=== PATIENT | female | born 1970 | race Caucasian/White ===

== ENCOUNTER 2017-10-04 00:15 | Inpatient (IN) ==
[2017-10-04] MEDS ORDERED: 0.9 % Sodium Chloride 500 ML IVC ONE (00:31)
--- NOTE | 2017-10-04 00:40 | Emergency Department Note ---
Disposition Clinical Impression: Anginal equivalent, Neck pain, Nonadherence to medication Disposition: Admitted As Inpatient Condition: Good Referrals: NONE,PCP [Primary Care Provider] - Forms: ED Satisfaction Letter Time of Disposition: 02:29 General Adult HPI - General Chief complaint: ED Chest Pain Stated complaint: chest/neck/back pain Time Seen by Provider: 10/04/17 00:27 Source: patient, EMS Mode of arrival: EMS Limitations: no limitations Nursing Notes Reviewed: Yes Vital Signs Reviewed: Yes - History of Present Illness HPI Narrative: patient presents to the ED with the chief complaint of not feeling well. states she started having diffuse abdominal cramping today and 7-8 episodes of NBNB diarrhea. States on an episode of diarrhea today at 23:30 she got off the toilet and felt very lightheaded, dizzy, associated with neck pain and L arm pain which is similar to her previous [place] several years ago. States she took a nitro and it gave her a headache but resolved her L arm pain and neck pain. States she just feels weak and rundown and not well. Denies any h/o DVT/PE and is not on anti-coagulation. Pain Scale: 4 - Related Data Previous Rx's Medication Instructions Recorded Aspirin 81 mg PO DAILY #30 tab.chew 01/12/15 Atorvastatin [Lipitor] 80 mg PO HS #30 tablet 01/12/15 Lisinopril [Zestril] 2.5 mg PO DAILY #30 tablet 01/12/15 Metoprolol [Lopressor] 25 mg PO BID #60 tablet 01/12/15 Nitroglycerin 0.4 mg SL Q5MIN PRN #30 tab.subl 01/12/15 Ticagrelor [Brilinta] 90 mg PO BID #60 tablet 01/12/15 Sulfamethoxazole/Trimeth DS 1 each PO BID #20 tablet 09/12/15 [Bactrim DS] Allergies Allergy/AdvReac Type Severity Reaction Status Date / Time aluminum hydroxide AdvReac Chest Pain Verified 09/12/15 06:13 [From Maalox Advanced] bismuth subsalicylate AdvReac Chest Pain Verified 09/12/15 06:13 [From Pepto-Bismol] calcium carbonate AdvReac Chest Pain Verified 09/12/15 06:13 [From Maalox Advanced] magnesium AdvReac Chest Pain Verified 09/12/15 06:13 [From Maalox Advanced] simethicone AdvReac Chest Pain Verified 09/12/15 06:13 [From Maalox Advanced] Review of Systems: As reviewed in the HPI. All other systems reviewed are negative or normal. Past Medical History - Past Medical History Medical history: Reports: diabetes, hypertension, myocardial infarction Surgical history: Reports: hysterectomy Psychiatric history: Reports: no psych history - Social History Smoking Status: Current every day smoker Smokeless Tobacco Status: No Alcohol use: Reports: none Drug use: Reports: none Physical Exam - General Limitations: no limitations General appearance: alert, in no apparent distress - Head Head exam: atraumatic, normocephalic, normal inspection - Eye Eye exam: Present: normal appearance, PERRL, EOMI - ENT ENT exam: normal exam, normal oropharynx, mucous membranes moist - Neck Neck exam: Present: normal inspection, full ROM, trachea midline - Chest Chest inspection: Present: normal inspection, symmetric chest wall rise - Respiratory Respiratory exam: Present: normal lung sounds bilaterally - Cardiovascular Cardiovascular exam: Present: regular rate, normal rhythm, normal heart sounds - Abdominal Exam Abdominal exam: Present: soft, Non-Tender. Absent: tenderness, distention, guarding, rebound, rigidity - Extremities Exam Extremities exam: Present: normal inspection, full ROM. Absent: tenderness, pedal edema - Neurological Exam Neurological exam: Present: alert, oriented X3 - Psychiatric Psychiatric exam: Present: normal affect, normal mood - Skin Skin exam: Present: warm, dry, intact, normal color Course Course Narrative: patient with anginal equivalent. Pain-free at this time. We will workup and likely admit - Reevaluation(s) Reevaluation #1: Labs are back and are unremarkable. Patient remained pain-free. She was having her anginal equivalent, however. We will admit to the hospital service. Reevaluation #2: Admitted the hospitalist service. Did request that we trend out her troponins which we will order. Patient also given aspirin Vital Signs Temperature 98.0 F 10/04/17 00:16 Pulse Rate 98 10/04/17 00:16 Respiratory Rate 16 10/04/17 00:16 Blood Pressure 114/78 10/04/17 00:16 O2 Sat by Pulse Oximetry 100 10/04/17 00:16 Temperature 98.0 F 10/04/17 00:16 Pulse Rate 104 10/04/17 01:53 Respiratory Rate 16 10/04/17 01:53 Blood Pressure 143/88 10/04/17 01:53 O2 Sat by Pulse Oximetry 99 10/04/17 01:53 Oxygen Delivery Oxygen Delivery Room Air Medical Decision Making - Medical Records Medical records reviewed: Yes I reviewed the patient's medical records. - Lab Data Lab results reviewed: Yes I reviewed the patient's lab results. Result diagrams: 10/04/17 01:28 10/04/17 01:28 Lab Results 10/04/17 10/04/17 10/04/17 Range/Units 01:28 01: 01:28 WBC 13.7 H (4.3-11.1) K/mcL RBC 5.35 H (3.82-4.97) M/mcL Hgb 16.4 H (11.5-15.4) g/dL Hct 46.5 H (35.3-44.9) % MCV 86.9 (83.0-100.0) fL MCH 30.7 (28.0-33.3) pg MCHC 35.3 (31.6-35.5) g/dL RDW 12.3 (11.5-14.5) % Plt Count 190 (140-400) K/mcL MPV 10.4 (9.4-12.4) fL Immature Gran % 0.3 (0-4) % Seg Neutrophils % 90.9 % Lymphocytes % 4.4 % Monocytes % 3.9 % Eosinophils % 0.4 % Basophils % 0.1 % Neutrophils # 12.5 H (1.6-8.9) K/mcL Lymphocytes # 0.6 (0.6-4.6) K/mcL Monocytes # 0.5 (0.0-1.3) K/mcL Eosinophils # 0.1 (0.0-0.6) K/mcL Basophils # 0.0 (0.0-0.2) K/mcL D-Dimer 317 (0-500) ng/mLFEU Sodium 130 L (136-145) mEq/L Potassium 4.2 (3.5-5.1) mEq/L Chloride 97 L (98-107) mEq/L Carbon Dioxide 23 (23-29) mEq/L BUN 13 (6-20) mg/dL Creatinine 0.66 (0.60-1.20) mg/dL Est GFR ( Amer) > 60 (> 60) Est GFR (Non-Af Amer) > 60 (> 60) BUN/Creatinine Ratio 20 (6-26) Glucose 297 H (70-105) mg/dL Calculated Osmolality 281 (280-300) Calcium 9.3 (8.6-10.3) mg/dL Total Bilirubin 0.9 (0.3-1.0) mg/dL Direct Bilirubin 0.1 (0.0-0.2) mg/dL Indirect Bilirubin 0.8 (0.0-1.2) mg/dL AST 11 L (13-39) Units/L ALT 18 (7-52) Units/L Alkaline Phosphatase 78 (34-104) Units/L Troponin I < 0.03 (< 0.04) ng/mL Serum Total Protein 6.7 (6.4-8.9) g/dL Albumin 4.1 (3.5-5.7) g/dL Globulin 2.6 (2.4-3.5) g/dL Albumin/Globulin Ratio 1.6 (1.1-2.2) Lipase 26 (11-82) Units/L Urine Color (Yellow) Urine Clarity (Clear) Urine pH (5.0-8.0) pH Units Ur Specific [place] (1.010-1.025) Urine Protein (Neg-Trace) mg/dL Urine Glucose (UA) (Normal) mg/dL Urine Ketones (Negative) mg/dL Urine Blood (Negative) Urine Nitrite (Negative) Urine Bilirubin (Negative) Urine Urobilinogen (Normal) mg/dL Ur Leukocyte Esterase (Negative) Urine Microscopic RBC (0-3) per hpf Urine Microscopic WBC (0-3) per hpf Ur Squamous Epith Cells (None-Few) per lpf Urine Bacteria (None-Few) per hpf Hyaline Casts (None-Few) per lpf Ur Culture Indicated? (NO) 10/04/17 Range/Units 01:41 WBC (4.3-11.1) K/mcL RBC (3.82-4.97) M/mcL Hgb (11.5-15.4) g/dL Hct (35.3-44.9) % MCV (83.0-100.0) fL MCH (28.0-33.3) pg MCHC (31.6-35.5) g/dL RDW (11.5-14.5) % Plt Count (140-400) K/mcL MPV (9.4-12.4) fL Immature Gran % (0-4) % Seg Neutrophils % % Lymphocytes % % Monocytes % % Eosinophils % % Basophils % % Neutrophils # (1.6-8.9) K/mcL Lymphocytes # (0.6-4.6) K/mcL Monocytes # (0.0-1.3) K/mcL Eosinophils # (0.0-0.6) K/mcL Basophils # (0.0-0.2) K/mcL D-Dimer (0-500) ng/mLFEU Sodium (136-145) mEq/L Potassium (3.5-5.1) mEq/L Chloride (98-107) mEq/L Carbon Dioxide (23-29) mEq/L BUN (6-20) mg/dL Creatinine (0.60-1.20) mg/dL Est GFR ( Amer) (> 60) Est GFR (Non-Af Amer) (> 60) BUN/Creatinine Ratio (6-26) Glucose (70-105) mg/dL Calculated Osmolality (280-300) Calcium (8.6-10.3) mg/dL Total Bilirubin (0.3-1.0) mg/dL Direct Bilirubin (0.0-0.2) mg/dL Indirect Bilirubin (0.0-1.2) mg/dL AST (13-39) Units/L ALT (7-52) Units/L Alkaline Phosphatase (34-104) Units/L Troponin I (< 0.04) ng/mL Serum Total Protein (6.4-8.9) g/dL Albumin (3.5-5.7) g/dL Globulin (2.4-3.5) g/dL Albumin/Globulin Ratio (1.1-2.2) Lipase (11-82) Units/L Urine Color Yellow (Yellow) Urine Clarity Clear (Clear) Urine pH 5.5 (5.0-8.0) pH Units Ur Specific [place] 1.026 H (1.010-1.025) Urine Protein 30 H (Neg-Trace) mg/dL Urine Glucose (UA) >=1000 H (Normal) mg/dL Urine Ketones Negative (Negative) mg/dL Urine Blood Negative (Negative) Urine Nitrite Negative (Negative) Urine Bilirubin Negative (Negative) Urine Urobilinogen Normal (Normal) mg/dL Ur Leukocyte Esterase Negative (Negative) Urine Microscopic RBC 3-5 H (0-3) per hpf Urine Microscopic WBC 0-3 (0-3) per hpf Ur Squamous Epith Cells Many H (None-Few) per lpf Urine Bacteria None Seen (None-Few) per hpf Hyaline Casts Few (None-Few) per lpf Ur Culture Indicated? NO (NO) - Radiology Data Radiology results reviewed: Yes I reviewed the patient's radiology results. - EKG Data EKG #1 EKG attestation: Yes I reviewed and interpreted this EKG. EKG results narrative: sinus rhythm, normal rate and intervals, left axis,LVH, no acute ischemic changes
[2017-10-04 01:39] LABS: Basophils % 0.1 %; Eosinophils # 0.1 K/mcL (0.0-0.6); Eosinophils % 0.4 %; Hematocrit 46.5 % (35.3-44.9); Hemoglobin 16.4 g/dL (11.5-15.4); Immature Granulocytes % 0.3 % (0-4); Lymphocytes # 0.6 K/mcL (0.6-4.6); Lymphocytes % 4.4 %; Mean Corpuscular HGB Conc 35.3 g/dL (31.6-35.5); Mean Corpuscular Hemoglobin 30.7 pg (28.0-33.3); Mean Corpuscular Volume 86.9 fL (83.0-100.0); Mean Platelet Volume 10.4 fL (9.4-12.4); Monocytes # 0.5 K/mcL (0.0-1.3); Monocytes % 3.9 %; Neutrophils # 12.5 K/mcL (1.6-8.9); Platelet Count 190 K/mcL (140-400); Red Blood Count 5.35 M/mcL (3.82-4.97); Red Cell Distribution Width 12.3 % (11.5-14.5); Segmented Neutrophils % 90.9 %
--- NOTE | 2017-10-04 01:40 | Emergency Department Note ---
Disposition Clinical Impression: Anginal equivalent, Neck pain, Nonadherence to medication Disposition: Admitted As Inpatient Condition: Good Referrals: NONE,PCP [Primary Care Provider] - Forms: ED Satisfaction Letter General Adult HPI - General Chief complaint: ED Chest Pain Stated complaint: chest/neck/back pain Time Seen by Provider: 10/04/17 00:27 Source: patient, EMS Mode of arrival: EMS Limitations: no limitations - History of Present Illness Pain Scale: 4 - Related Data Previous Rx's Medication Instructions Recorded Aspirin 81 mg PO DAILY #30 tab.chew 01/12/15 Atorvastatin [Lipitor] 80 mg PO HS #30 tablet 01/12/15 Lisinopril [Zestril] 2.5 mg PO DAILY #30 tablet 01/12/15 Metoprolol [Lopressor] 25 mg PO BID #60 tablet 01/12/15 Nitroglycerin 0.4 mg SL Q5MIN PRN #30 tab.subl 01/12/15 Ticagrelor [Brilinta] 90 mg PO BID #60 tablet 01/12/15 Sulfamethoxazole/Trimeth DS 1 each PO BID #20 tablet 09/12/15 [Bactrim DS] Allergies Allergy/AdvReac Type Severity Reaction Status Date / Time aluminum hydroxide AdvReac Chest Pain Verified 09/12/15 06:13 [From Maalox Advanced] bismuth subsalicylate AdvReac Chest Pain Verified 09/12/15 06:13 [From Pepto-Bismol] calcium carbonate AdvReac Chest Pain Verified 09/12/15 06:13 [From Maalox Advanced] magnesium AdvReac Chest Pain Verified 09/12/15 06:13 [From Maalox Advanced] simethicone AdvReac Chest Pain Verified 09/12/15 06:13 [From Maalox Advanced] Past Medical History - Past Medical History Medical history: Reports: diabetes, hypertension, myocardial infarction Surgical history: Reports: hysterectomy Psychiatric history: Reports: no psych history - Social History Smoking Status: Current every day smoker Smokeless Tobacco Status: No Alcohol use: Reports: none Drug use: Reports: none Physical Exam - General Limitations: no limitations General appearance: alert, in no apparent distress Course Vital Signs Temperature 98.0 F 10/04/17 00:16 Pulse Rate 98 10/04/17 00:16 Respiratory Rate 16 10/04/17 00:16 Blood Pressure 114/78 10/04/17 00:16 O2 Sat by Pulse Oximetry 100 10/04/17 00:16 Temperature 98.0 F 10/04/17 00:16 Pulse Rate 104 10/04/17 01:53 Respiratory Rate 16 10/04/17 01:53 Blood Pressure 143/88 10/04/17 01:53 O2 Sat by Pulse Oximetry 99 10/04/17 01:53 Oxygen Delivery Oxygen Delivery Room Air Medical Decision Making - Lab Data Result diagrams: 10/04/17 01:28 10/04/17 01:28 Lab Results 10/04/17 10/04/17 10/04/17 Range/Units 01:28 01:28 01:28 WBC 13.7 H (4.3-11.1) K/mcL RBC 5.35 H (3.82-4.97) M/mcL Hgb 16.4 H (11.5-15.4) g/dL Hct 46.5 H (35.3-44.9) % MCV 86.9 (83.0-100.0) fL MCH 30.7 (28.0-33.3) pg MCHC 35.3 (31.6-35.5) g/dL RDW 12.3 (11.5-14.5) % Plt Count 190 (140-400) K/mcL MPV 10.4 (9.4-12.4) fL Immature Gran % 0.3 (0-4) % Seg Neutrophils % 90.9 % Lymphocytes % 4.4 % Monocytes % 3.9 % Eosinophils % 0.4 % Basophils % 0.1 % Neutrophils # 12.5 H (1.6-8.9) K/mcL Lymphocytes # 0.6 (0.6-4.6) K/mcL Monocytes # 0.5 (0.0-1.3) K/mcL Eosinophils # 0.1 (0.0-0.6) K/mcL Basophils # 0.0 (0.0-0.2) K/mcL D-Dimer 317 (0-500) ng/mLFEU Sodium 130 L (136-145) mEq/L Potassium 4.2 (3.5-5.1) mEq/L Chloride 97 L (98-107) mEq/L Carbon Dioxide 23 (23-29) mEq/L BUN 13 (6-20) mg/dL Creatinine 0.66 (0.60-1.20) mg/dL Est GFR ( Amer) > 60 (> 60) Est GFR (Non-Af Amer) > 60 (> 60) BUN/Creatinine Ratio 20 (6-26) Glucose 297 H (70-105) mg/dL Calculated Osmolality 281 (280-300) Calcium 9.3 (8.6-10.3) mg/dL Total Bilirubin 0.9 (0.3-1.0) mg/dL Direct Bilirubin 0.1 (0.0-0.2) mg/dL Indirect Bilirubin 0.8 (0.0-1.2) mg/dL AST 11 L (13-39) Units/L ALT 18 (7-52) Units/L Alkaline Phosphatase 78 (34-104) Units/L Troponin I < 0.03 (< 0.04) ng/mL Serum Total Protein 6.7 (6.4-8.9) g/dL Albumin 4.1 (3.5-5.7) g/dL Globulin 2.6 (2.4-3.5) g/dL Albumin/Globulin Ratio 1.6 (1.1-2.2) Lipase 26 (11-82) Units/L Urine Color (Yellow) Urine Clarity (Clear) Urine pH (5.0-8.0) pH Units Ur Specific [place] (1.010-1.025) Urine Protein (Neg-Trace) mg/dL Urine Glucose (UA) (Normal) mg/dL Urine Ketones (Negative) mg/dL Urine Blood (Negative) Urine Nitrite (Negative) Urine Bilirubin (Negative) Urine Urobilinogen (Normal) mg/dL Ur Leukocyte Esterase (Negative) Urine Microscopic RBC (0-3) per hpf Urine Microscopic WBC (0-3) per hpf Ur Squamous Epith Cells (None-Few) per lpf Urine Bacteria (None-Few) per hpf Hyaline Casts (None-Few) per lpf Ur Culture Indicated? (NO) 10/04/17 Range/Units 01:41 WBC (4.3-11.1) K/mcL RBC (3.82-4.97) M/mcL Hgb (11.5-15.4) g/dL Hct (35.3-44.9) % MCV (83.0-100.0) fL MCH (28.0-33.3) pg MCHC (31.6-35.5) g/dL RDW (11.5-14.5) % Plt Count (140-400) K/mcL MPV (9.4-12.4) fL Immature Gran % (0-4) % Seg Neutrophils % % Lymphocytes % % Monocytes % % Eosinophils % % Basophils % % Neutrophils # (1.6-8.9) K/mcL Lymphocytes # (0.6-4.6) K/mcL Monocytes # (0.0-1.3) K/mcL Eosinophils # (0.0-0.6) K/mcL Basophils # (0.0-0.2) K/mcL D-Dimer (0-500) ng/mLFEU Sodium (136-145) mEq/L Potassium (3.5-5.1) mEq/L Chloride (98-107) mEq/L Carbon Dioxide (23-29) mEq/L BUN (6-20) mg/dL Creatinine (0.60-1.20) mg/dL Est GFR ( Amer) (> 60) Est GFR (Non-Af Amer) (> 60) BUN/Creatinine Ratio (6-26) Glucose (70-105) mg/dL Calculated Osmolality (280-300) Calcium (8.6-10.3) mg/dL Total Bilirubin (0.3-1.0) mg/dL Direct Bilirubin (0.0-0.2) mg/dL Indirect Bilirubin (0.0-1.2) mg/dL AST (13-39) Units/L ALT (7-52) Units/L Alkaline Phosphatase (34-104) Units/L Troponin I (< 0.04) ng/mL Serum Total Protein (6.4-8.9) g/dL Albumin (3.5-5.7) g/dL Globulin (2.4-3.5) g/dL Albumin/Globulin Ratio (1.1-2.2) Lipase (11-82) Units/L Urine Color Yellow (Yellow) Urine Clarity Clear (Clear) Urine pH 5.5 (5.0-8.0) pH Units Ur Specific [place] 1.026 H (1.010-1.025) Urine Protein 30 H (Neg-Trace) mg/dL Urine Glucose (UA) >=1000 H (Normal) mg/dL Urine Ketones Negative (Negative) mg/dL Urine Blood Negative (Negative) Urine Nitrite Negative (Negative) Urine Bilirubin Negative (Negative) Urine Urobilinogen Normal (Normal) mg/dL Ur Leukocyte Esterase Negative (Negative) Urine Microscopic RBC 3-5 H (0-3) per hpf Urine Microscopic WBC 0-3 (0-3) per hpf Ur Squamous Epith Cells Many H (None-Few) per lpf Urine Bacteria None Seen (None-Few) per hpf Hyaline Casts Few (None-Few) per lpf Ur Culture Indicated? NO (NO) Attestation Statement - Attestation Attestation: I examined this patient and my medical decision-making was reviewed with the Resident Physician. I agree with the documented findings, disposition and treatment plan as described except to the extent set forth below. Patient presents to the emergency department with a chief complaint of neck and arm pain. Patient has had diarrhea all day. She had an episode tonight where she had pain in the left arm and in her neck and some on her back. Patient is concerned because she has a history of an NH in 2014 during which time she had a stent placed. States this feels similar. Patient is not currently taking her medication secondary to insurance reasons. She does take a daily aspirin. Her symptoms are resolved at this time except for the weakness. Patient awake and alert in no distress on examination.` Heart regular lungs clear. Plan. Cardiac workup. Likely observation. EKG shows no acute abnormalities. Patient has a slight leukocytosis but no focal infection. Admitted for further cardiac workup.
[2017-10-04 01:51] LABS: Bilirubin,Urine Negative (Negative); Blood,Urine Negative (Negative); Clarity,Urine Clear (Clear); Color,Urine Yellow (Yellow); Glucose,Urine (UA) >=1000 mg/dL (Normal); Ketones,Urine Negative (Negative); Leukocyte Esterase,Urine Negative (Negative); Nitrite,Urine Negative (Negative); PH,Urine 5.5 pH Units (5.0-8.0); Protein,Urine 30 mg/dL (Neg-Trace); Specific Gravity,Urine 1.026 (1.010-1.025); Urobilinogen,Urine Normal (Normal)
[2017-10-04 01:58] LABS: Bacteria,Urine None Seen per hpf (None-Few); Hyaline Casts,Urine Few per lpf (None-Few); Squamous Epithelial Cell,Urine Many per lpf (None-Few); WBC,Urine 0-3 per hpf (0-3)
[2017-10-04 01:59] LABS: Troponin I < 0.03 ng/mL (< 0.04)
[2017-10-04 02:00] LABS: Alanine Aminotransferase 18 Units/L (7-52); Albumin 4.1 g/dL (3.5-5.7); Albumin/Globulin Ratio 1.6 (1.1-2.2); Alkaline Phosphatase 78 Units/L (34-104); Aspartate Amino Transferase 11 Units/L (13-39); BUN/Creatinine Ratio 20 (6-26); Bilirubin,Direct 0.1 mg/dL (0.0-0.2); Bilirubin,Indirect 0.8 mg/dL (0.0-1.2); Bilirubin,Total 0.9 mg/dL (0.3-1.0); Blood Urea Nitrogen 13 mg/dL (6-20); Calcium 9.3 mg/dL (8.6-10.3); Carbon Dioxide 23 mEq/L (23-29); Chloride 97 mEq/L (98-107); Globulin 2.6 g/dL (2.4-3.5); Glucose 297 mg/dL (70-105); Lipase 26 Units/L (11-82); Osmolality,Calculated 281 (280-300); Potassium 4.2 mEq/L (3.5-5.1); Sodium 130 mEq/L (136-145); Total Protein 6.7 g/dL (6.4-8.9); eGFR For Non-African Americans > 60 (> 60)
[2017-10-04] MEDS ORDERED: Aspirin 81 MG TAB.CHEW PO ONE (02:28)
[2017-10-04] MEDS ORDERED: Naloxone 0.4 MG/ML INJ IVP PRN (08:48)
[2017-10-04] MEDS ORDERED: Aspirin Enteric Coated 81 MG Tablet PO SCH (09:00)
--- NOTE | 2017-10-04 09:07 | Internal Med History&Physical ---
Date of Encounter: 10/04/17 Time of Encounter: 08:15 Internal Medicine - H&P: HPI Chief complaint: chest and neck discomfort History of present illness: Ms. Adame is a 46 year old female with past medical history of STEMI in 2015 s /p BMS stent in RCA, hypertension, diabetes, medication noncompliance, presented to the ED with 12 hour history of chest and neck discomfort. Describes a shooting, radiates to left shoulder, associated with nausea but no vomiting. She also complains of lightheadedness when the pain came on. No aggravating factor but was mildly relieved with nitro in the ED. No palpitation , orthopnea, PND, or LE swelling. She has also had diarrhea for 1 day, 7 episodes of watery diarrhea. Her boyfriend was also not feeling well before her symptoms came on. Denies fever or chills, abdominal pain, dysuria, or hematuria. He GED she was tachycardic but otherwise is stable, saturating well on room air. Initial workup revealed leukocytosis of 13.7 and glucose of 297. Troponins done in 3 hour interval were negative. EKG was not physically available for review but was reported to have no significant abnormalities. CXR WNL. Past Med Surg Social Fam HX - Past Medical History Medical history: diabetes, hypertension, myocardial infarction Psychiatric history: no psych history - Past Surgical History Surgical History: hysterectomy - Social History Smoking Status: Current every day smoker Packs per day: 0.5 Smokeless Tobacco Status: No Alcohol use: none Drug use: none - Family History Mother Hx Family Cardiac Disorders: Yes Internal Medicine - H&P: Meds RX: Aspirin 81 mg PO DAILY #30 tab.chew 01/12/15 [Rx] RX: Atorvastatin [Lipitor] 80 mg PO HS #30 tablet 01/12/15 [Rx] RX: Lisinopril [Zestril] 2.5 mg PO DAILY #30 tablet 01/12/15 [Rx] RX: Metoprolol [Lopressor] 25 mg PO BID #60 tablet 01/12/15 [Rx] RX: Nitroglycerin 0.4 mg SL Q5MIN PRN #30 tab.subl 01/12/15 [Rx] RX: Ticagrelor [Brilinta] 90 mg PO BID #60 tablet 01/12/15 [Rx] Sulfamethoxazole/Trimeth DS [Bactrim DS] 1 each PO BID #20 tablet 09/12/15 [Rx] 3 Allergy/AdvReac Type Severity Reaction Status Date / Time aluminum hydroxide AdvReac Chest Pain Verified 09/12/15 06:13 [From Maalox Advanced] bismuth subsalicylate AdvReac Chest Pain Verified 09/12/15 06:13 [From Pepto-Bismol] calcium carbonate AdvReac Chest Pain Verified 09/12/15 06:13 [From Maalox Advanced] magnesium AdvReac Chest Pain Verified 09/12/15 06:13 [From Maalox Advanced] simethicone AdvReac Chest Pain Verified 09/12/15 06:13 [From Maalox Advanced] All Systems PM: A 10-system review of systems was performed and is negative for pertinent findings except as documented above in the HPI. - Constitutional Vitals: Temp Pulse Resp BP Pulse Ox 98.4 F 86 16 157/88 96 10/04/17 08:16 10/04/17 08:16 10/04/17 08:16 10/04/17 08:16 10/04/17 08:16 Internal Med - H&P Results - Labs CBC & Chem 7: 10/04/17 01:28 10/04/17 01:28 Labs: Cardiac Enzymes 10/04/17 Range/Units 04:43 Troponin I < 0.03 (< 0.04) ng/mL - Assessment and plan (1) Anginal equivalent Current Visit: Yes Status: Acute Assessment and plan: Presented with neck pain radiating to left shoulder which was her presenting symptom back in 2014 when she was diagnosed with STEMI. Troponin negative 2 in 3 hour interval, EKG reported to have no significant abnormalities but unable to find a physical copy. We will repeat EKG Discussed with cardiology over the phone; given her medication noncompliance, we will proceed with a stress test first before deciding on the possible [facility] check A1c and lipid panel (2) Nonadherence to medication Current Visit: No Status: Chronic Assessment and plan: Stressed the importance of medication adherence given the prior stenting. (3) Diabetes mellitus Current Visit: No Status: Chronic Assessment and plan: Last A1c in 2014 was 7.5. Not taking any medicine at home Start moderate dose sliding scale coverage repeat A1c Qualifiers: Diabetes mellitus type: type 2 Diabetes mellitus complication status: with neurologic complications Diabetes mellitus complication detail: with unspecified neuropathy Qualified Code(s): E11.40 - Type 2 diabetes mellitus with diabetic neuropathy, unspecified (4) Hypertension Current Visit: No Status: Chronic Assessment and plan: Conjugated by noncompliance. We will monitor Qualifiers: Hypertension type: unspecified Qualified Code(s): I10 - Essential (primary ) hypertension - Time Spent With Patient Total time spent is greater than 50% in coordination of care (as documented) at patient's floor/unit and/or counseling patient:
[2017-10-04] MEDS ORDERED: *HR* Dextrose 50 % in Water (Syg) 50 ML SYRINGE IVP PRN (09:15)
[2017-10-04] MEDS ORDERED: Dextrose Gel 15 GM/37.5 ML TUBE PO PRN ×2 (09:15)
[2017-10-04] MEDS ORDERED: D5% in Water 1,000 ML IVC PRN (09:15)
[2017-10-04 11:49] LABS: Estimated Average Glucose 206 mg/dl; Hemoglobin A1C 8.8 %
[2017-10-04 11:55] LABS: Troponin I < 0.03 ng/mL (< 0.04)
[2017-10-04 12:00] LABS: Chol/HDL Ratio 5.4 (0-4.9); Cholesterol 174 mg/dL (< 200); HDL Cholesterol 32 mg/dL (40-59); LDL Cholesterol,Calculated 109 mg/dL (0-99); Triglycerides 163 mg/dL (< 150)
[2017-10-04] MEDS ORDERED: Regadenoson 0.4 MG/5 ML SYRINGE IVP ONE (13:30)
--- NOTE | 2017-10-04 13:35 | Cardiology Consult Note ---
<Cholo Arora - Last Filed: 10/04/17 13:32> Date of Encounter: 10/04/17 Time of Encounter: 13:30 Assessment and Plan (1) Anginal equivalent Current Visit: Yes Status: Acute Typical anginal symptoms in patient with known CAD. States that she quit taking all medications two years ago. Troponin negative x 2. EKG with no acute T/ST changes. Stress test pending. Check TTE. NTG PRN chest pain. Recommend asa, statin, and bb. (2) CAD (coronary artery disease) Current Visit: Yes Status: Acute H/o CAD s/p STEMI and PCI in 2014. [facility] 2014 showed 30% stenosis LMCA, 50% stenosis LAD after D1 and 70% stenosis mLAD, 90% stenosis D1 (small vessel). 50 % stenosis in the Mid Circumflex.80% stenosis in the 1st Marginal. 95% stenosis in the Mid RCA s/p PCI with ERIC. TTE 01/11/15 showed EF 65-70%, no significant valvular disease. Asa, statin, bb. Smoking cessation discussed. Medication compliance stressed. Qualifiers: Coronary Disease-Associated Artery/Lesion type: [place] artery [place] vs. transplanted heart: [place] heart Associated angina: with unspecified angina Qualified Code(s): I25.119 - Atherosclerotic heart disease of [place] coronary artery with unspecified angina pectoris Discussion w patient/family: The assessment and plan as outlined above was discussed with the patient and/or family members who expressed understanding and agreement. All questions were answered. Thank you for involving us in the care of your patient. Please call with any questions. History of Present Illness Consult date: 10/04/17 Requesting physician: Nirmal Herman Wadb Consult reason: Chest pain, history of CAD and non-compliance Chief complaint: Chest pain History of present illness: Ms. Adame is a 46 year old female with past medical history of CAD s/p STEMI and PCI in 2015, HTN, HLD, DM type II, and tobacco use who presents with the c/ o arm and neck pain, and feeling flushed. Symptoms started while she was working. She sat down at work and started to feel better. She took one SL NTG with no relief. She thinks the NTG was 3 years old. States that she lost her medical card two years ago and stopped taking all of her medications. She unfortunately continues to smoke 1/2 pack a day. States she was feeling well up until this event. She was seen in the stress lab. During her stress test she did c/o neck and ARM pain. No changes noted on her EKG. Troponin negative x2 . Past Med Surg Social Fam HX - Past Medical History Attestation: Yes The following information was validated with the patient. Medical history: coronary artery disease, diabetes, hypertension, myocardial infarction, valvular heart disease Psychiatric history: no psych history - Past Surgical History Surgical History: hysterectomy - Social History Smoking Status: Current every day smoker Packs per day: 0.5 Smokeless Tobacco Status: No Alcohol use: none Drug use: none - Family History Mother Hx Family Cardiac Disorders: Yes Medications and Allergies Aspirin 81 mg PO DAILY #30 tab.chew 01/12/15 [Rx] 3 Allergy/AdvReac Type Severity Reaction Status Date / Time aluminum hydroxide AdvReac Chest Pain Verified 09/12/15 06:13 [From Maalox Advanced] bismuth subsalicylate AdvReac Chest Pain Verified 09/12/15 06:13 [From Pepto-Bismol] calcium carbonate AdvReac Chest Pain Verified 09/12/15 06:13 [From Maalox Advanced] magnesium AdvReac Chest Pain Verified 09/12/15 06:13 [From Maalox Advanced] simethicone AdvReac Chest Pain Verified 09/12/15 06:13 [From Maalox Advanced] All Systems Review: The remainder of the systems were reviewed and are negative Physical Examination Vital Signs, Last 4 Hours Temp Pulse Resp BP Pulse Ox 10/04/17 11:56 99.1 F 89 14 123/77 96 General: Conversant, No Apparent Distress HEENT: Atraumatic, Normocephaly, Mucus Membranes Moist Neck: No JVD, Normal carotid pulses Cardiac: Reg Rate and Rhythm, Normal S1 and S2, No Murmur Lungs: Normal Breath Sounds, No Wheeze, Rales, Rhonchi Neuro: Alert and responsive, No focal deficits noted Abdomen: Soft, Non-Tender Skin: No rashes noted on visualized skin Musculoskeletal: No Chest Wall Tenderness Extremities: No Clubbing, No Cyanosis, No Edema, Normal Pulses Results 10/04/17 01:28 10/04/17 01:28 Lab Results 10/04/17 10/04/17 04:43 10:29 Troponin I < 0.03 < 0.03 - Imaging and Cardiology Stress Test: pending Echo: pending Cardiac cath: report reviewed - EKG Interpretation EKG results cardiology: personally reviewed (SR with no acute ST changes.) Consult Discharge Plan - Plan Referrals: NONE,PCP [Primary Care Provider] - <Itzel Romero - Last Filed: 10/04/17 16:19> Date of Encounter: 10/04/17 - Attending Attestation I examined this patient and my medical decision-making was reviewed with the [employer]. I agree with the documented findings, disposition and treatment plan as described. Ms. Adame presents with chest pain with negative troponins. Has known extensive CAD having undergone cath and stenting in 2014. She stopped all of her medications about about 2 years ago during a stressful time in her life. She has ongoing risk factors and continues to smoke. Her stress test demonstrated inferior and inferolateral perfusion defect consistent with ischemia possibly correlating to the right territory or dominant OM. We discussed LHC, R/B/A. The patient expressed understanding and agreement to proceed. Denies upcoming elective procedures. No history of bleeding events. Renal function normal. Assessment and Plan Discussion w patient/family: The assessment and plan as outlined above was discussed with the patient and/or family members who expressed understanding and agreement. All questions were answered. Thank you for involving us in the care of your patient. Please call with any questions. History of Present Illness History of present illness: Ms. Adame is a 46 year old female All Systems Review: The remainder of the systems were reviewed and are negative Physical Examination Vital Signs, Last 4 Hours Temp Pulse Resp BP Pulse Ox 10/04/17 15:53 99.2 F 81 15 160/92 98 Results 10/04/17 01:28 10/04/17 01:28 Lab Results 10/04/17 10/04/17 04:43 10:29 Troponin I < 0.03 < 0.03
[2017-10-04] MEDS: Insulin LISPRO 300 UNITS/3 ML VIAL SQ SCH ×2 (16:18→17:36)
[2017-10-05] MEDS: Insulin LISPRO 300 UNITS/3 ML VIAL SQ SCH ×5 (00:29→21:29)
[2017-10-05 01:27] LABS: BUN/Creatinine Ratio 14 (6-26); Blood Urea Nitrogen 13 mg/dL (6-20); Calcium 9.1 mg/dL (8.6-10.3); Carbon Dioxide 29 mEq/L (23-29); Chloride 106 mEq/L (98-107); Glucose 237 mg/dL (70-105); Osmolality,Calculated 282 (280-300); Potassium 4.5 mEq/L (3.5-5.1); Sodium 132 mEq/L (136-145); eGFR For Non-African Americans > 60 (> 60)
[2017-10-05 01:40] LABS: Basophils % 0.2 %; Eosinophils # 0.2 K/mcL (0.0-0.6); Eosinophils % 2.5 %; Hematocrit 43.4 % (35.3-44.9); Immature Granulocytes % 0.3 % (0-4); Lymphocytes # 1.3 K/mcL (0.6-4.6); Lymphocytes % 21.2 %; Mean Corpuscular HGB Conc 33.6 g/dL (31.6-35.5); Mean Corpuscular Hemoglobin 29.8 pg (28.0-33.3); Mean Corpuscular Volume 88.6 fL (83.0-100.0); Mean Platelet Volume 10.6 fL (9.4-12.4); Monocytes # 0.6 K/mcL (0.0-1.3); Monocytes % 8.9 %; Neutrophils # 4.2 K/mcL (1.6-8.9); Platelet Count 192 K/mcL (140-400); Red Cell Distribution Width 12.4 % (11.5-14.5); Segmented Neutrophils % 66.9 %
[2017-10-05 01:45] LABS: Hemoglobin 14.6 g/dL (11.5-15.4)
[2017-10-05] MEDS ORDERED: 0.9 % Sodium Chloride 1,000 ML ONE ×2 (09:55→10:25)
[2017-10-05] MEDS ORDERED: Heparin 1,000 UNITS/500 mL 500 ML ONE (09:55)
[2017-10-05] MEDS ORDERED: ISOVUE-370 200 ML INFUS..BTL IV ONE ×2 (09:56→10:25)
[2017-10-05] MEDS: Aspirin 81 MG TAB.CHEW PO SCH (09:56)
[2017-10-05] MEDS ORDERED: *HR* Heparin 10,000 UNIT/10 ML VIAL ONE (09:56)
[2017-10-05] MEDS ORDERED: Nitroglycerin 1,000 MCG/10 ML VIAL IV ONE (09:56)
[2017-10-05] MEDS ORDERED: *HR* FentaNYL (PF) 100 MCG/2 ML VIAL ONE (10:25)
[2017-10-05] MEDS ORDERED: *HR* Midazolam HCl 2 MG/2 ML VIAL ONE (10:25)
[2017-10-05] MEDS ORDERED: Tirofiban 12.5 MG/250ML 12.5 MG/250 ML BAG ONE (10:25)
--- NOTE | 2017-10-05 10:36 | Pre-Sedation Evaluation ---
Pre-sedation evaluation - Pre-sedation checklist Date of procedure: 10/05/17 Procedure: C Recent Vitals: Last Vital Signs Temp 98.1 F 10/05/17 07:08 Pulse 65 10/05/17 07:08 Resp 16 10/05/17 07:08 BP 129/80 10/05/17 07:08 Pulse Ox 96 10/05/17 07:08 Previous reaction to sedatives/anesthetics: No Dietary Status: NPO after Midnight Dentition: No loose teeth or bridges ASA Classification *see protocol: CLASS II-Mild systemic disease Cardiac Registry (Cardio Only) - Functional Capacity Functional Capacity: >=4 METS with symptoms - Clincal Frailty Scale Clinical Frailty Scale: Managing Well
--- NOTE | 2017-10-05 13:19 | Cardiothoracic Consult Note ---
Date of Encounter: 10/05/17 Time of Encounter: 13:13 - History of Present Illness Consult date: 10/05/17 Consult reason: Evaluation for CABG Chief complaint: Chest pain History of present illness: Patient seen and examined. In summary, Ms. Adame is a 46 year old obese , white female with past medical history significant for known coronary artery disease (status post PCI stenting of right coronary artery during prior admission for acute AR in 2014), hypertension, hyperlipidemia, poorly controlled diabetes mellitus type 2, and active tobacco abuse who presented with symptoms of chest pain radiating down her arm and into her neck that began yesterday while she was working. She was admitted to the hospital and worked up included troponins which were negative followed by a stress test which was positive. She underwent a cardiac catheterization via right femoral access today which demonstrated severe three-vessel coronary disease including an occluded RCA (previously stented) with [id number] collaterals. I was asked to see the patient in consultation for further evaluation and treatment recommendations pertaining to possible CABG. The patient currently smokes approximately half pack per day. She currently is without any chest pain is comfortable lying in bed. Her past surgical history is notable only for hysterectomy. She has a strong family history for coronary disease. Today we discussed the patient's findings on cardiac catheter and the recommendation for CABG. I explained to the patient that Dr. Thapa would be seeing her as well to make a definitive determination regarding CABG. I explained to the patient would likely stand the hospital prior to her surgery and I will be reviewing the patient's films and discussing with Dr. Thapa. Past Med Surg Social Fam HX - Past Medical History Medical history: coronary artery disease, diabetes, hypertension, myocardial infarction, valvular heart disease Psychiatric history: no psych history - Past Surgical History Surgical History: hysterectomy - Social History Smoking Status: Current every day smoker Packs per day: 0.5 Smokeless Tobacco Status: No Alcohol use: none Drug use: none - Family History Mother Hx Family Cardiac Disorders: Yes Medications and Allergies Aspirin 81 mg PO DAILY #30 tab.chew 01/12/15 [Rx] 3 Allergy/AdvReac Type Severity Reaction Status Date / Time aluminum hydroxide AdvReac Chest Pain Verified 09/12/15 06:13 [From Maalox Advanced] bismuth subsalicylate AdvReac Chest Pain Verified 09/12/15 06:13 [From Pepto-Bismol] calcium carbonate AdvReac Chest Pain Verified 09/12/15 06:13 [From Maalox Advanced] magnesium AdvReac Chest Pain Verified 09/12/15 06:13 [From Maalox Advanced] simethicone AdvReac Chest Pain Verified 09/12/15 06:13 [From Maalox Advanced] All Systems Review: The remainder of the systems were reviewed and are negative other than that stated in the history of present illness - Cardiovascular Cardiovascular: as per HPI Physical Examination Vital Signs, Last 4 Hours Temp Pulse Resp BP Pulse Ox 10/05/17 13:04 63 16 155/96 97 10/05/17 12:40 16 156/97 98 10/05/17 12:15 97.9 F 59 16 148/93 98 10/05/17 11:50 97.9 F 66 16 159/89 96 10/05/17 11:34 97.8 F 67 16 147/94 97 General: Well developed, Well nourished HEENT: Atraumatic, Normocephaly Neck: Normal carotid pulses Cardiac: Reg Rate and Rhythm, Normal S1 and S2, No Murmur Lungs: Normal Breath Sounds Neuro: Alert and responsive Vascular: Normal capillary refill Extremities: Other (Right groin catheterization site dressing intact, clean and dry) Results 10/05/17 00:32 10/05/17 00:32 Lab Results, Last 24 hours 10/05/17 10/05/17 00:32 00:32 WBC 6.3 D Hgb 14.6 D Hct 43.4 Plt Count 192 Sodium 132 L Potassium 4.5 Chloride 106 Carbon Dioxide 29 BUN 13 Creatinine 0.95 Glucose 237 H Calcium 9.1 Consult Discharge Plan - Plan Referrals: NONE,PCP [Primary Care Provider] -
--- NOTE | 2017-10-05 16:59 | Internal Med Progress Note ---
Date of Encounter: 10/05/17 Time of Encounter: 16:54 - Assessment and plan (1) Anginal equivalent Current Visit: Yes Status: Acute Assessment and plan: Patient with history of coronary artery disease with STEMI status post PCI of the RCA in 2014; patient very noncompliant post PCI and has been off medications for 2 years -Status post left heart catheterization which demonstrated severe three-vessel coronary disease including an occluded RCA which was stented in 2015 with left- to-right collaterals (see cardiology and cardiothoracic notes for further details) -Cardiothoracic and cardiology following the patient -Dr. Thapa will evaluate patient to make a determination on CABG -Monitor telemetry -Monitor right groin status post left heart catheter -Continue aspirin, beta bessie, statin -EF 60% -Counseled extensively regarding medical compliance (2) Hypertension Current Visit: Yes Status: Chronic Assessment and plan: Continue beta bessie; may need up titration -Monitor blood pressure Qualifiers: Hypertension type: unspecified Qualified Code(s): I10 - Essential (primary ) hypertension (3) Diabetes mellitus Current Visit: Yes Status: Chronic Assessment and plan: Last A1c in 2014 was 7.5. Not taking any medicine at home continue moderate dose sliding scale coverage A1c is 8.8 currently Likely needs metformin discharge +/- second agent follow accuchecks Qualifiers: Diabetes mellitus type: type 2 Diabetes mellitus complication status: with neurologic complications Diabetes mellitus complication detail: with unspecified neuropathy Qualified Code(s): E11.40 - Type 2 diabetes mellitus with diabetic neuropathy, unspecified (4) Nonadherence to medication Current Visit: Yes Status: Inactive Assessment and plan: Counseled extensively on importance of medical compliance (5) Tobacco dependence Current Visit: Yes Status: Acute Assessment and plan: Counseled regarding smoking cessation - Time Spent With Patient Total time spent is greater than 50% in coordination of care (as documented) at patient's floor/unit and/or counseling patient: 25 - 35 minutes - Subjective Interval history: Patient seen and examined at bedside. Patient had no acute overnight events. Patient denies any complaints currently. Patient denies any chest pain, shortness breath, nausea, vomiting, diarrhea. Patient's afebrile. - Constitutional Vitals: Temp Pulse Resp BP Pulse Ox 98.0 F 68 15 145/79 97 10/05/17 15:43 10/05/17 15:43 10/05/17 15:43 10/05/17 15:43 10/05/17 15:43 Exam: Constitutional: No acute distress, Alert Psych: AAO x 3 HEENT: NCAT, EOMI Neck: supple, no JVD Cardio: regular rate and rhythm, +s1s2, no murmurs/rubs/gallops, no JVD Resp: clear to ascultation bilaterally, no wheezes/rales/ronchi Abd: soft, non tender/non distended, positive bowel sounds, no gaurding/reboud/ ridgitity Extremities: no clubbing/cyanosis/edema appreciated; right groin without hematoma Neuro: no focal deficits appreciated Lymph: no cervical/supraclavicular adenopahty apprecitated Internal Medicine: Result - Labs CBC & Chem 7: 10/05/17 00:32 10/05/17 00:32 Labs: Short CBC 10/05/17 Range/Units 00:32 WBC 6.3 D (4.3-11.1) K/mcL Hgb 14.6 D (11.5-15.4) g/dL Hct 43.4 (35.3-44.9) % Plt Count 192 (140-400) K/mcL Neutrophils # 4.2 (1.6-8.9) K/mcL BMP 10/05/17 00:32 Sodium 132 L Potassium 4.5 Chloride 106 Carbon Dioxide 29 BUN 13 Creatinine 0.95 Glucose 237 H Calcium 9.1 - ABG Interpretation ABG results: PT/INR, D-dimer D-Dimer 317 ng/mLFEU (0-500) 10/04/17 01:28 - Impressions Impressions Echocardiogram 10/05/17 14:12 Impressions: LVEF 60%. Moderate left ventricular diastolic dysfunction. Normal right ventricular structure and function. Mild-moderate mitral regurgitation. No pulmonary hypertension. IVC is dilated. Left Ventricular Wall Motion: Rest Echo Findings All wall segments showed normal motion. Findings: Study Quality * Technically adequate exam. ECG Findings * Normal sinus rhythm. Left Ventricle * LVEF 60%. * Normal LV chamber size, wall thickness and function. * Moderate left ventricular diastolic dysfunction. Right Ventricle * Normal right ventricular structure and function. Left Atrium * Mildly dilated left atrium. Right Atrium * Normal right atrial size. Mitral Valve * Normal mitral valve structure. * No mitral stenosis. * Mild-moderate mitral regurgitation. Aortic Valve * No aortic regurgitation. * Trileaflet aortic valve. * No aortic stenosis. Tricuspid Valve * Tricuspid valve not well visualized. * No tricuspid regurgitation. * Estimated RA pressure is 8 mmHg. * Estimated RVSP is 25 mmHg. * No pulmonary hypertension. Pulmonic Valve * Pulmonic valve is not well visualized. * No pulmonic stenosis. * Trace pulmonic regurgitation. Pulmonary Artery * Pulmonary artery not well visualized. Aorta * Normally sized aortic root. Pericardium * There is no pericardial effusion present. Interatrial Septum * No evidence of PFO by color Doppler. IVC * The IVC is dilated. * * > 50% respiratory change Consult Discharge Plan - Plan Referrals: NONE,PCP [Primary Care Provider] -
[2017-10-05] MEDS: *HR* Heparin 5,000 UNIT/ML VIAL SQ SCH (21:29)
[2017-10-06] MEDS: Acetaminophen 325 MG TABLET PO PRN (03:45)
[2017-10-06 05:50] LABS: Basophils % 0.3 %; Eosinophils # 0.3 K/mcL (0.0-0.6); Eosinophils % 3.3 %; Hematocrit 42.7 % (35.3-44.9); Hemoglobin 14.7 g/dL (11.5-15.4); Immature Granulocytes % 0.4 % (0-4); Lymphocytes # 1.7 K/mcL (0.6-4.6); Lymphocytes % 22.3 %; Mean Corpuscular HGB Conc 34.4 g/dL (31.6-35.5); Mean Corpuscular Hemoglobin 30.1 pg (28.0-33.3); Mean Corpuscular Volume 87.5 fL (83.0-100.0); Mean Platelet Volume 10.4 fL (9.4-12.4); Monocytes # 0.6 K/mcL (0.0-1.3); Monocytes % 7.6 %; Platelet Count 205 K/mcL (140-400); Red Blood Count 4.88 M/mcL (3.82-4.97); Red Cell Distribution Width 12.2 % (11.5-14.5); Segmented Neutrophils % 66.1 %
[2017-10-06 06:08] LABS: BUN/Creatinine Ratio 21 (6-26); Blood Urea Nitrogen 14 mg/dL (6-20); Calcium 8.9 mg/dL (8.6-10.3); Carbon Dioxide 31 mEq/L (23-29); Chloride 101 mEq/L (98-107); Glucose 221 mg/dL (70-105); Osmolality,Calculated 287 (280-300); Potassium 4.2 mEq/L (3.5-5.1); Sodium 135 mEq/L (136-145); eGFR For Non-African Americans > 60 (> 60)
[2017-10-06] MEDS: *HR* Heparin 5,000 UNIT/ML VIAL SQ SCH ×3 (06:24→21:31)
[2017-10-06] MEDS: Insulin LISPRO 300 UNITS/3 ML VIAL SQ SCH ×4 (07:58→21:30)
[2017-10-06] MEDS: Aspirin 81 MG TAB.CHEW PO SCH (07:59)
--- NOTE | 2017-10-06 08:46 | Internal Med Progress Note ---
Date of Encounter: 10/06/17 Time of Encounter: 08:45 - Assessment and plan (1) Anginal equivalent Current Visit: Yes Status: Acute Assessment and plan: Patient with history of coronary artery disease with STEMI status post PCI of the RCA in 2014; patient very noncompliant post PCI and has been off medications for 2 years -Multi vessel CAD not amenable to PCI -Status post left heart catheterization which demonstrated severe three-vessel coronary disease including an occluded RCA which was stented in 2015 with left- to-right collaterals (see cardiology and cardiothoracic notes for further details) -Cardiothoracic and cardiology following the patient -Dr. Thapa will evaluate patient to make a determination on CABG; likely tomorrow -Monitor telemetry -Monitor right groin status post left heart catheter -Continue aspirin, beta bessie, statin -EF 60% -Counseled extensively regarding medical compliance (2) Hypertension Current Visit: Yes Status: Chronic Assessment and plan: Continue beta bessie; may need up titration her heart rate in the low 60s; stable for now -Monitor blood pressure Qualifiers: Hypertension type: unspecified Qualified Code(s): I10 - Essential (primary ) hypertension (3) Diabetes mellitus Current Visit: Yes Status: Chronic Assessment and plan: Last A1c in 2014 was 7.5. Not taking any medicine at home continue moderate dose sliding scale coverage A1c is 8.8 currently Likely needs metformin discharge +/- second agent start Low-dose Lantus 5mg qhs for now follow accuchecks Qualifiers: Diabetes mellitus type: type 2 Diabetes mellitus complication status: with neurologic complications Diabetes mellitus complication detail: with unspecified neuropathy Qualified Code(s): E11.40 - Type 2 diabetes mellitus with diabetic neuropathy, unspecified (4) Nonadherence to medication Current Visit: Yes Status: Inactive Assessment and plan: Counseled extensively on importance of medical compliance (5) Tobacco dependence Current Visit: Yes Status: Acute Assessment and plan: Counseled regarding smoking cessation - Time Spent With Patient Total time spent is greater than 50% in coordination of care (as documented) at patient's floor/unit and/or counseling patient: less than 15 minutes - Subjective Interval history: Patient seen and examined at bedside. Patient had no acute overnight events. Patient denies any complaints currently. Patient denies any chest pain, shortness breath, nausea, vomiting, diarrhea. Patient's afebrile. Tolerating diet without discomfort. - Constitutional Vitals: Temp Pulse Resp BP Pulse Ox 97.7 F 66 18 153/83 99 10/06/17 06:50 10/06/17 06:50 10/06/17 06:50 10/06/17 06:50 10/06/17 06:50 Exam: Constitutional: No acute distress, Alert Psych: AAO x 3 HEENT: NCAT, EOMI Neck: supple, no JVD Cardio: regular rate and rhythm, +s1s2, no murmurs/rubs/gallops, no JVD Resp: clear to ascultation bilaterally Abd: soft, non tender/non distended, positive bowel sounds, Extremities: no clubbing/cyanosis/edema appreciated; right groin with no hematoma Neuro: no focal deficits appreciated Internal Medicine: Result - Labs CBC & Chem 7: 10/06/17 04:41 10/06/17 04:41 Labs: Short CBC 10/06/17 Range/Units 04:41 WBC 7.6 (4.3-11.1) K/mcL Hgb 14.7 (11.5-15.4) g/dL Hct 42.7 (35.3-44.9) % Plt Count 205 (140-400) K/mcL Neutrophils # 5.0 (1.6-8.9) K/mcL BMP 10/06/17 04:41 Sodium 135 L Potassium 4.2 Chloride 101 Carbon Dioxide 31 H BUN 14 Creatinine 0.68 Glucose 221 H Calcium 8.9 - ABG Interpretation ABG results: PT/INR, D-dimer D-Dimer 317 ng/mLFEU (0-500) 10/04/17 01:28 - Impressions Impressions Echocardiogram 10/05/17 14:12 Impressions: LVEF 60%. Moderate left ventricular diastolic dysfunction. Normal right ventricular structure and function. Mild-moderate mitral regurgitation. No pulmonary hypertension. IVC is dilated. Left Ventricular Wall Motion: Rest Echo Findings All wall segments showed normal motion. Findings: Study Quality * Technically adequate exam. ECG Findings * Normal sinus rhythm. Left Ventricle * LVEF 60%. * Normal LV chamber size, wall thickness and function. * Moderate left ventricular diastolic dysfunction. Right Ventricle * Normal right ventricular structure and function. Left Atrium * Mildly dilated left atrium. Right Atrium * Normal right atrial size. Mitral Valve * Normal mitral valve structure. * No mitral stenosis. * Mild-moderate mitral regurgitation. Aortic Valve * No aortic regurgitation. * Trileaflet aortic valve. * No aortic stenosis. Tricuspid Valve * Tricuspid valve not well visualized. * No tricuspid regurgitation. * Estimated RA pressure is 8 mmHg. * Estimated RVSP is 25 mmHg. * No pulmonary hypertension. Pulmonic Valve * Pulmonic valve is not well visualized. * No pulmonic stenosis. * Trace pulmonic regurgitation. Pulmonary Artery * Pulmonary artery not well visualized. Aorta * Normally sized aortic root. Pericardium * There is no pericardial effusion present. Interatrial Septum * No evidence of PFO by color Doppler. IVC * The IVC is dilated. * * > 50% respiratory change - VTE Documentation of Mechanical Device: Graduated compression elastic hosiery Consult Discharge Plan - Plan Referrals: NONE,PCP [Primary Care Provider] -
--- NOTE | 2017-10-06 10:07 | Cardiology Progress Note ---
Date of Encounter: 10/06/17 Time of Encounter: 09:00 Assessment and Plan (1) Chest pain Current Visit: Yes Status: Acute Patient presented with typical chest pain symptoms/anginal equivalent. Troponin negative x3. No acute ECG changes. Low level regadenoson 10/04/17: gated EF=60%, medium sized, moderate intensity reversible inferior and inferolateral defect suggestive of ischemia, visual and quantitative TID noted with ratio of 1.69. TTE 10/04/17: LVEF 60%, moderate LVDD, mild-moderate MR, normal wall motion [facility] 10/05/17: severe 3v CAD--CABG evaluation recommended; 30% pLMCA, 60% pLAD, 70 % mid and distal LAD, 90% 1st diagonal; 65% pLCx, 70% mLCx and 70% 1st OM; 100% mRCA with collaterals CT surgery consulted and following. Dr. Thapa to return tomorrow to determine definitive CABG date. Continue asa, statin, BB. NO chest pain overnight. No issues with right groin cath site. Will continue to follow. Qualifiers: Chest pain type: chest pain due to myocardial ischemia Ischemic chest pain type: unstable angina pectoris Qualified Code(s): I20.0 - Unstable angina (2) CAD (coronary artery disease) Current Visit: Yes Status: Acute H/o CAD s/p STEMI and PCI in 2014. [facility] 2014 showed 30% stenosis LMCA, 50% stenosis LAD after D1 and 70% stenosis mLAD, 90% stenosis D1 (small vessel). 50% stenosis in the Mid Circumflex.80% stenosis in the 1st Marginal.95% stenosis in the Mid RCA s/p PCI with ERIC. TTE 01/11/15 showed EF 65-70%, no significant valvular disease. Asa, statin, bb. Smoking cessation discussed. Medication compliance stressed. Qualifiers: Coronary Disease-Associated Artery/Lesion type: [place] artery [place] vs. transplanted heart: [place] heart Associated angina: with unspecified angina Qualified Code(s): I25.119 - Atherosclerotic heart disease of [place] coronary artery with unspecified angina pectoris (3) Tobacco dependence Current Visit: Yes Status: Acute Smoking cessation counseling provided. Discussion w patient/family: The assessment and plan as outlined above was discussed with the patient and/or family members who expressed understanding and agreement. All questions were answered. Thank you for involving us in the care of your patient. Please call with any questions. The patient will be discussed and reviewed with Dr. Romero; changes to be made accordingly. Subjective Principal diagnosis: Chest pain--Abnormal stress Interval history: Seen and examined. Reports brief episode of fluttering in chest overnight--no significant event noted on telemetry. No chest pain or discomfort. Awaiting discussion with Dr. Thapa to determine timing of CABG. No issues with right groin cath site. Objective Vital Signs, Last 4 Hours Temp Pulse Resp BP Pulse Ox 10/06/17 06:50 97.7 F 66 18 153/83 99 General: Conversant, No Apparent Distress HEENT: Atraumatic, Normocephaly, Mucus Membranes Moist Cardiac: Reg Rate and Rhythm, Normal S1 and S2 Lungs: Normal Breath Sounds Neuro: Alert and responsive Abdomen: Soft Skin: No rashes noted on visualized skin Musculoskeletal: No Chest Wall Tenderness Extremities: No Edema, Normal Pulses Results 10/06/17 04:41 10/06/17 04:41 Lab Results 10/06/17 10/06/17 04:41 04:41 WBC 7.6 Hgb 14.7 Hct 42.7 Plt Count 205 Sodium 135 L Potassium 4.2 Chloride 101 Carbon Dioxide 31 H BUN 14 Creatinine 0.68 Glucose 221 H Calcium 8.9 Active Medications Acetaminophen (Tylenol) 650 mg PO Q6HR PRN PRN Reason: Pain Stop: 04/07/18 01:53 Last Admin: 10/06/17 03:45 Dose: 650 mg Aspirin (Aspirin) 81 mg PO DAILY NADIA Stop: 04/06/18 09:01 Last Admin: 10/06/17 07:59 Dose: 81 mg Atorvastatin Calcium (Lipitor) 40 mg PO HS NADIA Stop: 04/05/18 21:01 Last Admin: 10/05/17 21:29 Dose: 40 mg Dextrose/Water (Dextrose 50% (Syg)) 25 ml IVP AD PRN PRN Reason: Hypoglycemia Stop: 04/05/18 09:16 Glucagon (Glucagen) 1 mg IM ONCE PRN PRN Reason: Hypoglycemia Stop: 04/05/18 09:16 Glucose (Gluctose) 15 gm PO ONCE PRN PRN Reason: Hypoglycemia Stop: 04/05/18 09:16 Glucose (Gluctose) 30 gm PO ONCE PRN PRN Reason: Hypoglycemia Stop: 04/05/18 09:16 Heparin Sodium (Porcine) (Heparin) 5,000 unit SQ Q8HCO [facility] Stop: 04/06/18 22:01 Last Admin: 10/06/17 06:24 Dose: 5,000 unit Dextrose (Dextrose 5%) 1,000 mls @ 100 mls/hr IVC .Q10H PRN PRN Reason: HYPOGLYCEMIA Stop: 04/05/18 09:16 Insulin Detemir (Levemir) 5 unit SQ HS [facility] Stop: 04/07/18 21:01 Insulin Human Lispro (Humalog) 0 units SQ TIDAC [facility] PRN Reason: Protocol Stop: 04/06/18 16:31 Last Admin: 10/06/17 07:58 Dose: 2 unit Insulin Human Lispro (Humalog) 0 units SQ HS [facility] PRN Reason: Protocol Stop: 04/06/18 21:01 Last Admin: 10/05/17 21:29 Dose: Not Given Metoprolol Tartrate (Lopressor) 25 mg PO BID [facility] Stop: 04/05/18 14:16 Last Admin: 10/06/17 07:59 Dose: 25 mg Naloxone HCl (Narcan) 0.4 mg IVP Q2MIN PRN PRN Reason: SEE COMMENTS Stop: 04/05/18 08:49 - Imaging and Cardiology Stress Test: report reviewed Echo: report reviewed Cardiac cath: report reviewed Other Results: 12 hour tele: avg HR=65 SR. NO events noted. - EKG Interpretation EKG results cardiology: personally reviewed - VTE Documentation of Mechanical Device: Graduated compression elastic hosiery Consult Discharge Plan - Plan Referrals: NONE,PCP [Primary Care Provider] -
--- NOTE | 2017-10-06 11:27 | Cardiothoracic Progress Note ---
Date of Encounter: 10/06/17 Time of Encounter: 11:23 - Subjective Procedure(s) Performed: Patient seen and examined. Chart and laboratory vies reviewed. Seen by cardiology this morning and progress notes reviewed. Patient without complaints of any recurrent or new chest pain. She had an uneventful night. Troponins have all been negative indicating acute coronary syndrome without evidence of NH. Cardiac catheter demonstrates severe three-vessel coronary disease with likely in-stent occlusion of prior right coronary stent with left- to-right collaterals and well-preserved LV function. Echo was notable for mild to moderate MR otherwise normal. Patient has been on aspirin preoperatively and reportedly did not receive Plavix load during cardiac catheterization yesterday. Discussed plans for possible CABG this week. Patient will be seen by Dr. Frank Thapa tomorrow with tentative plans for surgery by Dr. Adam Sarmiento on Saturday (10/08/2017) depending on clinical course and assessment. Patient aware of tentative plan for surgery this week and is in agreement. Vital Signs, Last 4 Hours Temp Pulse Resp BP Pulse Ox 10/06/17 10:50 97.8 F 59 18 144/86 99 Weight 10/04/17 10/05/17 10/06/17 23:59 23:59 23:59 Weight 83.2 kg 83.8 kg - Physical Examination General: Other (Lying in bed, comfortable, awake, alert) - Labs 10/06/17 04:41 10/06/17 04:41 Lab Results, Last 24 hours 10/06/17 10/06/17 04:41 04:41 WBC 7.6 Hgb 14.7 Hct 42.7 Plt Count 205 Sodium 135 L Potassium 4.2 Chloride 101 Carbon Dioxide 31 H BUN 14 Creatinine 0.68 Glucose 221 H Calcium 8.9 - VTE Documentation of Mechanical Device: Graduated compression elastic hosiery Consult Discharge Plan - Plan Referrals: NONE,PCP [Primary Care Provider] -
[2017-10-06] MEDS ORDERED: Insulin DETEMIR 100 UNIT/ML X5UNITS SQ SCH (21:00)
[2017-10-07] MEDS ORDERED: *HR* Metoprolol 5 MG/5 ML VIAL IVP PRN (00:03)
[2017-10-07 04:18] LABS: BUN/Creatinine Ratio 22 (6-26); Blood Urea Nitrogen 13 mg/dL (6-20); Calcium 8.9 mg/dL (8.6-10.3); Carbon Dioxide 30 mEq/L (23-29); Chloride 102 mEq/L (98-107); Glucose 180 mg/dL (70-105); Osmolality,Calculated 287 (280-300); Potassium 4.1 mEq/L (3.5-5.1); Sodium 136 mEq/L (136-145); eGFR For Non-African Americans > 60 (> 60)
[2017-10-07] MEDS: *HR* Heparin 5,000 UNIT/ML VIAL SQ SCH (05:50)
--- NOTE | 2017-10-07 07:41 | Cardiothoracic Progress Note ---
Date of Encounter: 10/07/17 Time of Encounter: 07:39 - Assessment and plan (1) CAD (coronary artery disease) Current Visit: Yes Status: Acute The assessment and plan as outlined above was discussed with the patient and/or family members who expressed understanding and agreement. All questions were answered. We will schedule the patient for open heart surgery tomorrow. Operative consent was obtained. Risks of surgery include , stroke, bleeding, clots around the heart, myocardial infarction, acute renal or respiratory failure, acute or chronic graft closure, phrenic nerve injury and sternal dehiscence. The procedure, its risks, benefits and alternatives were explained and she does wish to proceed. We will schedule her for tomorrow with Dr. Sarmiento. She has no questions. Qualifiers: Coronary Disease-Associated Artery/Lesion type: [place] artery [place] vs. transplanted heart: [place] heart Associated angina: with unspecified angina Qualified Code(s): I25.119 - Atherosclerotic heart disease of [place] coronary artery with unspecified angina pectoris - Subjective Interval history: The patient has had no chest pain. Vital Signs, Last 4 Hours Temp Pulse Resp BP Pulse Ox 10/07/17 07:20 97.7 F 65 17 133/71 97 10/07/17 03:45 75 15 150/86 98 Clinical Data, last 8 Hours Output, Urine Amount 200 Lungs are clear to percussion and auscultation. Heart is in a normal sinus rhythm. - Labs 10/06/17 04:41 10/07/17 03:19 Lab Results, Last 24 hours 10/07/17 03:19 Sodium 136 Potassium 4.1 Chloride 102 Carbon Dioxide 30 H BUN 13 Creatinine 0.59 L Glucose 180 H Calcium 8.9 - VTE Documentation of Mechanical Device: Graduated compression elastic hosiery Consult Discharge Plan - Plan Referrals: NONE,PCP [Primary Care Provider] -
[2017-10-07] MEDS ORDERED: CeFAZolin Syr 2,000MG/20 ML 2,000 MG/20 ML SYRINGE IVPB ONE (07:42)
[2017-10-07] MEDS ORDERED: Aspirin 81 MG TAB.CHEW PO ONE (07:42)
[2017-10-07] MEDS: Insulin LISPRO 300 UNITS/3 ML VIAL SQ SCH ×4 (08:40→21:29)
[2017-10-07 08:42] LABS: Chol/HDL Ratio 4.4 (0-4.9)
[2017-10-07 09:00] LABS: Estimated Average Glucose 206 mg/dl; Hemoglobin A1C 8.8 %
[2017-10-07 09:00] LABS: INR 1.1
[2017-10-07] MEDS ORDERED: Chlorhexidine Rinse 15 ML MOUTHWASH MM SCH (09:00)
[2017-10-07] MEDS ORDERED: amLODIPine 5 MG TABLET PO SCH (09:00)
[2017-10-07 09:02] LABS: Activated Partial Thrombo Time 27.6 Seconds (26.0-36.0)
--- NOTE | 2017-10-07 09:25 | Anesthesia Evaluation PreOp ---
Date of Encounter: 10/08/17 Time of Encounter: 07:37 - Past History Planned Operation: CABG Cardiac History: [place] ( x2, first 2015 STEMI), Angina, HTN, Hyperlipidemia, Cardiac Stent (2015), Other (CAD) Pulmonary History: Smoker [employer] [place] History: Denies Any Significant HX Other Medical History: Diabetes Type II (non compliant with meds) Anesthesia History: No Prior Anesthetic Complications, Past Anesthesia ([place]) : No Alcohol Use: none Drug use: none Medications and Allergies Aspirin 81 mg PO DAILY #30 tab.chew 01/12/15 [Rx] 3 Allergy/AdvReac Type Severity Reaction Status Date / Time aluminum hydroxide AdvReac Chest Pain Verified 09/12/15 06:13 [From Maalox Advanced] bismuth subsalicylate AdvReac Chest Pain Verified 09/12/15 06:13 [From Pepto-Bismol] calcium carbonate AdvReac Chest Pain Verified 09/12/15 06:13 [From Maalox Advanced] magnesium AdvReac Chest Pain Verified 09/12/15 06:13 [From Maalox Advanced] simethicone AdvReac Chest Pain Verified 09/12/15 06:13 [From Maalox Advanced] - Meds/Allergy Pre-op Review Medications Reviewed: Yes Allergies Reviewed: Yes Beta Blockers on Current Med List: Yes If Beta Blockers taken, Date/Time (Last Dose taken): today 514 Anesthesia Results - Labs 10/08/17 04:17 10/08/17 04:17 - Imaging Additional studies: echo: Impressions: LVEF 60%. Moderate left ventricular diastolic dysfunction. Normal right ventricular structure and function. Mild-moderate mitral regurgitation. No pulmonary hypertension. IVC is dilated. cath: [facility] 10/05/17: severe 3v CAD--CABG evaluation recommended; 30% pLMCA, 60% pLAD, 70% mid and distal LAD, 90% 1st diagonal; 65% pLCx, 70% mLCx and 70% 1st OM; 100% mRCA with collaterals Anesthesia Exam Selected Entries 10/07/17 07:20 Temperature 97.7 F Pulse Rate 65 Respiratory Rate 17 Blood Pressure 133/71 O2 Sat by Pulse Oximetry 97 Oxygen Delivery Method Room Air Weight: 84kg - HEENT Pupil (Motor): EOMI Mallampati: III Teeth: Normal Oral Opening: Greater than 3 - [place] LOC: Oriented [place] Motor: Normal RUE, Normal LUE, Normal RLE, Normal LLE, Normal Face [place] Sensory: Normal: RUE, LUE, RLE, LLE, Face - Cardiac Rhythm: Regular Murmur: None - Pulmonary Breath Sounds: bilateral Clear Respiratory Effort: Symmetrical Anesthesia Assess/Plan ASA Score: 4 Modified [place] Scale for Level of Consciousness: Cooperative, oriented, and tranquil Anesthetic Plan: General Monitoring Plan: Standard Monitors, A-Line, PAC, GAYATHRI Recovery Plan: ICU (agrees to GA, lines, GAYATHRI and blood)
--- NOTE | 2017-10-07 09:54 | Cardiology Progress Note ---
Date of Encounter: 10/07/17 Time of Encounter: 09:20 Assessment and Plan (1) Chest pain Current Visit: Yes Status: Acute Patient presented with typical chest pain symptoms/anginal equivalent. Troponin negative x3. No acute ECG changes. Low level regadenoson 10/04/17: gated EF=60%, medium sized, moderate intensity reversible inferior and inferolateral defect suggestive of ischemia, visual and quantitative TID noted with ratio of 1.69. TTE 10/04/17: LVEF 60%, moderate LVDD, mild-moderate MR, normal wall motion [facility] 10/05/17: severe 3v CAD--CABG evaluation recommended; 30% pLMCA, 60% pLAD, 70 % mid and distal LAD, 90% 1st diagonal; 65% pLCx, 70% mLCx and 70% 1st OM; 100% mRCA with collaterals CT surgery consulted and following. Plan for CABG in AM with Dr. Sarmiento per patient report. Continue asa, statin, BB. NO chest pain overnight. No issues with right groin cath site. Blood pressure continues to be elevated, will start amlodipine today. Will continue to follow. Qualifiers: Chest pain type: chest pain due to myocardial ischemia Ischemic chest pain type: unstable angina pectoris Qualified Code(s): I20.0 - Unstable angina (2) CAD (coronary artery disease) Current Visit: Yes Status: Acute H/o CAD s/p STEMI and PCI in 2014. [facility] 2014 showed 30% stenosis LMCA, 50% stenosis LAD after D1 and 70% stenosis mLAD, 90% stenosis D1 (small vessel). 50% stenosis in the Mid Circumflex.80% stenosis in the 1st Marginal.95% stenosis in the Mid RCA s/p PCI with ERIC. TTE 01/11/15 showed EF 65-70%, no significant valvular disease. Asa, statin, bb. Smoking cessation discussed. Medication compliance stressed. Qualifiers: Coronary Disease-Associated Artery/Lesion type: [place] artery [place] vs. transplanted heart: [place] heart Associated angina: with unspecified angina Qualified Code(s): I25.119 - Atherosclerotic heart disease of [place] coronary artery with unspecified angina pectoris (3) Tobacco dependence Current Visit: Yes Status: Acute Smoking cessation counseling provided. Discussion w patient/family: The assessment and plan as outlined above was discussed with the patient and/or family members who expressed understanding and agreement. All questions were answered. Thank you for involving us in the care of your patient. Please call with any questions. The patient will be discussed and reviewed with Dr. Álvarez; changes to be made accordingly. Subjective Principal diagnosis: Chest pain--Abnormal stress Interval history: Seen and examined. Reports brief episode of fluttering, patient thinks may be due to anxiety. No chest pain or discomfort. Plan for CABG in AM with Dr. Sarmiento per pt. report. No issues with right groin cath site. Objective Vital Signs, Last 4 Hours Temp Pulse Resp BP Pulse Ox 10/07/17 07:20 97.7 F 65 17 133/71 97 General: Conversant, No Apparent Distress HEENT: Atraumatic, Normocephaly Cardiac: Reg Rate and Rhythm, Normal S1 and S2 Lungs: Normal Breath Sounds Neuro: Alert and responsive Abdomen: Soft Skin: No rashes noted on visualized skin Musculoskeletal: No Chest Wall Tenderness Extremities: No Edema, Normal Pulses Results 10/06/17 04:41 10/07/17 03:19 Lab Results 10/07/17 10/07/17 03:19 08:45 INR 1.1 APTT 27.6 Sodium 136 Potassium 4.1 Chloride 102 Carbon Dioxide 30 H BUN 13 Creatinine 0.59 L Glucose 180 H Calcium 8.9 Active Medications Acetaminophen (Tylenol) 650 mg PO Q6HR PRN PRN Reason: Pain Stop: 04/07/18 01:53 Last Admin: 10/06/17 03:45 Dose: 650 mg Amlodipine Besylate (Norvasc) 5 mg PO DAILY [facility] PRN Reason: Protocol Stop: 04/08/18 09:01 Aspirin (Aspirin) 81 mg PO DAILY NADIA Stop: 04/06/18 09:01 Last Admin: 10/06/17 07:59 Dose: 81 mg Atorvastatin Calcium (Lipitor) 40 mg PO HS NADIA Stop: 04/05/18 21:01 Last Admin: 10/06/17 21:31 Dose: 40 mg Chlorhexidine Gluconate (Chlorhexidine Rinse) 15 ml MM BID NADIA Stop: 10/07/17 21:01 Dextrose/Water (Dextrose 50% (Syg)) 25 ml IVP AD PRN PRN Reason: Hypoglycemia Stop: 04/05/18 09:16 Glucagon (Glucagen) 1 mg IM ONCE PRN PRN Reason: Hypoglycemia Stop: 04/05/18 09:16 Glucose (Gluctose) 15 gm PO ONCE PRN PRN Reason: Hypoglycemia Stop: 04/05/18 09:16 Glucose (Gluctose) 30 gm PO ONCE PRN PRN Reason: Hypoglycemia Stop: 04/05/18 09:16 Dextrose (Dextrose 5%) 1,000 mls @ 100 mls/hr IVC .Q10H PRN PRN Reason: HYPOGLYCEMIA Stop: 04/05/18 09:16 Insulin Detemir (Levemir) 5 unit SQ HS [facility] Stop: 04/07/18 21:01 Last Admin: 10/06/17 21:31 Dose: 5 unit Insulin Human Lispro (Humalog) 0 units SQ TIDAC [facility] PRN Reason: Protocol Stop: 04/06/18 16:31 Last Admin: 10/07/17 08:40 Dose: 4 unit Insulin Human Lispro (Humalog) 0 units SQ HS [facility] PRN Reason: Protocol Stop: 04/06/18 21:01 Last Admin: 10/06/17 21:30 Dose: Not Given Metoprolol Tartrate (Lopressor) 25 mg PO BID [facility] Stop: 04/05/18 14:16 Last Admin: 10/07/17 08:38 Dose: 25 mg Metoprolol Tartrate (Lopressor) 5 mg IVP Q6HR PRN PRN Reason: HR >100; SBP >160 / DBP >90 Stop: 04/08/18 00:04 Naloxone HCl (Narcan) 0.4 mg IVP Q2MIN PRN PRN Reason: SEE COMMENTS Stop: 04/05/18 08:49 - Imaging and Cardiology Stress Test: report reviewed Echo: report reviewed Cardiac cath: report reviewed Other Results: 12 hour tele: avg HR=65. No events reported. - EKG Interpretation EKG results cardiology: personally reviewed - VTE Documentation of Mechanical Device: Graduated compression elastic hosiery Consult Discharge Plan - Plan Referrals: NONE,PCP [Primary Care Provider] -
--- NOTE | 2017-10-07 10:28 | Internal Med Progress Note ---
Hospitalist Progress Note - Encounter Date of Encounter: 10/07/17 Time of Encounter: 10:30 - Subjective Interval History: Patient seen and examined at bedside. Patient had no acute overnight events. Patient denies any complaints currently. Patient denies any chest pain, shortness breath, nausea, vomiting, diarrhea. Patient's afebrile. Patient states Dr. Thapa evaluated her today and told her that she is having her bypass tomorrow. - Exam Vitals: Temp Pulse Resp BP Pulse Ox 97.7 F 65 17 133/71 97 10/07/17 07:20 10/07/17 07:20 10/07/17 07:20 10/07/17 07:20 10/07/17 07:20 Exam: Constitutional: No acute distress, Alert Psych: AAO x 3 HEENT: NCAT, EOMI Neck: supple, no JVD Cardio: regular rate and rhythm, +s1s2, no murmurs/rubs/gallops Resp: clear to ascultation bilaterally, no wheezes/rales/ronchi Abd: soft, non tender/non distended, positive bowel sounds, no gaurding/reboud/ ridgitity Extremities: no clubbing/cyanosis/edema appreciated - Assessment and Plan (1) Anginal equivalent Current Visit: Yes Status: Acute Assessment and Plan: Patient with history of coronary artery disease with STEMI status post PCI of the RCA in 2014; patient very noncompliant post PCI and has been off medications for 2 years -Multi vessel CAD not amenable to PCI -Status post left heart catheterization which demonstrated severe three-vessel coronary disease including an occluded RCA which was stented in 2014 with left- to-right collaterals (see cardiology and cardiothoracic notes for further details) -Cardiothoracic and cardiology following the patient -Patient to have coronary artery bypass scheduled for tomorrow -Monitor telemetry -Monitor right groin status post left heart catheter -Continue aspirin, beta bessie, statin -EF 60% -Counseled extensively regarding medical compliance (2) Hypertension Current Visit: Yes Status: Chronic Assessment and Plan: Continue beta bessie; may need up titration her heart rate in the low 60s; stable for now -Monitor blood pressure (3) Diabetes mellitus Current Visit: Yes Status: Chronic Assessment and Plan: Last A1c in 2014 was 7.5. Not taking any medicine at home continue moderate dose sliding scale coverage A1c is 8.8 currently Likely needs metformin discharge +/- second agent Increase Lantus to 10 mg daily at bedtime follow accuchecks (4) Nonadherence to medication Current Visit: Yes Status: Inactive Assessment and Plan: Counseled extensively on importance of medical compliance (5) Tobacco dependence Current Visit: Yes Status: Acute Assessment and Plan: Counseled regarding smoking cessation - Time Spent with Patient Total time spent is greater than 50% in coordination of care (as documented) at patient's floor/unit and/or counseling patient: less than 15 minutes Plan of Care Discussed with: patient Internal Medicine: Result - Labs CBC & Chem 7: 10/06/17 04:41 10/07/17 03:19 Labs: BMP 10/07/17 03:19 Sodium 136 Potassium 4.1 Chloride 102 Carbon Dioxide 30 H BUN 13 Creatinine 0.59 L Glucose 180 H Calcium 8.9 - ABG Interpretation ABG results: PT/INR, D-dimer PT 12.0 Seconds (9.4-12.1) 10/07/17 08:45 D-Dimer 317 ng/mLFEU (0-500) 10/04/17 01:28 - VTE Documentation of Mechanical Device: Graduated compression elastic hosiery Consult Discharge Plan - Plan Referrals: NONE,PCP [Primary Care Provider] - (2) Hypertension Qualifiers: Hypertension type: unspecified Qualified Code(s): I10 - Essential (primary) hypertension (3) Diabetes mellitus Qualifiers: Diabetes mellitus type: type 2 Diabetes mellitus complication status: with neurologic complications Diabetes mellitus complication detail: with unspecified neuropathy Qualified Code(s): E11.40 - Type 2 diabetes mellitus with diabetic neuropathy, unspecified
[2017-10-07] MEDS: Aspirin 81 MG TAB.CHEW PO SCH (12:10)
--- NOTE | 2017-10-07 13:42 | Invasive Diagnostic Lab Proc ---
Name: Snehal Adame Date of Study: 10/05/2017 Date: 1970 Ht: 66.1in Medical Record#: [id number] Age: 46 Wt: 182.98lb Gender: Female BSA: 1.93 Order #: [id number] BMI: 29.41 Physicians Procedure Physician: Guanaco Toussaint MD Referring MD: Referring MD: Staff Name Position Time In NancyJoana olivo RN Monitor 09:59 AM Evita Hinojosa RN Iuss Master Analyst 10:00 AM Salma Valencia RT (R) Scrub 10:00 AM Indications Indication Abnormal Test - Stress Procedures Performed Procedure L HRT ARTERY/VENTRICLE ANGIO Pre-Procedure Checklist Informed consent is complete signed and on chart. H&P is on chart. ID band is on and ID verified with patient. Patient NPO for procedure The procedure was described for the patient and questions were answered. ECG is on chart. Plan of Care Patient will tolerate the procedure without complications. Adequate level of comfort will be maintained. Hemodynamics will remain stable Patient will recover from procedure without complications. Respiratory function will be maintained. Cardiac rhythm will remain stable. Patient temperature will be maintained. Patient and/or family have verbalized understanding of the procedure. Patient Education Chief Complaint/Reason for Test: Cardiac Cath Developmental Category: Adult (18-64 years) Developmentally Appropriate for Age: Yes Learning Barriers: None Education Needs: Procedure Education Method: Verbal Information Taught: Cardiac Cath Educational Evaluation: Able to repeat information Intravenous Access Time IV Size Location DC'd Fluid/Drip Rate Units RN 0.9NaCl 25 ml/hr Allergies calcium carbonate aluminum hydroxide simethicone bismuth subsalicylate magnesium MAALOX, PEPTO BISMOL Vital Signs Time BP (mmHg) HR (bpm) O2 Sat. RR (bpm) LOC 10:22 AM / % 5 = Fully awake and oriented or at pre-proc level 10:36 AM / % 4 = Oriented but drowsy 10:36 AM / % 4 = Oriented but drowsy 10:29 AM 152 / 95 72 100 % 21 10:34 AM 141 / 81 67 100 % 13 10:39 AM 130 / 82 72 100 % 17 10:44 AM 158 / 88 68 100 % 16 10:49 AM 151 / 88 71 100 % 21 10:54 AM 161 / 95 85 100 % 16 10:59 AM 161 / 97 79 100 % 12 10:51 AM / % 4 = Oriented but drowsy Procedural Medications Time Medication Dose Units Method Given By 10:24 AM Oxygen 2 L/min nasal cannula Evita Hinojosa RN 10:30 AM Versed 1 mg Intravenous Evita Hinojosa RN 10:30 AM Fentanyl 50 mcg Intravenous Evita Hinojosa RN 10:40 AM Lidocaine 2% 20 ml Subcutaneous Guanaco Toussaint MD ASA Classification: CLASS II- Mild systemic disease (i.e. well-controlled diabetes, hypertension, asthma, cigarette smoking) Alize Score Preprocedure Postprocedure Activity 2- Moves 4 extremities sustained head lift Activity 2- Moves 4 extremities sustained head lift Circulation 2- SBP +/= 20 points of pre-anesthetic level Circulation 2- SBP +/= 20 points of pre-anesthetic level Consciousness 2- Awake and alert oriented x 3 Consciousness 2- Awake and alert oriented x 3 O2 Saturation 2- Able to maintain O2 satruation of 92% on room air O2 Saturation 2- Able to maintain O2 satruation of 92% on room air Respiratory 2- Able to deep breathe and cough well Respiratory 2- Able to deep breathe and cough well Total Score 10 Total Score 10 Contrast Agent: Isovue Diagnostic Contrast: 70 ml Total Contrast: 70 ml Fluoro Dose: 4000 mGy Procedure Log Time Note Enter By 09:50 AM CathStat 10:00 AM Joana Serna RN Position: Monitor Time in: 09:59 [facility] 10:00 AM Evita Hinojosa RN Position: Iuss Master Analyst [facility]: 10:00 [facility] Salma Valencia RT (R) Position: Scrub Time in: 10:00 [facility] AM Patient charges- Angio tray pack, Navilyst 3mm J, Pulse Oximetry and ACIST tubing and transducer [facility] 10:20 AM Pt arrived to laboratory administrative director 2 at 10:19 [facility] 10:20 AM Physician arrived 10:20 [facility] 10: AM Time: Patient comfortable and pain free: Yes [facility] 10:22 AM Time: :LOC: 5 = Fully awake and oriented or at pre-proc level [facility] 10:23 AM Micha and trupti completed [facility] 10:23 AM Sign in performed according to hospital policy. [facility] 10:23 AM Procedure start 10:23 [facility] 10:23 AM Case Start 10:23 AM Hair removed from procedure site in procedure lab using clippers. Bilateral groin prepped with Chloraprep by Joaan Serna RN, then patient was draped. [facility] AM Time: 10:24 Oxygen on at 2 L/min per nasal cannula by Evita Hinojosa RN 10:28 AM Vitals capture started with the following parameters, Patient=Adult, Interval=5 min, Initial Dggmdbaw=766 mmHg, Deflation Rate=5 mmHg, Cuff placed on Right Arm 10:29 AM HR=72 bpm, VTXN=281/95 mmhg, WpC6=476.0 %, Resp=21 B/min, Comment=nsr 10:30 AM Time: 10:30 Versed 1 mg Intravenous Given by Evita Hinojosa RN 10:30 AM Time: 10:30 Fentanyl 50 mcg Intravenous Given by Evita Hinojosa RN 10:30 AM Recorded ECG: HR=64 Condition=Condition 1 10:32 AM Pressure channel 1 zero failed. 10:32 AM Pressure channel 1 zeroed. 10:34 AM HR=67 bpm, MOHW=712/81 mmhg, YbH9=189.0 %, Resp=13 B/min, Comment=nsr 10:36 AM Time: 10:36 Patient comfortable and pain free: Yes [facility] AM Time: 10:36LOC: 4 = Oriented but drowsy [facility] 10:39 AM HR=72 bpm, QQEP=274/82 mmhg, GxA1=037.0 %, Resp=17 B/min, Comment=nsr 10:39 AM ASA Class CLASS II- Mild systemic disease (i.e. well-controlled diabetes, hypertension, asthma, cigarette smoking) [facility] 10:39 AM Time out performed according to hospital policy [facility]40 AM Pressure channel 1 zeroed. 10:40 AM Time: 10:40 20 ml Lidocaine 2% to right groin Subcutaneous Given by MD clau Morrissey 10:40 AM Micro-Introducer Kit utilized for sheath placement tsconstantino 10:43 AM 3cc contrast to visualize placement tsconstantino 10:44 AM HR=68 bpm, FYWB=290/88 mmhg, OoL4=178.0 %, Resp=16 B/min, Comment=nsr 10:44 AM Access obtained by percutaneous puncture. 6Fr 10cm Terumo Assumption sheath placed in right Femoral artery. [id number] tsoummers 10:45 AM 0.035 145cm Navilyst 3mmJ wire [id number] tsoummers 10:45 AM 5Fr FR 4 catheter inserted over the wire DNC tsoummers 10:45 AM wire removed tsoummers 10:47 AM Catheter removed tsoummers 10:48 AM 5Fr FL 4 catheter inserted over the wire [facility] tsoummers 10:48 AM LCA angiography performed in multiple views. tsoummers 10:48 AM Recorded Pressure: Ao, HR=70, Condition=Condition 1 (Aorta) Ao 117/67/87 10:49 AM HR=71 bpm, XNXB=750/88 mmhg, XuA8=132.0 %, Resp=21 B/min, Comment=nsr 10:51 AM Time: 10:36LOC: 4 = Oriented but drowsy tsoummers 10:51 AM Time: 10:36 Patient comfortable and pain free: Yes tsoummers 10:52 AM Catheter removed tsoummers 10:52 AM 5Fr Pigtail catheter inserted over the wire [facility] tsoummers 10:52 AM Catheter selectively placed in left ventricle tsoummers 10:52 AM Recorded Pressure: LV, HR=88, Condition=Condition 1 (Left Ventricle) LV 169/-12/13 10:52 AM Bolus angiogram of left Ventricle complete: 10 ml/sec for a total of 20 mls tsoummers 10:53 AM Recorded Pressure: LV, Ao, HR=86, Condition=Condition 1 (Left Ventricle) LV 178/14/21, (Aorta) Ao 172/93/127 10:53 AM Catheter removed tsoummers 10:54 AM HR=85 bpm, QNIX=643/95 mmhg, SnW0=793.0 %, Resp=16 B/min, Comment=nsr 10:56 AM Coronary Dominance: right tsoummers 10:56 AM 5Fr SRC catheter inserted over the wire [id number] tsoummers 10:57 AM RCA angiography performed in multiple views. tsoummers 10:57 AM Recorded Pressure: Ao, HR=80, Condition=Condition 1 (Aorta) Ao 156/80/112 10:58 AM [facility] 10:58 AM Procedure completed at 10:58 10/05/2017 tsoummers 10:58 AM Did you address LASHAWN flow and Dominance? Yes tsoummers 10:59 AM HR=79 bpm, HJLP=413/97 mmhg, JuP0=388.0 %, Resp=12 B/min, Comment=nsr 10:59 AM Sign out completed: Radiation Dose 409.01 mGy, 3999.83 cGy/cm2 Fluoro Time: 2.8 Isovue 370 - 200ml contrast 70 ml given by Guanaco Toussaint MD. Complications: NoneCardiac Rehab Consult needed: YesConfirmed administered medications: Yes tsmmers 10:59 AM Isovue 370 - 200ml,1 Bottle(s) used. [facility] 10:59 AM Arterial sheath pulled using manual compression and for 15 minutes by Helga Toussaint MD [facility] 11:00 AM Estimated Blood Loss: minimal tsoummers 11:00 AM Post ECG NSR tsoummers 11:00 AM Post Blood Pressure 161/97 [facility] 11:00 AM Information taught [facility]iac Cath [facility] 11:00 AM Education needs Procedure, Plan of Care, and Responsibilities of Patient in Care [facility] 11:00 AM Learning barriers :None [facility] 11:00 AM Education Methods Verbal [facility] 11:00 AM Education evaluation Able to repeat information [facility] 11:00 AM Plavix, Effient or Brilinta given No tsoummpallavi 11:00 AM Delay to floor No tsoummers 11:00 AM Complications: None tsoummers 11:00 AM no family present at this time tsoummers 11:01 AM Conversation between Interventionalist and CT Surgeon. tsoummpallavi 11:06 AM tsoummpall[facility] 11:06 AM tsoummers 11:06 AM Time: 10:51LOC: 4 = Oriented but drowsy tsoummpallavi 11:[address] surgeon migration specialist for Dr. Elier olguin 11:11 AM Lesion found in Mid RCA. Pre Stenosis: 100 Pre LASHAWN Flow: 0: No Flow/No perfusion tsoummers 11:11 AM Lesion found in Proximal LMCA. Pre Stenosis: 30 Pre LASHAWN Flow: tsoummers 11:12 AM Lesion found in Proximal LAD. Pre Stenosis: 60 Pre LASHAWN Flow: tsoummers 11:12 AM Lesion found in Mid LAD. Pre Stenosis: 70 Pre LASHAWN Flow: tsoummers 11:12 AM Lesion found in Distal LAD. Pre Stenosis: 70 Pre LASHAWN Flow: tsoummers 11:12 AM Lesion found in 1st Diagonal. Pre Stenosis: 90 Pre LASHAWN Flow: tsoummers 11:12 AM Lesion found in Proximal Circumflex. Pre Stenosis: 65 Pre LASHAWN Flow: tsoummers 11:12 AM Lesion found in Mid Circumflex. Pre Stenosis: 70 Pre LASHAWN Flow: tsoummers 11:12 AM Lesion found in 1st Marginal. Pre Stenosis: 70 Pre LASHAWN Flow: tsoummers 11:12 AM Left Main Coronary Artery with 30% stenosis tsoummers 11:13 AM Proximal Left Anterior Descending Coronary Artery with 60% stenosis. If graft is supplying this territory, 0 % stenosis. tsoummers 11:13 AM Mid/Distal Left Anterior Descending Coronary Artery and diagonal branches with 90% stenosis. If graft is supplying this area, 0 % stenosis tsoummers 11:13 AM Circumflex, Obtuse Marginal, Left Posterior Descending, and Left Posterolateral Coronary Arteries with 70 % stenosis. If graft is supplying this area, 0 % stenosis tsoummers 11:13 AM Right Coronary, Right Posterior Descending Arteries with Right Posterolateral and Acute Marginal branches with 100 % stenosis. If graft is supplying this area, 0 % stenosis tsoummers 11:16 AM Site status No bleeding/hematoma - Rt Groin as reported by Salma Valencia RT (R) at 11:16 tsoummers 11:16 AM Opsite applied tsoummers 11:16 AM Patient out of room: 11:16 tsoummers 11:16 AM Report given to Jonathan ZAYAS [facility]23. 11:16 tsoummers Complications Complication None Hemodynamics Pressures Site Systolic/A Wave Diastolic/V Wave Mean AO 117 67 87 LV 169 -12 13 LV 178 14 21 AO 172 93 127 AO 156 80 112 Post Procedure Information Blood Pressure: 161/97 mmHg Rhythm: NSR Post procedural instructions were not given Site Checks Time Location Status Staff Sheath In? Note 11:16 AM Rt Groin No bleeding/hematoma Salma Valencia RT (R) Pulses Time Site Pre-Procedure Post-Procedure Note Bilateral DP & PT 2+ Updated by Joana Serna RN on 10/07/2017 1:32:59 PM electronically signed on 10/07/2017 1:33:26 PM with status of Final
--- NOTE | 2017-10-07 17:31 | Electrocardiograph Report ---
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
--- NOTE | 2017-10-07 17:42 | Electrocardiograph Report ---
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
[2017-10-07] MEDS ORDERED: Insulin DETEMIR 100 UNIT/ML X5UNITS SQ SCH (21:00)
[2017-10-07] MEDS: Chlorhexidine Rinse 15 ML MOUTHWASH MM SCH (21:28)
[2017-10-07] MEDS: Acetaminophen 325 MG TABLET PO PRN (21:34)
[2017-10-08 04:48] LABS: Basophils % 0.4 %; Eosinophils # 0.2 K/mcL (0.0-0.6); Eosinophils % 2.5 %; Hemoglobin 16.2 g/dL (11.5-15.4); Immature Granulocytes % 0.2 % (0-4); Lymphocytes % 24.5 %; Mean Corpuscular HGB Conc 35.2 g/dL (31.6-35.5); Mean Corpuscular Hemoglobin 30.3 pg (28.0-33.3); Mean Corpuscular Volume 86.1 fL (83.0-100.0); Mean Platelet Volume 10.2 fL (9.4-12.4); Monocytes # 0.6 K/mcL (0.0-1.3); Neutrophils # 5.3 K/mcL (1.6-8.9); Platelet Count 240 K/mcL (140-400); Red Blood Count 5.34 M/mcL (3.82-4.97); Red Cell Distribution Width 11.9 % (11.5-14.5); Segmented Neutrophils % 65.4 %
[2017-10-08 05:09] LABS: BUN/Creatinine Ratio 26 (6-26); Blood Urea Nitrogen 15 mg/dL (6-20); Calcium 9.1 mg/dL (8.6-10.3); Carbon Dioxide 26 mEq/L (23-29); Chloride 105 mEq/L (98-107); Glucose 139 mg/dL (70-105); Osmolality,Calculated 283 (280-300); Potassium 3.8 mEq/L (3.5-5.1); Sodium 135 mEq/L (136-145); eGFR For Non-African Americans > 60 (> 60)
[2017-10-08] MEDS: Chlorhexidine Rinse 15 ML MOUTHWASH MM SCH ×2 (05:16→23:57)
[2017-10-08] MEDS ORDERED: CeFAZolin Syr 2,000MG/20 ML 2,000 MG/20 ML SYRINGE IVPB ONE (06:00)
[2017-10-08] MEDS ORDERED: Aspirin 81 MG TAB.CHEW PO ONE (06:00)
[2017-10-08] MEDS ORDERED: Nitroglycerin 25 MG/250 ML INFUS..BTL IVC ONE (06:58)
[2017-10-08] MEDS ORDERED: NiCARdipine 2.5 MG/10 ML Syringe IVPB ONE (06:59)
[2017-10-08] MEDS ORDERED: *HR* PHENYLEPHRINE 1,000 MCG/10 ML SYRINGE IVP ONE ×2 (07:00→11:15)
[2017-10-08] MEDS ORDERED: *HR* Rocuronium Bromide 50 MG/5 ML VIAL ONE ×2 (07:00→10:42)
[2017-10-08] MEDS ORDERED: *HR* Etomidate 20 MG/10 ML AMPUL IVP ONE (07:00)
[2017-10-08] MEDS ORDERED: Famotidine 20 MG/2 ML VIAL ONE (07:00)
[2017-10-08] MEDS ORDERED: Protamine Sulfate 250 MG/25 ML VIAL IVP ONE (07:01)
[2017-10-08] MEDS ORDERED: Tranexamic Acid 1,000 MG/10 ML VIAL ONE ×2 (07:01→09:04)
[2017-10-08] MEDS ORDERED: *HR* Midazolam HCl 5 MG/5 ML VIAL IVP ONE (07:06)
[2017-10-08] MEDS ORDERED: *HR* FentaNYL (PF) 1,000 MCG/20 ML VIAL ONE (07:06)
[2017-10-08] MEDS ORDERED: Heparin 15,000 UNIT in 0.9 % Sodium Chloride 500 ML IV ONE (07:45)
[2017-10-08] MEDS ORDERED: Dextrose 50 % in Water (Vial) 30 ML, Sodium Bicarbonate 20 MEQ, Potassium Chloride 15 M... TH ONE (07:45)
[2017-10-08] MEDS ORDERED: Norepinephrine 4 MG in D5% in Water 250 ML IVC PRN (07:45)
[2017-10-08] MEDS ORDERED: Dextrose 50 % in Water (Vial) 30 ML, Sodium Bicarbonate 20 MEQ, Lidocaine 1% 5 ML, Insu... TH ONE ×3 (07:45)
[2017-10-08] MEDS ORDERED: Insulin Human Regular 100 UNIT in 0.9 % Sodium Chloride 100 ML IV PRN (07:45)
[2017-10-08 08:19] LABS: ABG Base Excess -4 mEq/L (-2 to 3); ABG Chloride 105 mEq/L (98-107); ABG Glucose 183 mg/dL (60-95); ABG HCO3 19 mEq/L (21-27); ABG Ionized Calcium 1.11 mmol/L (1.15-1.35); ABG Oxygen Saturation 100 % (95-98); ABG PCO2 28 mmHg (35-45); ABG PH 7.44 pH Units (7.32-7.45); ABG PO2 255 mmHg (85-104); ABG TCO2 20 mEq/L (20-26)
[2017-10-08] MEDS ORDERED: *HR* Magnesium Sulfate 2 GM/50 ML PIGGYBACK IVPB ONE (08:28)
[2017-10-08] MEDS ORDERED: Mannitol 25% vial 12.5 GM/50 ML VIAL IVP ONE (08:28)
[2017-10-08] MEDS ORDERED: *HR* Phenylephrine 10 MG/ML VIAL IVC ONE (08:28)
[2017-10-08] MEDS ORDERED: Tranexamic Acid 1,000 MG/10 ML VIAL IVPB ONE (08:28)
[2017-10-08] MEDS ORDERED: Lidocaine 2% Syringe 100 MG/5 ML IV ONE (08:28)
[2017-10-08] MEDS ORDERED: Albumin Human 25% 25 GM/100 ML IV.SOLN IV ONE (08:28)
[2017-10-08] MEDS ORDERED: Sodium Bicarbonate 50 MEQ/50 ML VIAL IVC ONE (08:28)
[2017-10-08] MEDS ORDERED: *HR* Heparin 10,000 UNIT/10 ML VIAL IV ONE (08:28)
--- NOTE | 2017-10-08 08:42 | Anesthesia Procedures ---
Date of Encounter: 10/08/17 Time of Encounter: 07:50 Procedures: Anesthesia - Arterial Line Consent obtained: written consent Time out performed: Yes Sedation: Versed (mg): 2 Sedation: Fentanyl (mcg): 100 Supplemental Oxygen via Nasal Cannula (L/min): 2 Local Anesthetic: Lidocaine 1% Amount of Anesthetic used (mls): 1 Size (Gauge): 20 Length (inches): 5 Technique Used: sterile prep, guide wire technique, direct puncture technique Post-Procedure: line taped into place, dry sterile dressing placed Patient tolerated procedure: well, no complications Complications: none Site: Radial L - Central Line Placement Right IJ Consent obtained: written consent Time out performed: Yes Patient placed on monitor/pulse ox: Yes prep: mask, gown, gloves Central line prep: Chlorhexidine scrub Ultrasound used for placement: Yes Technique: Seldinger Lumen Inserted: Introducer Post procedure: sutured in place, good blood return, all ports aspirated, flushed, capped, sterile dressing applied Patient tolerated procedure: well (introducer placed without issue, swan wedge at approx 50cm, no arrythmias with placement), no complications (introducer placed wit)
[2017-10-08] MEDS ORDERED: Albumin Human 5% 25.0 GM/500 ML VIAL ONE (09:05)
[2017-10-08 09:54] LABS: ABG Base Excess 3 mEq/L (-2 to 3); ABG Chloride 98 mEq/L (98-107); ABG Glucose 249 mg/dL (60-95); ABG HCO3 27 mEq/L (21-27); ABG Ionized Calcium 0.83 mmol/L (1.15-1.35); ABG Oxygen Saturation 100 % (95-98); ABG PCO2 40 mmHg (35-45); ABG PH 7.44 pH Units (7.32-7.45); ABG PO2 470 mmHg (85-104); ABG TCO2 28 mEq/L (20-26)
[2017-10-08 10:42] LABS: ABG Base Excess 3 mEq/L (-2 to 3); ABG Chloride 98 mEq/L (98-107); ABG Glucose 209 mg/dL (60-95); ABG HCO3 28 mEq/L (21-27); ABG Ionized Calcium 0.99 mmol/L (1.15-1.35); ABG Oxygen Saturation 100 % (95-98); ABG PCO2 43 mmHg (35-45); ABG PH 7.41 pH Units (7.32-7.45); ABG PO2 443 mmHg (85-104); ABG TCO2 29 mEq/L (20-26)
--- NOTE | 2017-10-08 11:46 | Operative Note ---
Date of procedure: 10/08/17 Pre-op diagnosis: CAD Post-op diagnosis: same Procedure: 1. CABG 4 (CERDA to LAD, sequential SVG to D1 then OM1, SVG to PDA). 2. Endoscopic vein harvesting, greater saphenous vein from right lower extremity. Implants: None. Complications: None. Anesthesia: HOLLY Surgeon: Joseluis Sarmiento Was there an clinical services assistant present: Yes Skein Winding Operator: Dawson Castro Estimated blood loss (cc): 500 Specimen: None. Condition: stable Disposition: ICU Procedure in Detail: INDICATIONS FOR OPERATION: The patient is a 46-year-old type II diabetic, hypertensive, moderately obese lady with hypercholesterolemia, a strong family history of CAD, and tobacco abuse. She states that she developed substernal chest pain radiating to her jaw and down her left arm on 10/04/2017. She was evaluated at [facility] emergency department and found to have no troponin I level elevation. Given her previous cardiac history, her presenting symptoms, and her cardiac risk profile, she was admitted for further cardiac workup. The patient underwent cardiac catheterization on 10/05/2017 was found to have severe 3 vessel CAD and an LVEF 60%. In particular, the patient had a 30% proximal left main lesion, a 60% proximal LAD lesion, a 70% mid LAD lesion, a 70 % distal LAD lesion, a 90% proximal D1 lesion, a 60-70% proximal LCx lesion, a 70% mid LCx lesion, a 70% proximal OM1 lesion, and a completely occluded mid RCA which fills distally via [id number]-fu-zqpee collaterals. She was recommended for urgent CABG. FINDINGS AT OPERATION: The the aorta was of normal caliber without calcification. The coronary arteries measure proximal 1.5-2 mm in diameter and had mild to moderate distal disease, particularly the LAD. The greater saphenous vein was harvested endoscopically from the right lower extremity from the mid calf to the groin and was of good quality. The total bypass time was 75 minutes, cross-clamp time 48 minutes, temperature 35.1 degrees centigrade. DESCRIPTION OF OPERATION: After obtaining informed operative consent from the patient, she was taken to the operative room where a satisfactory general endotracheal anesthetic was induced. Appropriate monitor lines were placed, and the patient's chest, abdomen, and lower extremities were prepped and draped in a sterile fashion. The greater saphenous vein was harvested endoscopically from the right lower extremity from the mid calf to the groin. The vein was removed, distended, and found quality. The simultaneous tissue and skin edges were reapproximated running Vicryl sutures. Simultaneously, a standard median sternotomy incision was made and the sternum divided. The CERDA was taken down from its bed and side branches divided between hemoclips. The sternum was and the pericardium was opened and reflected laterally. The patient was prepared for cannulation by placing purse string sutures the distal ascending aorta, mid-ascending aorta, and right atrial appendage. The patient was heparinized and when the ACT was greater than 200 seconds, the distal ascending aorta was cannulated followed by placement of a dual stage venous cannula through the right atrial appendage and into the inferior vena cava. A stab-in antegrade metabolic and is placed in the mid-ascending aorta. The patient was placed on bypass and the temperature allowed to drift to 35.1 degrees centigrade. The distal targets were identified and the aorta was crossclamped. The patient received 700 mL of cold antegrade crystalloid cardioplegia through the aortic root and the patient's heart obtained rapid diastolic arrest. The OM1 branch was opened be blade and the vein was anastomosed in end-to-side fashion using running 7-0 Prolene suture. The anastomosis found to be hemostatic. The D1 branch was then opened be blade and the vein was opened longitudinal fashion so the [id number]-crup anastomosis could be completed using running 7-0 Prolene suture. The anastomosis was found to be hemostatic and the patient received a final dose of cold antegrade crystalloid cardioplegia through the aortic root. The PDA was opened be blade and the vein was anastomosed in an end-to-side fashion using running 7-0 Prolene suture. The anastomosis found to be hemostatic. Finally the LAD was opened be blade and the CERDA was anastomosed in end-to-side fashion to the LAD using a running 7-0 Prolene suture. The anastomosis found to be hemostatic and the mammary pedicle was tacked to the epicardium using interrupted 5-0 silk suture. Rewarming was begun during this anastomosis. Aortic cross-clamp was released and the heart distended. The veins were measured and cut appropriate lengths. A partial occluding clamps placed across the mid ascending aorta and the antegrade cardioplegia cannula was removed. An additional aortotomy site was made 11 blade and both sites were enlarged with 4 mm punch. The veins were anastomosed in end-to-side fashion to the aorta using a running 5-0 Prolene suture. The vein grafts were occluded with bulldog clamps and de-aired the 25-gauge needle prior to removing the partial occluding clamp. The proximal and distal anastomoses were found to be hemostatic and the proximal anastomoses were marked with radiopaque loops. Two right ventricular temporary epicardial pacing lesion placed, and 3 chest suture placed, 2 in the mediastinum one in the left pleural space. During rewarming the patient's heart regained normal sinus rhythm spontaneously. When the patient's systemic temperature reached 36 degrees centigrade, she was ventilated and received volume. She was weaned from bypass required noted to proximal port. Protamine was administered and the aortic and venous cannulae were removed. The pursestring sutures were secured. The venous cannulation site was reinforced with a running 4-0 Prolene suture. The pericardium was loosely approximated in midline using interrupted 0 silk suture and the sternum was reapproximated sternal wires. The pectoralis major fascia, rectus abdominis fascia, subcutaneous tissue, and skin edges were reapproximated running Vicryl sutures. A negative pressure sterile dressing was applied to the sternotomy incision. The patient was transferred to the ICU in satisfactory postoperative condition. There were no intraoperative complications, and the instrument, needle, and sponge count were corrected and of operation. - Open Heart Detail CHARLES (Internal Mammary Artery) Usage: Yes Cardiopulmonary Bypass Time (mins): 75 Aortic Cross Clamp Time (mins): 48 Intentional Hypothermia Temperature (C.): 35.1
[2017-10-08] MEDS ORDERED: Acetaminophen 650 MG RECTAL SUPP RC PRN (11:47)
[2017-10-08] MEDS ORDERED: Potassium Chloride 40 MEQ/200 ML BAG IVPB PRN (11:47)
[2017-10-08] MEDS ORDERED: Insulin Regular, Human 100 UNIT/ML IV PRN (11:47)
[2017-10-08] MEDS ORDERED: *HR* Dextrose 50 % in Water (Syg) 50 ML SYRINGE IVP PRN (11:47)
[2017-10-08] MEDS ORDERED: Calcium Chloride 1,000 MG in 0.9 % Sodium Chloride 100 ML IVPB PRN (11:54)
[2017-10-08 11:57] LABS: ABG Base Excess 1 mEq/L (-2 to 3); ABG HCO3 25 mEq/L (21-27); ABG Oxygen Saturation 100 % (95-98); ABG PCO2 41 mmHg (35-45); ABG PO2 222 mmHg (85-104); ABG TCO2 27 mEq/L (20-26); Blood Gas Modality VC; Blood Gas PEEP 5 cm H2O; Blood Gas Respiration Rate 10; Blood Gas VT 600 cc
[2017-10-08] MEDS ORDERED: Norepinephrine 4 MG in D5% in Water 250 ML IVC SCH (12:00)
[2017-10-08] MEDS ORDERED: Insulin Human Regular 100 UNIT in 0.9 % Sodium Chloride 100 ML IVC SCH (12:00)
[2017-10-08 12:05] LABS: Basophils % 0.1 %; Eosinophils # 0.2 K/mcL (0.0-0.6); Eosinophils % 1.2 %; Hematocrit 33.6 % (35.3-44.9); Immature Granulocytes % 0.3 % (0-4); Lymphocytes # 2.3 K/mcL (0.6-4.6); Lymphocytes % 12.8 %; Mean Corpuscular HGB Conc 35.1 g/dL (31.6-35.5); Mean Corpuscular Hemoglobin 30.2 pg (28.0-33.3); Mean Corpuscular Volume 85.9 fL (83.0-100.0); Mean Platelet Volume 10.3 fL (9.4-12.4); Monocytes # 0.7 K/mcL (0.0-1.3); Monocytes % 3.9 %; Neutrophils # 14.7 K/mcL (1.6-8.9); Platelet Count 111 K/mcL (140-400); Red Blood Count 3.91 M/mcL (3.82-4.97); Red Cell Distribution Width 11.9 % (11.5-14.5); Segmented Neutrophils % 81.7 %
[2017-10-08 12:11] LABS: Hemoglobin 11.8 g/dL (11.5-15.4)
[2017-10-08 12:22] LABS: BUN/Creatinine Ratio 27 (6-26); Blood Urea Nitrogen 13 mg/dL (6-20); Carbon Dioxide 24 mEq/L (23-29); Chloride 112 mEq/L (98-107); Glucose 118 mg/dL (70-105); INR 1.6; Magnesium 1.8 mg/dL (1.6-2.6); Osmolality,Calculated 297 (280-300); Prothrombin Time 18.1 Seconds (9.4-12.1); Sodium 143 mEq/L (136-145); eGFR For Non-African Americans > 60 (> 60)
[2017-10-08] MEDS: 0.9 % Sodium Chloride w KCl 20 MEQ/1,000 ML MLS IVC SCH (12:42)
[2017-10-08] MEDS: Ketorolac 15 MG/ML VIAL IVP SCH ×3 (12:43→23:57)
[2017-10-08] MEDS: Metoclopramide 10 MG/2 ML VIAL IVP SCH ×3 (12:43→23:57)
[2017-10-08] MEDS: Nitroglycerin 25 MG/250 ML INFUS..BTL IVC SCH (13:03)
[2017-10-08] MEDS: niCARdipine 40 MG/200 ML MLS IVC SCH ×2 (13:30→23:59)
[2017-10-08] MEDS: *HR* OxyCODONE/APAP 5/325 TABLET PO PRN ×2 (13:43→19:26)
[2017-10-08] MEDS: *HR* FentaNYL (PF) 100 MCG/2 ML VIAL IVP PRN ×3 (14:04→23:57)
[2017-10-08] MEDS: Pantoprazole 40 MG VIAL IVP SCH (16:10)
[2017-10-08 16:17] LABS: ABG Base Excess -1 mEq/L (-2 to 3); ABG HCO3 24 mEq/L (21-27); ABG Oxygen Saturation 99 % (95-98); ABG PCO2 40 mmHg (35-45); ABG PH 7.38 pH Units (7.32-7.45); ABG PO2 117 mmHg (85-104); ABG TCO2 25 mEq/L (20-26); Blood Gas Modality CPAP/PS; Blood Gas PEEP 5 cm H2O; Blood Gas Pressure Support 5 cm H2O
--- NOTE | 2017-10-08 16:33 | Electrocardiograph Report ---
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
[2017-10-08 17:11] LABS: BUN/Creatinine Ratio 22 (6-26); Blood Urea Nitrogen 13 mg/dL (6-20); Calcium 8.3 mg/dL (8.6-10.3); Carbon Dioxide 24 mEq/L (23-29); Chloride 107 mEq/L (98-107); Glucose 209 mg/dL (70-105); Osmolality,Calculated 294 (280-300); Potassium 4.8 mEq/L (3.5-5.1); Sodium 139 mEq/L (136-145); eGFR For Non-African Americans > 60 (> 60)
[2017-10-08 17:31] LABS: ABG Base Excess -2 mEq/L (-2 to 3); ABG HCO3 23 mEq/L (21-27); ABG Oxygen Saturation 98 % (95-98); ABG PCO2 40 mmHg (35-45); ABG PH 7.38 pH Units (7.32-7.45); ABG PO2 115 mmHg (85-104); ABG TCO2 25 mEq/L (20-26)
--- NOTE | 2017-10-08 17:51 | Internal Med Progress Note ---
<Rob Corcoran P - Last Filed: 10/08/17 17:58> Date of Encounter: 10/08/17 Time of Encounter: 17:46 - Subjective Interval history: This 46 Years female patient is admitted for Cardiac bypass surgery for Multivessels CAD . She has been scheduled for Surgery Today. She is known case of CAD, DM-type 2 , HTN . This patient was not in room for evaluation this morning. She has been shifted to ICU- 1 after surgery. - Constitutional Vitals: Temp Pulse Resp BP Pulse Ox 97.7 F 66 22 105/69 99 10/07/17 15:40 10/08/17 07:00 10/08/17 16:18 10/08/17 16:18 10/08/17 16:18 Internal Medicine: Result - Labs CBC & Chem 7: 10/08/17 11:54 10/08/17 16:15 Labs: Short CBC 10/08/17 10/08/17 Range/Units 04:17 11:54 WBC 8.1 18.0 H D (4.3-11.1) K/mcL Hgb 16.2 H D 11.8 D (11.5-15.4) g/dL Hct 46.0 H 33.6 L (35.3-44.9) % Plt Count 240 111 L D (140-400) K/mcL Neutrophils # 5.3 14.7 H (1.6-8.9) K/mcL BMP 10/08/17 10/08/17 10/08/17 04:17 11:54 16:15 Sodium 135 L 143 139 Potassium 3.8 3.0 L 4.8 D Chloride 105 112 H 107 Carbon Dioxide 26 24 24 BUN 15 13 13 Creatinine 0.57 L 0.48 L 0.60 Glucose 139 H 118 H 209 H Calcium 9.1 7.0 L 8.3 L - ABG Interpretation ABG results: ABG ABG pH 7.38 pH Units (7.32-7.45) 10/08/17 17:27 ABG pCO2 40 mmHg (35-45) 10/08/17 17:27 ABG pO2 115 mmHg (85-104) H 10/08/17 17:27 ABG O2 Saturation 98 % (95-98) 10/08/17 17:27 PT/INR, D-dimer PT 18.1 Seconds (9.4-12.1) H D 10/08/17 11:54 D-Dimer 317 ng/mLFEU (0-500) 10/04/17 01:28 - Impressions Impressions Chest X-Ray 10/08/17 11:48 IMPRESSION: Endotracheal tube with tip at the level the [place] at the origin of the right mainstem bronchus. This should be withdrawn 4 cm for more optimal positioning. Enteric tube with tip in the distal esophagus. This should be advanced into the stomach prior to use. Other lines and tubes in satisfactory position. No acute focal process in the lungs. No pneumothorax. Possible nondisplaced left lateral 6th rib fracture versus artifact. D/ / Artie Flor MD / Artie Flor MD Interpreting Provider: Artie Flor MD X-Ray 10/08/17 11:48 IMPRESSION: The enteric tube has its tip near the GE junction. Advancement is needed. Gastric distention. D/ / 10/08/2017 12:38:02 Dakota Gerber MD / benito Interpreting Provider: Dakota Gerber MD - VTE Documentation of Mechanical Device: Graduated compression elastic hosiery Consult Discharge Plan - Plan Referrals: NONE,PCP [Primary Care Provider] - <Camila Miranda - Last Filed: 10/08/17 22:02> Date of Encounter: 10/08/17 - Constitutional Vitals: Temp Pulse Resp BP Pulse Ox 100.1 F H 113 12 115/65 98 10/08/17 21:00 10/08/17 21:00 10/08/17 21:00 10/08/17 21:00 10/08/17 21:00 Internal Medicine: Result - Labs CBC & Chem 7: 10/08/17 11:54 10/08/17 16:15 Labs: Short CBC 10/08/17 10/08/17 Range/Units 04:17 11:54 WBC 8.1 18.0 H D (4.3-11.1) K/mcL Hgb 16.2 H D 11.8 D (11.5-15.4) g/dL Hct 46.0 H 33.6 L (35.3-44.9) % Plt Count 240 111 L D (140-400) K/mcL Neutrophils # 5.3 14.7 H (1.6-8.9) K/mcL BMP 10/08/17 10/08/17 10/08/17 04:17 11:54 16:15 Sodium 135 L 143 139 Potassium 3.8 3.0 L 4.8 D Chloride 105 112 H 107 Carbon Dioxide 26 24 24 BUN 15 13 13 Creatinine 0.57 L 0.48 L 0.60 Glucose 139 H 118 H 209 H Calcium 9.1 7.0 L 8.3 L - ABG Interpretation ABG results: ABG ABG pH 7.38 pH Units (7.32-7.45) 10/08/17 17:27 ABG pCO2 40 mmHg (35-45) 10/08/17 17:27 ABG pO2 115 mmHg (85-104) H 10/08/17 17:27 ABG O2 Saturation 98 % (95-98) 10/08/17 17:27 PT/INR, D-dimer PT 18.1 Seconds (9.4-12.1) H D 10/08/17 11:54 D-Dimer 317 ng/mLFEU (0-500) 10/04/17 01:28 - Impressions Impressions Chest X-Ray 10/08/17 11:48 IMPRESSION: Endotracheal tube with tip at the level the [place] at the origin of the right mainstem bronchus. This should be withdrawn 4 cm for more optimal positioning. Enteric tube with tip in the distal esophagus. This should be advanced into the stomach prior to use. Other lines and tubes in satisfactory position. No acute focal process in the lungs. No pneumothorax. Possible nondisplaced left lateral 6th rib fracture versus artifact. D/ / Artie Flor MD / Artie Flor MD Interpreting Provider: Artie Flor MD X-Ray 10/08/17 11:48 IMPRESSION: The enteric tube has its tip near the GE junction. Advancement is needed. Gastric distention. D/ / 10/08/2017 12:38:02 Dakota Gerber MD / benito Interpreting Provider: Dakota Gerber MD - Attending Attestation I examined this patient and my medical decision-making was reviewed with the Resident Physician. I agree with the documented findings, disposition and treatment plan as described except to the extent set forth below. evaluated patient after arriving to ICU after CABG. Tolerated procedure without issue. Patient's son is at bedside. Patient appears older than stated age. She appears in typical post op discomfort and pain. Limited physical exam. CVS: RRR, lungs: decrease at bases, no w/r/r. 1. Coronary artery disease with multivessel disease 2. Status-post CABG 10/08/17 3. DM 4. HTN 5. Nicotine dependence - Continue post-op care, managment per CTX
[2017-10-08] MEDS: Ondansetron 4 MG/2 ML VIAL IVP PRN (19:26)
[2017-10-09] MEDS: Nitroglycerin 25 MG/250 ML INFUS..BTL IVC SCH ×2 (01:23→07:55)
[2017-10-09] MEDS: *HR* OxyCODONE/APAP 5/325 TABLET PO PRN ×4 (03:10→18:27)
[2017-10-09] MEDS: Ondansetron 4 MG/2 ML VIAL IVP PRN ×2 (03:10→08:13)
[2017-10-09] MEDS: niCARdipine 40 MG/200 ML MLS IVC SCH (03:10)
[2017-10-09 03:11] LABS: Basophils % 0.1 %; Eosinophils % 0.2 %; Hematocrit 33.4 % (35.3-44.9); Hemoglobin 11.8 g/dL (11.5-15.4); Immature Granulocytes % 0.3 % (0-4); Lymphocytes # 0.8 K/mcL (0.6-4.6); Mean Corpuscular HGB Conc 35.3 g/dL (31.6-35.5); Mean Corpuscular Hemoglobin 30.6 pg (28.0-33.3); Mean Corpuscular Volume 86.8 fL (83.0-100.0); Mean Platelet Volume 10.2 fL (9.4-12.4); Monocytes # 0.8 K/mcL (0.0-1.3); Monocytes % 7.2 %; Neutrophils # 9.8 K/mcL (1.6-8.9); Platelet Count 136 K/mcL (140-400); Red Blood Count 3.85 M/mcL (3.82-4.97); Red Cell Distribution Width 12.2 % (11.5-14.5); Segmented Neutrophils % 85.2 %
[2017-10-09 03:19] LABS: Activated Partial Thrombo Time 25.6 Seconds (26.0-36.0)
[2017-10-09 03:20] LABS: INR 1.2; Prothrombin Time 13.7 Seconds (9.4-12.1)
[2017-10-09 03:29] LABS: BUN/Creatinine Ratio 20 (6-26); Blood Urea Nitrogen 13 mg/dL (6-20); Calcium 7.9 mg/dL (8.6-10.3); Carbon Dioxide 24 mEq/L (23-29); Chloride 108 mEq/L (98-107); Glucose 140 mg/dL (70-105); Magnesium 2.1 mg/dL (1.6-2.6); Osmolality,Calculated 286 (280-300); Potassium 4.2 mEq/L (3.5-5.1); Sodium 137 mEq/L (136-145); eGFR For Non-African Americans > 60 (> 60)
[2017-10-09] MEDS: Ketorolac 15 MG/ML VIAL IVP SCH ×4 (05:13→23:07)
[2017-10-09] MEDS: *HR* FentaNYL (PF) 100 MCG/2 ML VIAL IVP PRN (05:13)
[2017-10-09] MEDS: Metoclopramide 10 MG/2 ML VIAL IVP SCH ×4 (05:13→23:07)
[2017-10-09] MEDS: 0.9 % Sodium Chloride w KCl 20 MEQ/1,000 ML MLS IVC SCH (07:54)
[2017-10-09] MEDS: Chlorhexidine Rinse 15 ML MOUTHWASH MM SCH ×2 (07:54→20:03)
[2017-10-09] MEDS: Pantoprazole 40 MG VIAL IVP SCH (07:54)
--- NOTE | 2017-10-09 08:58 | Cardiothoracic Progress Note ---
Date of Encounter: 10/09/17 Time of Encounter: 08:56 - Assessment and plan (1) CAD (coronary artery disease) Current Visit: Yes Status: Acute The patient remained hemodynamic stable overnight. She is currently extubated and breathing comfortably. The arterial line, Walters catheter, and [place] catheter will be removed. She will be transferred to the stepdown unit when a bed is available. The assessment and plan as outlined above was discussed with the patient and/or family members who expressed understanding and agreement. All questions were answered. Qualifiers: Coronary Disease-Associated Artery/Lesion type: [place] artery [place] vs. transplanted heart: [place] heart Associated angina: with unspecified angina Qualified Code(s): I25.119 - Atherosclerotic heart disease of [place] coronary artery with unspecified angina pectoris - Subjective Procedure(s) Performed: POD#1 S/P CABG4 Interval history: The patient remained hemodynamically stable overnight. She is currently extubated and breathing comfortably. She has no complaints. Vital Signs, Last 4 Hours Temp Pulse Resp BP Pulse Ox 10/09/17 08:17 99.2 F 113 20 133/68 98 10/09/17 07:30 17 99 10/09/17 07:29 99.2 F 10/09/17 07:00 101 15 122/60 98 10/09/17 06:00 112 16 111/58 97 10/09/17 05:00 99.2 F 110 14 120/64 97 Oxgyen Flow Rate Oxygen Flow Rate (LPM) 2 Clinical Data, last 8 Hours Output, Chest Tube Drainage 10 Amount [Mediastinal #2] Output, Chest Tube Drainage 0 Amount [Mediastinal #2] Output, Chest Tube Drainage 0 Amount [Mediastinal #2] Output, Chest Tube Drainage 0 Amount [Mediastinal #2] Output, Chest Tube Drainage 15 Amount [Mediastinal #2] Output, Chest Tube Drainage 0 Amount [Mediastinal #2] Output, Chest Tube Drainage 0 Amount [Mediastinal #2] Output, Chest Tube Drainage 0 Amount [Mediastinal #2] Output, Chest Tube Drainage 20 Amount [Mediastinal #1] Output, Chest Tube Drainage 0 Amount [Mediastinal #1] Output, Chest Tube Drainage 0 Amount [Mediastinal #1] Output, Chest Tube Drainage 20 Amount [Mediastinal #1] Output, Chest Tube Drainage 10 Amount [Mediastinal #1] Output, Chest Tube Drainage 10 Amount [Mediastinal #1] Output, Chest Tube Drainage 10 Amount [Mediastinal #1] Output, Chest Tube Drainage 20 Amount [Mediastinal #1] Weight 10/07/17 10/08/17 10/09/17 23:59 23:59 23:59 Weight 89.4 kg - Physical Examination General: Conversant, No Apparent Distress Neck: No JVD, Normal carotid pulses Cardiac: Reg Rate and Rhythm, Normal S1 and S2, No Murmur Incision: No signs of infection, Dry/intact dressing Sternum: Stable Chest tubes: Minimal drainage, Other (No air leak) Lungs: Normal Breath Sounds, No Wheeze, Rales, Rhonchi Neuro: Alert and responsive, No focal deficits noted Vascular: Normal capillary refill Musculoskeletal: No Chest Wall Tenderness Extremities: No Clubbing, No Cyanosis, No Edema, Normal Pulses - Labs 10/09/17 02:55 10/09/17 02:55 Lab Results, Last 24 hours 10/08/17 10/08/17 10/08/17 11:54 11:54 11:54 WBC 18.0 H D Hgb 11.8 D Hct 33.6 L Plt Count 111 L D INR 1.6 APTT 30.0 Sodium 143 Potassium 3.0 L Chloride 112 H Carbon Dioxide 24 BUN 13 Creatinine 0.48 L Glucose 118 H Calcium 7.0 L Magnesium 1.8 10/08/17 10/09/17 10/09/17 16:15 02:55 02:55 WBC 11.5 H Hgb 11.8 Hct 33.4 L Plt Count 136 L INR 1.2 APTT 25.6 L Sodium 139 Potassium 4.8 D Chloride 107 Carbon Dioxide 24 BUN 13 Creatinine 0.60 Glucose 209 H Calcium 8.3 L Magnesium 10/09/17 02:55 WBC Hgb Hct Plt Count INR APTT Sodium 137 Potassium 4.2 Chloride 108 H Carbon Dioxide 24 BUN 13 Creatinine 0.66 Glucose 140 H Calcium 7.9 L Magnesium 2.1 - Imaging Chest Xray: image reviewed (No pneumothorax. Left basilar atelectasis.) - VTE Documentation of Mechanical Device: Graduated compression elastic hosiery Consult Discharge Plan - Plan Referrals: NONE,PCP [Primary Care Provider] -
[2017-10-09] MEDS ORDERED: Furosemide 20 MG/2 ML VIAL IVP SCH (09:00)
[2017-10-09] MEDS ORDERED: Aspirin Enteric Coated 81 MG Tablet PO SCH (09:00)
--- NOTE | 2017-10-09 09:49 | Anesthesia Evaluation Post Op ---
Date of Encounter: 10/09/17 Time of Encounter: 08:15 - Vital Signs Vital Signs: Selected Entries 10/09/17 08:17 Temperature 99.2 F Pulse Rate 113 Respiratory Rate 20 Blood Pressure 133/68 O2 Sat by Pulse Oximetry 98 Oxygen Flow Rate (LPM) 2 Oxygen Delivery Method Nasal Cannula - Lungs Lungs: Clear Ascult./Percussion - Airway Airway: Non-obstructed - Cardiovascular Regular Rate - Mental Status Mental Status: Alert & Oriented, Answers Appropriately - Pain Pain Scale: 3 Pain Scale used: Numeric (1 - 10) - Nausea Vomiting Nausea Vomiting: Not Present - Hydration Hydration: Tolerates oral liquids, Walters catheter (patient post op day 1 CABG, doing well, extubated and stable. No apparent anesthesia complications)
[2017-10-09] MEDS ORDERED: D5% in Water 1,000 ML IVC PRN (09:54)
[2017-10-09] MEDS ORDERED: Insulin Human Regular 100 UNIT in 0.9 % Sodium Chloride 100 ML IVC SCH (09:54)
[2017-10-09] MEDS ORDERED: Insulin Regular, Human 100 UNIT/ML IV PRN (09:54)
[2017-10-09] MEDS ORDERED: Naloxone 0.4 MG/ML INJ IVP PRN (09:54)
[2017-10-09] MEDS ORDERED: *HR* Dextrose 50 % in Water (Syg) 50 ML SYRINGE IVP PRN (09:54)
[2017-10-09] MEDS ORDERED: *HR* FentaNYL (PF) 100 MCG/2 ML VIAL IVP PRN (09:54)
[2017-10-09] MEDS ORDERED: Ondansetron 4 MG/2 ML VIAL IVP PRN (09:54)
[2017-10-09] MEDS ORDERED: Acetaminophen 325 MG TABLET PO PRN (09:54)
[2017-10-09] MEDS ORDERED: Dextrose Gel 15 GM/37.5 ML TUBE PO PRN ×2 (09:54)
[2017-10-09] MEDS: Insulin LISPRO 300 UNITS/3 ML VIAL SQ SCH ×3 (12:06→19:26)
--- NOTE | 2017-10-09 18:12 | Internal Med Progress Note ---
Hospitalist Progress Note - Encounter Date of Encounter: 10/09/17 Time of Encounter: 18:07 - Exam Vitals: Temp Pulse Resp BP Pulse Ox 98.5 F 98 16 125/91 100 10/09/17 16:46 10/09/17 16:00 10/09/17 16:41 10/09/17 16:00 10/09/17 16:41 Exam: Patient had CABG x4 yesterday. Today no complaints, no acute events. - Assessment and Plan (1) CAD (coronary artery disease) Current Visit: Yes Status: Acute Assessment and Plan: S/P CABG, management per Cardiothoracic Surgery (2) Hypertension Current Visit: Yes Status: Chronic (3) Diabetes mellitus Current Visit: Yes Status: Chronic Assessment and Plan: Last A1c in 2014 was 7.5. Not taking any medicine at home continue moderate dose sliding scale coverage A1c is 8.8 currently Likely needs metformin discharge +/- second agent Increase Lantus to 10 mg daily at bedtime follow accuchecks (4) Tobacco dependence Current Visit: Yes Status: Acute Assessment and Plan: Counseled regarding smoking cessation - Time Spent with Patient Total time spent is greater than 50% in coordination of care (as documented) at patient's floor/unit and/or counseling patient: Internal Medicine: Result - Labs CBC & Chem 7: 10/09/17 02:55 10/09/17 02:55 Labs: Short CBC 10/09/17 Range/Units 02:55 WBC 11.5 H (4.3-11.1) K/mcL Hgb 11.8 (11.5-15.4) g/dL Hct 33.4 L (35.3-44.9) % Plt Count 136 L (140-400) K/mcL Neutrophils # 9.8 H (1.6-8.9) K/mcL BMP 10/09/17 02:55 Sodium 137 Potassium 4.2 Chloride 108 H Carbon Dioxide 24 BUN 13 Creatinine 0.66 Glucose 140 H Calcium 7.9 L - ABG Interpretation ABG results: ABG ABG pH 7.38 pH Units (7.32-7.45) 10/08/17 17:27 ABG pCO2 40 mmHg (35-45) 10/08/17 17:27 ABG pO2 115 mmHg (85-104) H 10/08/17 17:27 ABG O2 Saturation 98 % (95-98) 10/08/17 17:27 PT/INR, D-dimer PT 13.7 Seconds (9.4-12.1) H 10/09/17 02:55 D-Dimer 317 ng/mLFEU (0-500) 10/04/17 01:28 - Impressions Impressions KUB X-Ray 10/08/17 11:48 IMPRESSION: The enteric tube has its tip near the GE junction. Advancement is needed. Gastric distention. D/ / 10/08/2017 12:38:02 Dakota Gerber MD / benito Interpreting Provider: Dakota Gerber MD Chest X-Ray 10/09/17 04:00 IMPRESSION: Increasing left basilar opacity, possibly atelectasis. No pneumothorax is visible. D/ / Steve Jimenez MD / Steve Jimenez MD Interpreting Provider: Steve Jimenez MD - VTE Documentation of Mechanical Device: Intermittent pneumatic compression device Consult Discharge Plan - Plan Referrals: NONE,PCP [Primary Care Provider] - (1) CAD (coronary artery disease) Qualifiers: Coronary Disease-Associated Artery/Lesion type: [place] artery [place] vs. transplanted heart: [place] heart Associated angina: with unspecified angina Qualified Code(s): I25.119 - Atherosclerotic heart disease of [place] coronary artery with unspecified angina pectoris (2) Hypertension Qualifiers: Hypertension type: essential hypertension Qualified Code(s): I10 - Essential (primary) hypertension (3) Diabetes mellitus Qualifiers: Diabetes mellitus type: type 2 Diabetes mellitus complication status: with neurologic complications Diabetes mellitus complication detail: with unspecified neuropathy Qualified Code(s): E11.40 - Type 2 diabetes mellitus with diabetic neuropathy, unspecified
[2017-10-09] MEDS: *HR* Heparin 5,000 UNIT/ML VIAL SQ SCH (18:21)
[2017-10-09] MEDS: Furosemide 20 MG/2 ML VIAL IVP SCH (20:04)
[2017-10-10] MEDS: *HR* OxyCODONE/APAP 5/325 TABLET PO PRN ×4 (01:59→21:14)
[2017-10-10 03:20] LABS: Basophils % 0.1 %; Eosinophils # 0.1 K/mcL (0.0-0.6); Eosinophils % 1.4 %; Hemoglobin 10.4 g/dL (11.5-15.4); Immature Granulocytes % 0.3 % (0-4); Lymphocytes # 1.3 K/mcL (0.6-4.6); Mean Corpuscular HGB Conc 34.7 g/dL (31.6-35.5); Mean Corpuscular Volume 89.6 fL (83.0-100.0); Mean Platelet Volume 10.4 fL (9.4-12.4); Monocytes # 0.7 K/mcL (0.0-1.3); Monocytes % 6.9 %; Neutrophils # 7.3 K/mcL (1.6-8.9); Platelet Count 134 K/mcL (140-400); Red Blood Count 3.35 M/mcL (3.82-4.97); Segmented Neutrophils % 77.3 %
[2017-10-10 03:29] LABS: BUN/Creatinine Ratio 28 (6-26); Blood Urea Nitrogen 16 mg/dL (6-20); Calcium 7.9 mg/dL (8.6-10.3); Carbon Dioxide 26 mEq/L (23-29); Chloride 102 mEq/L (98-107); Glucose 165 mg/dL (70-105); Osmolality,Calculated 285 (280-300); Potassium 4.1 mEq/L (3.5-5.1); Sodium 135 mEq/L (136-145); eGFR For Non-African Americans > 60 (> 60)
[2017-10-10] MEDS: Ketorolac 15 MG/ML VIAL IVP SCH ×3 (05:05→18:00)
[2017-10-10] MEDS: Metoclopramide 10 MG/2 ML VIAL IVP SCH ×3 (05:05→18:00)
[2017-10-10] MEDS: *HR* Heparin 5,000 UNIT/ML VIAL SQ SCH ×2 (05:05→18:00)
--- NOTE | 2017-10-10 07:38 | Pulmonology Consult Note ---
Date of Encounter: 10/10/17 Time of Encounter: 07:38 Past Med Surg Social Fam HX - Past Medical History Medical history: coronary artery disease, diabetes, hypertension, myocardial infarction, valvular heart disease Psychiatric history: no psych history - Past Surgical History Surgical History: hysterectomy - Social History Smoking Status: Current every day smoker Packs per day: 0.5 Smokeless Tobacco Status: No Alcohol use: none Drug use: none - Family History Mother Hx Family Cardiac Disorders: Yes Medications and Allergies Aspirin 81 mg PO DAILY #30 tab.chew 01/12/15 [Rx] 3 Allergy/AdvReac Type Severity Reaction Status Date / Time aluminum hydroxide AdvReac Chest Pain Verified 09/12/15 06:13 [From Maalox Advanced] bismuth subsalicylate AdvReac Chest Pain Verified 09/12/15 06:13 [From Pepto-Bismol] calcium carbonate AdvReac Chest Pain Verified 09/12/15 06:13 [From Maalox Advanced] magnesium AdvReac Chest Pain Verified 09/12/15 06:13 [From Maalox Advanced] simethicone AdvReac Chest Pain Verified 09/12/15 06:13 [From Maalox Advanced] All Systems: The remainder of the systems were reviewed and are negative Physical Examination Vital Signs: Vital Signs, Last 4 Hours Temp Pulse Resp BP Pulse Ox 10/10/17 07:30 98.3 F 10/10/17 07:24 18 98 10/10/17 05:00 112 18 103/60 97 10/10/17 04:37 98.6 F 10/10/17 03:47 18 97 Results - Laboratory Findings CBC and BMP: 10/10/17 03:00 10/10/17 03:00 ABG ABG pH 7.38 pH Units (7.32-7.45) 10/08/17 17:27 ABG pCO2 40 mmHg (35-45) 10/08/17 17:27 ABG pO2 115 mmHg (85-104) H 10/08/17 17:27 ABG O2 Saturation 98 % (95-98) 10/08/17 17:27 PT/INR, D-dimer PT 13.7 Seconds (9.4-12.1) H 10/09/17 02:55 D-Dimer 317 ng/mLFEU (0-500) 10/04/17 01:28 Abnormal lab findings: Abnormal lab results RBC 3.35 M/mcL (3.82-4.97) L 10/10/17 03:00 Hgb 10.4 g/dL (11.5-15.4) L 10/10/17 03:00 Hct 30.0 % (35.3-44.9) L 10/10/17 03:00 Plt Count 134 K/mcL (140-400) L 10/10/17 03:00 PT 13.7 Seconds (9.4-12.1) H 10/09/17 02:55 APTT 25.6 Seconds (26.0-36.0) L 10/09/17 02:55 ABG pO2 115 mmHg (85-104) H 10/08/17 17:27 ABG Hematocrit 24.0 % (35.3-44.9) L 10/08/17 10:34 Glucose 209 mg/dL (60-95) H 10/08/17 10:34 Sodium 135 mEq/L (136-145) L 10/10/17 03:00 Creatinine 0.58 mg/dL (0.60-1.20) L 10/10/17 03:00 BUN/Creatinine Ratio 28 (6-26) H 10/10/17 03:00 Glucose 165 mg/dL (70-105) H 10/10/17 03:00 POC Glucose 174 mg/dL (70-99) H 10/09/17 19:14 Hemoglobin A1c 8.8 % (-5.6) H 10/07/17 08:08 Calcium 7.9 mg/dL (8.6-10.3) L 10/10/17 03:00 AST 11 Units/L (13-39) L 10/04/17 01:28 Triglycerides 209 mg/dL (< 150) H 10/07/17 08:08 VLDL Cholesterol, Calc 42 mg/dL (< 31) H 10/07/17 08:08 HDL Cholesterol 28 mg/dL (40-59) L 10/07/17 08:08 Arterial Blood Ionized Calcium 0.99 mmol/L (1.15-1.35) L 10/08/17 10:34 Ur Specific [place] 1.026 (1.010-1.025) H 10/04/17 01:41 Urine Protein 30 mg/dL (Neg-Trace) H 10/04/17 01:41 Urine Glucose (UA) >=1000 mg/dL (Normal) H 10/04/17 01:41 Urine Microscopic RBC 3-5 per hpf (0-3) H 10/04/17 01:41 Ur Squamous Epith Cells Many per lpf (None-Few) H 10/04/17 01:41 - Clinical Findings Intake & Output: Intake & Output 10/09/17 10/09/17 10/10/17 15:59 23:59 07:59 Intake Total 100 / 100 Output Total 485 / 485 656 / 656 124 / 124 Balance -485 / -485 -656 / -656 -24 / -24 Weight 80.8 kg Consult Discharge Plan - Plan Referrals: NONE,PCP [Primary Care Provider] -
--- NOTE | 2017-10-10 08:41 | Cardiothoracic Progress Note ---
Date of Encounter: 10/10/17 Time of Encounter: 08:39 - Assessment and plan (1) CAD (coronary artery disease) Current Visit: Yes Status: Acute The chest tubes were removed. The pacing wires were left in place. I will increase the Lopressor dosage. The patient has transfer orders and will be transferred to her room when a bed becomes available. Qualifiers: Coronary Disease-Associated Artery/Lesion type: [place] artery [place] vs. transplanted heart: [place] heart Associated angina: with unspecified angina Qualified Code(s): I25.119 - Atherosclerotic heart disease of [place] coronary artery with unspecified angina pectoris - Subjective Interval history: The patient has no complaints. She has only mild postoperative pain. Vital Signs, Last 4 Hours Temp Pulse Resp BP Pulse Ox 10/10/17 07:30 98.3 F 10/10/17 07:24 18 98 10/10/17 05:00 112 18 103/60 97 Oxgyen Flow Rate Oxygen Flow Rate (LPM) 1 Clinical Data, last 8 Hours Output, Chest Tube Drainage 0 Amount [Mediastinal #2] Output, Chest Tube Drainage 5 Amount [Mediastinal #2] Output, Chest Tube Drainage 40 Amount [Mediastinal #1] Output, Chest Tube Drainage 45 Amount [Mediastinal #1] Weight 10/08/17 10/09/17 10/10/17 23:59 23:59 23:59 Weight 89.4 kg 80.8 kg Lungs are clear to percussion and auscultation. Heart is in a normal sinus rhythm. All incisions are healing well without signs of infection and the sternum is stable. Chest tubes had minimal drainage and there is no air leak. - Labs 10/10/17 03:00 10/10/17 03:00 Lab Results, Last 24 hours 10/10/17 10/10/17 03:00 03:00 WBC 9.4 Hgb 10.4 L Hct 30.0 L Plt Count 134 L Sodium 135 L Potassium 4.1 Chloride 102 Carbon Dioxide 26 BUN 16 Creatinine 0.58 L Glucose 165 H Calcium 7.9 L - VTE Documentation of Mechanical Device: Graduated compression elastic hosiery Consult Discharge Plan - Plan Referrals: NONE,PCP [Primary Care Provider] -
[2017-10-10] MEDS: Pantoprazole 40 MG VIAL IVP SCH (08:52)
[2017-10-10] MEDS: Aspirin Enteric Coated 81 MG Tablet PO SCH (08:52)
[2017-10-10] MEDS: Chlorhexidine Rinse 15 ML MOUTHWASH MM SCH (08:52)
[2017-10-10] MEDS: Furosemide 20 MG/2 ML VIAL IVP SCH ×2 (08:52→21:13)
[2017-10-10] MEDS: Insulin LISPRO 300 UNITS/3 ML VIAL SQ SCH ×4 (08:53→21:16)
--- NOTE | 2017-10-10 09:26 | Internal Med Progress Note ---
<Rob Corcoran P - Last Filed: 10/10/17 16:49> Hospitalist Progress Note - Encounter Date of Encounter: 10/10/17 Time of Encounter: 10:00 - Subjective Interval History: This 46 Years female patient is admitted for Cardiac bypass surgery for Multivessels CAD, surgery ( CABG 4 vessels) was done on 10/08 . She is known case of CAD, DM-type 2 , HTN . She is in ICU 1 and waiting to shift to step down unit. Today is 2nd POD . She is feeling well. No fresh complaints.She denies any cough, fever, pain , dizziness, nausea vomiting, abdominal distension and leg swelling, wound side pain and welling. Her A line, catheter , chest tube has been out. She is stable Hypodermically : BP 103/60 , Tem 98.3 , saturation 98%, pulse 112 We will again review her after she is shifted to our general unit from ICU. - Exam Vitals: Temp Pulse Resp BP Pulse Ox 98.3 F 112 18 103/60 98 10/10/17 07:30 10/10/17 05:00 10/10/17 07:24 10/10/17 05:00 10/10/17 07:24 Exam: She is not in acute distress , Well oriented to time place and person HEENT: normal finding, no redness, pain in throat noted Chest: Equal air entry both side, no Rales and rhochi, no evidence of wound site infection noted. CVS : S1 S2 normal rate and rhythm, no murmur or any added sound, no JVD Abdomen: Soft, warm, not distended, no organomegaly Extremities: no Swelling in calf, no pedal edema - Assessment and Plan (1) Hypertension Current Visit: Yes Status: Chronic Assessment and Plan: She is on Beta bessie Metoprolol 50 mg BD Monitoring heart rate and BP , : Pulse 112 , BP 103/60 (2) Diabetes mellitus Current Visit: Yes Status: Chronic Assessment and Plan: Latest blood sugar 165 and POC glucose 174, Last A1c in 2014 was 7.5 and A1c is 8.8 currently continue moderate dose sliding scale coverage Likely needs metformin discharge +/- second agent Increase Lantus to 10 mg daily at bedtime follow accuchecks (3) CAD (coronary artery disease) Current Visit: Yes Status: Acute Assessment and Plan: Multivessels Coronary artery disease CABG x4 done on 10/08 Today is 2nd POD (4) Tobacco dependence Current Visit: Yes Status: Acute - Time Spent with Patient Total time spent is greater than 50% in coordination of care (as documented) at patient's floor/unit and/or counseling patient: Internal Medicine: Result - Labs CBC & Chem 7: 10/10/17 03:00 10/10/17 03:00 Labs: Short CBC 10/10/17 Range/Units 03:00 WBC 9.4 (4.3-11.1) K/mcL Hgb 10.4 L (11.5-15.4) g/dL Hct 30.0 L (35.3-44.9) % Plt Count 134 L (140-400) K/mcL Neutrophils # 7.3 (1.6-8.9) K/mcL BMP 10/10/17 03:00 Sodium 135 L Potassium 4.1 Chloride 102 Carbon Dioxide 26 BUN 16 Creatinine 0.58 L Glucose 165 H Calcium 7.9 L - ABG Interpretation ABG results: ABG ABG pH 7.38 pH Units (7.32-7.45) 10/08/17 17:27 ABG pCO2 40 mmHg (35-45) 10/08/17 17:27 ABG pO2 115 mmHg (85-104) H 10/08/17 17:27 ABG O2 Saturation 98 % (95-98) 10/08/17 17:27 PT/INR, D-dimer PT 13.7 Seconds (9.4-12.1) H 10/09/17 02:55 D-Dimer 317 ng/mLFEU (0-500) 10/04/17 01:28 - Impressions Impressions Chest X-Ray 10/10/17 08:44 IMPRESSION: Mild pulmonary vascular congestion and possible trace left-sided pleural effusion. D/ / Ana Perea MD / Ana Perea MD Interpreting Provider: Ana Perea MD - VTE Documentation of Mechanical Device: Graduated compression elastic hosiery Consult Discharge Plan - Plan Referrals: NONE,PCP [Primary Care Provider] - <Camila Miranda - Last Filed: 10/10/17 18:06> Hospitalist Progress Note - Encounter Date of Encounter: 10/10/17 - Exam Vitals: Temp Pulse Resp BP Pulse Ox 98.7 F 107 18 100/59 99 10/10/17 16:17 10/10/17 16:17 10/10/17 16:17 10/10/17 16:17 10/10/17 16:17 - Assessment and Plan (1) Hypertension Current Visit: Yes Status: Chronic (2) Diabetes mellitus Current Visit: Yes Status: Chronic (3) CAD (coronary artery disease) Current Visit: Yes Status: Acute (4) Tobacco dependence Current Visit: Yes Status: Acute - Time Spent with Patient Total time spent is greater than 50% in coordination of care (as documented) at patient's floor/unit and/or counseling patient: Internal Medicine: Result - Labs CBC & Chem 7: 10/10/17 03:00 10/10/17 03:00 Labs: Short CBC 10/10/17 Range/Units 03:00 WBC 9.4 (4.3-11.1) K/mcL Hgb 10.4 L (11.5-15.4) g/dL Hct 30.0 L (35.3-44.9) % Plt Count 134 L (140-400) K/mcL Neutrophils # 7.3 (1.6-8.9) K/mcL BMP 10/10/17 03:00 Sodium 135 L Potassium 4.1 Chloride 102 Carbon Dioxide 26 BUN 16 Creatinine 0.58 L Glucose 165 H Calcium 7.9 L - ABG Interpretation ABG results: ABG ABG pH 7.38 pH Units (7.32-7.45) 10/08/17 17:27 ABG pCO2 40 mmHg (35-45) 10/08/17 17:27 ABG pO2 115 mmHg (85-104) H 10/08/17 17:27 ABG O2 Saturation 98 % (95-98) 10/08/17 17:27 PT/INR, D-dimer PT 13.7 Seconds (9.4-12.1) H 10/09/17 02:55 D-Dimer 317 ng/mLFEU (0-500) 10/04/17 01:28 - Impressions Impressions Chest X-Ray 10/10/17 08:44 IMPRESSION: Mild pulmonary vascular congestion and possible trace left-sided pleural effusion. D/ / Ana Perea MD / Ana Perea MD Interpreting Provider: Ana Perea MD - Attending Attestation I examined this patient and my medical decision-making was reviewed with the Resident Physician. I agree with the documented findings, disposition and treatment plan as described except to the extent set forth below. <Rob Corcoran - Last Filed: 10/10/17 16:49> (1) Hypertension Qualifiers: Hypertension type: essential hypertension Qualified Code(s): I10 - Essential (primary) hypertension (2) Diabetes mellitus Qualifiers: Diabetes mellitus type: type 2 Diabetes mellitus complication status: with neurologic complications Diabetes mellitus complication detail: with unspecified neuropathy (3) CAD (coronary artery disease) Qualifiers: Coronary Disease-Associated Artery/Lesion type: [place] artery [place] vs. transplanted heart: [place] heart Associated angina: with unspecified angina Qualified Code(s): I25.119 - Atherosclerotic heart disease of [place] coronary artery with unspecified angina pectoris <Camila Miranda - Last Filed: 10/10/17 18:06> (1) Hypertension Qualifiers: Hypertension type: essential hypertension Qualified Code(s): I10 - Essential (primary) hypertension (2) Diabetes mellitus Qualifiers: Diabetes mellitus type: type 2 Diabetes mellitus complication status: with neurologic complications Diabetes mellitus complication detail: with unspecified neuropathy (3) CAD (coronary artery disease) Qualifiers: Coronary Disease-Associated Artery/Lesion type: [place] artery [place] vs. transplanted heart: [place] heart Associated angina: with unspecified angina Qualified Code(s): I25.119 - Atherosclerotic heart disease of [place] coronary artery with unspecified angina pectoris
[2017-10-11] MEDS: Chlorhexidine Rinse 15 ML MOUTHWASH MM SCH ×3 (00:21→20:42)
[2017-10-11] MEDS: Metoclopramide 10 MG/2 ML VIAL IVP SCH ×3 (00:21→12:04)
[2017-10-11] MEDS: Ketorolac 15 MG/ML VIAL IVP SCH ×5 (02:42→23:20)
[2017-10-11 04:17] LABS: Basophils % 0.4 %; Eosinophils # 0.2 K/mcL (0.0-0.6); Eosinophils % 2.6 %; Hemoglobin 9.7 g/dL (11.5-15.4); Immature Granulocytes % 0.4 % (0-4); Lymphocytes # 1.3 K/mcL (0.6-4.6); Lymphocytes % 16.3 %; Mean Corpuscular HGB Conc 34.6 g/dL (31.6-35.5); Mean Corpuscular Hemoglobin 30.6 pg (28.0-33.3); Mean Corpuscular Volume 88.3 fL (83.0-100.0); Monocytes # 0.6 K/mcL (0.0-1.3); Monocytes % 7.3 %; Neutrophils # 5.6 K/mcL (1.6-8.9); Platelet Count 160 K/mcL (140-400); Red Blood Count 3.17 M/mcL (3.82-4.97); Red Cell Distribution Width 11.9 % (11.5-14.5)
[2017-10-11 04:28] LABS: BUN/Creatinine Ratio 30 (6-26); Blood Urea Nitrogen 17 mg/dL (6-20); Calcium 8.2 mg/dL (8.6-10.3); Carbon Dioxide 28 mEq/L (23-29); Chloride 100 mEq/L (98-107); Glucose 163 mg/dL (70-105); Osmolality,Calculated 283 (280-300); Potassium 4.2 mEq/L (3.5-5.1); Sodium 134 mEq/L (136-145); eGFR For Non-African Americans > 60 (> 60)
[2017-10-11] MEDS: *HR* Heparin 5,000 UNIT/ML VIAL SQ SCH ×2 (05:34→16:24)
[2017-10-11] MEDS: Pantoprazole 40 MG VIAL IVP SCH (07:45)
[2017-10-11] MEDS: Furosemide 20 MG/2 ML VIAL IVP SCH ×2 (07:45→20:43)
[2017-10-11] MEDS: Aspirin Enteric Coated 81 MG Tablet PO SCH (07:46)
[2017-10-11] MEDS: Insulin LISPRO 300 UNITS/3 ML VIAL SQ SCH ×4 (07:46→20:42)
--- NOTE | 2017-10-11 07:59 | Cardiothoracic Progress Note ---
Date of Encounter: 10/11/17 Time of Encounter: 07:36 - Assessment and plan (1) CAD (coronary artery disease) Current Visit: Yes Status: Acute The patient remained hemodynamic stable overnight. She continue ambulating in the ICU today. She will be transferred to the stepdown unit when a bed is available. The assessment and plan as outlined above was discussed with the patient and/or family members who expressed understanding and agreement. All questions were answered. Qualifiers: Coronary Disease-Associated Artery/Lesion type: [place] artery [place] vs. transplanted heart: [place] heart Associated angina: with unspecified angina Qualified Code(s): I25.119 - Atherosclerotic heart disease of [place] coronary artery with unspecified angina pectoris - Subjective Procedure(s) Performed: POD#3 S/P CABG4 Interval history: The patient remained hemodynamically stable overnight. She has no complaints. Vital Signs, Last 4 Hours Temp Pulse Resp BP Pulse Ox 10/11/17 07:54 99 10/11/17 07:48 15 93 10/11/17 06:00 87 15 100/64 93 10/11/17 04:24 98.3 F 10/11/17 04:00 91 14 98/60 91 Oxgyen Flow Rate Oxygen Flow Rate (LPM) 1 Clinical Data, last 8 Hours Output, Urine Amount 300 Output, Urine Amount 1,200 Weight 10/09/17 10/10/17 10/11/17 23:59 23:59 23:59 Weight 80.8 kg 81.2 kg - Physical Examination General: Conversant, No Apparent Distress Neck: No JVD, Normal carotid pulses Cardiac: Reg Rate and Rhythm, Normal S1 and S2, No Murmur Incision: No signs of infection, Dry/intact dressing Sternum: Stable Pacing Wires: In place Lungs: Normal Breath Sounds, No Wheeze, Rales, Rhonchi Neuro: Alert and responsive, No focal deficits noted Vascular: Normal capillary refill Extremities: No Clubbing, No Cyanosis, No Edema - Labs 10/11/17 04:00 10/11/17 04:00 Lab Results, Last 24 hours 10/11/17 10/11/17 04:00 04:00 WBC 7.7 Hgb 9.7 L Hct 28.0 L Plt Count 160 Sodium 134 L Potassium 4.2 Chloride 100 Carbon Dioxide 28 BUN 17 Creatinine 0.56 L Glucose 163 H Calcium 8.2 L - VTE Documentation of Mechanical Device: Graduated compression elastic hosiery Consult Discharge Plan - Plan Referrals: NONE,PCP [Primary Care Provider] -
--- NOTE | 2017-10-11 09:18 | Internal Med Progress Note ---
<Rob Corcoran P - Last Filed: 10/11/17 16:40> Date of Encounter: 10/11/17 Time of Encounter: 09:28 - Assessment and plan (1) Hypertension Current Visit: Yes Status: Chronic Assessment and plan: She is on Beta bessie Metoprolol 50 mg BD Monitoring heart rate and BP , : her Pulse 97 , BP 107/88 Qualifiers: Hypertension type: essential hypertension Qualified Code(s): I10 - Essential (primary) hypertension (2) Diabetes mellitus Current Visit: Yes Status: Chronic Assessment and plan: Latest blood sugar 165 and POC glucose 146 Last A1c in 2014 was 7.5 and A1c is 8.8 currently continue moderate dose sliding scale coverage Likely needs metformin discharge +/- second agent Qualifiers: Diabetes mellitus type: type 2 Diabetes mellitus complication status: with neurologic complications Diabetes mellitus complication detail: with unspecified neuropathy Qualified Code(s): E11.40 - Type 2 diabetes mellitus with diabetic neuropathy, unspecified (3) CAD (coronary artery disease) Current Visit: Yes Status: Acute Assessment and plan: 4 Vessels CABG done on 10/08 Today is 3rd POD No complaints Qualifiers: Coronary Disease-Associated Artery/Lesion type: [place] artery [place] vs. transplanted heart: [place] heart Associated angina: with unspecified angina Qualified Code(s): I25.119 - Atherosclerotic heart disease of [place] coronary artery with unspecified angina pectoris (4) Tobacco dependence Current Visit: Yes Status: Acute - Subjective Interval history: This 46 Years female patient is admitted for Cardiac bypass surgery for Multivessels CAD, surgery ( CABG 4 vessels) was done on 10/08 . She is known case of CAD, DM-type 2 , HTN . She is in ICU 1 and waiting to shift to step down unit. Today is 3rd POD . She is feeling well. No fresh complaints.She denies any cough, fever, pain , dizziness, nausea vomiting, abdominal distension and leg swelling, wound side pain and swelling. Her A line, catheter , chest tube has been out. She is stable Hemodynamically : her BP 122/81 , Tem 98.3 , saturation 94%, pulse 97. We will again review her after she is shifted to our general unit from ICU. - Constitutional Vitals: Temp Pulse Resp BP Pulse Ox 98.3 F 97 20 122/81 94 10/11/17 08:00 10/11/17 08:00 10/11/17 08:00 10/11/17 08:00 10/11/17 08:00 General appearance: Present: A&O X 3, no acute distress, answers questions appropriately - Head Head exam: Present: atraumatic, normal inspection, normocephalic - Respiratory Additional comments: Normal Breath Sounds, normal air entry both sides ,No Wheeze, Rales, Rhonchi No sign of wound side infection - Cardiovascular Additional comments: Reg Rate and Rhythm, Normal S1 and S2, No Murmur - GI/Abdominal Additional comments: Soft ,warm not tender, no organomegaly, no vissible masss or pulsation. Internal Medicine: Result - Labs CBC & Chem 7: 10/11/17 04:00 10/11/17 04:00 Labs: Short CBC 10/11/17 Range/Units 04:00 WBC 7.7 (4.3-11.1) K/mcL Hgb 9.7 L (11.5-15.4) g/dL Hct 28.0 L (35.3-44.9) % Plt Count 160 (140-400) K/mcL Neutrophils # 5.6 (1.6-8.9) K/mcL BMP 10/11/17 04:00 Sodium 134 L Potassium 4.2 Chloride 100 Carbon Dioxide 28 BUN 17 Creatinine 0.56 L Glucose 163 H Calcium 8.2 L - ABG Interpretation ABG results: ABG ABG pH 7.38 pH Units (7.32-7.45) 10/08/17 17:27 ABG pCO2 40 mmHg (35-45) 10/08/17 17:27 ABG pO2 115 mmHg (85-104) H 10/08/17 17:27 ABG O2 Saturation 98 % (95-98) 10/08/17 17:27 PT/INR, D-dimer PT 13.7 Seconds (9.4-12.1) H 10/09/17 02:55 D-Dimer 317 ng/mLFEU (0-500) 10/04/17 01:28 - Impressions Impressions Chest X-Ray 10/10/17 08:44 IMPRESSION: Mild pulmonary vascular congestion and possible trace left-sided pleural effusion. D/ / Ana Perea MD / Ana Perea MD Interpreting Provider: Ana Perea MD - VTE Documentation of Mechanical Device: Graduated compression elastic hosiery Consult Discharge Plan - Plan Referrals: Joseluis Sarmiento MD [Partnered Physician] - 11/08/17 1:00 pm Lotus Best CNP [Partnered Physician] - 11/28/17 9:30 am Mena Collazo CNP [Advanced Practice Nurse] - 10/18/17 9:45 am <Camila Miranda - Last Filed: 10/11/17 19:46> Date of Encounter: 10/11/17 - Assessment and plan (1) Hypertension Current Visit: Yes Status: Chronic Qualifiers: Hypertension type: essential hypertension Qualified Code(s): I10 - Essential (primary) hypertension (2) Diabetes mellitus Current Visit: Yes Status: Chronic Qualifiers: Diabetes mellitus type: type 2 Diabetes mellitus complication status: with neurologic complications Diabetes mellitus complication detail: with unspecified neuropathy Qualified Code(s): E11.40 - Type 2 diabetes mellitus with diabetic neuropathy, unspecified (3) CAD (coronary artery disease) Current Visit: Yes Status: Acute Qualifiers: Coronary Disease-Associated Artery/Lesion type: [place] artery [place] vs. transplanted heart: [place] heart Associated angina: with unspecified angina Qualified Code(s): I25.119 - Atherosclerotic heart disease of [place] coronary artery with unspecified angina pectoris (4) Tobacco dependence Current Visit: Yes Status: Acute - Constitutional Vitals: Temp Pulse Resp BP Pulse Ox 98.2 F 96 19 124/70 97 10/11/17 19:05 10/11/17 19:05 10/11/17 19:05 10/11/17 19:05 10/11/17 19:05 Internal Medicine: Result - Labs CBC & Chem 7: 10/11/17 04:00 10/11/17 04:00 Labs: Short CBC 10/11/17 Range/Units 04:00 WBC 7.7 (4.3-11.1) K/mcL Hgb 9.7 L (11.5-15.4) g/dL Hct 28.0 L (35.3-44.9) % Plt Count 160 (140-400) K/mcL Neutrophils # 5.6 (1.6-8.9) K/mcL BMP 10/11/17 04:00 Sodium 134 L Potassium 4.2 Chloride 100 Carbon Dioxide 28 BUN 17 Creatinine 0.56 L Glucose 163 H Calcium 8.2 L - ABG Interpretation ABG results: ABG ABG pH 7.38 pH Units (7.32-7.45) 10/08/17 17:27 ABG pCO2 40 mmHg (35-45) 10/08/17 17:27 ABG pO2 115 mmHg (85-104) H 10/08/17 17:27 ABG O2 Saturation 98 % (95-98) 10/08/17 17:27 PT/INR, D-dimer PT 13.7 Seconds (9.4-12.1) H 10/09/17 02:55 D-Dimer 317 ng/mLFEU (0-500) 10/04/17 01:28 - Attending Attestation I examined this patient and my medical decision-making was reviewed with the Resident Physician. I agree with the documented findings, disposition and treatment plan as described except to the extent set forth below.
[2017-10-11] MEDS: *HR* OxyCODONE/APAP 5/325 TABLET PO PRN (16:23)
[2017-10-12] MEDS: *HR* OxyCODONE/APAP 5/325 TABLET PO PRN ×2 (04:12→20:38)
[2017-10-12] MEDS: *HR* Heparin 5,000 UNIT/ML VIAL SQ SCH ×2 (06:09→17:21)
[2017-10-12] MEDS: Ketorolac 15 MG/ML VIAL IVP SCH ×3 (06:09→17:21)
--- NOTE | 2017-10-12 08:03 | Internal Med Progress Note ---
<MichaelSha - Last Filed: 10/12/17 12:01> Hospitalist Progress Note - Encounter Date of Encounter: 10/12/17 Time of Encounter: 08:02 - Subjective Interval History: Patient seen and examined this morning; currently sitting at bedside chair. Patient reports that she is feeling well. Only complaint today is some minor lower rib discomfort that she was experiencing last night; was subsequently relieved with Toradol. Patient reports that she has been ambulating without difficulty. She denies chest pain, shortness of breath, palpitations, fever, chills, nausea, or vomiting. Patient denies having any pain or discomfort around her surgical incision site. Area is currently wrapped and dressed. She has no further complaints at this time. - Exam Vitals: Temp Pulse Resp BP Pulse Ox 97.8 F 73 18 122/75 95 10/12/17 07:22 10/12/17 07:22 10/12/17 07:22 10/12/17 07:22 10/12/17 07:22 Exam: General: Conversant, No Apparent Distress Neck: No JVD, Normal carotid pulses Cardiac: Reg Rate and Rhythm, Normal S1 and S2, No Murmur Chest: Surgical site is currently dressed; no discharge from the area, no sign of infection, dry/intact dressing Lungs: Clear to auscultation bilaterally, No Wheeze, Rales, Rhonchi Neuro: Alert and responsive, No focal deficits noted Vascular: Normal capillary refill Extremities: No Clubbing, No Cyanosis, No Edema - Assessment and Plan (1) CAD (coronary artery disease) Current Visit: Yes Status: Acute Assessment and Plan: Initially presented w/ CP; known hx of CAD s/p STEMI and PCI in 2014 - s/p CABG 4 on 10/08; Postop day 5 - Patient has been transferred from ICU to stepdown unit - Vital signs have been stable in the last 24 hours - Cardiothoracic surgery is onboard; would appreciate further recommendations Plan: - Continue ASA 81 mg, Lipitor 40 mg, Lopressor 50 mg - Toradol and oxycodone as needed for pain control (2) Hypertension Current Visit: Yes Status: Chronic Assessment and Plan: Known history of hypertension - Blood pressure stable in the last 24 hours; SBP 120-140 Plan: - Metoprolol 50 mg PO BID (3) Diabetes mellitus Current Visit: Yes Status: Chronic Assessment and Plan: Hemoglobin A1c 8.8 - Last glucose was 163 - Continue SSI, high-dose corrective schedule (4) Tobacco dependence Current Visit: Yes Status: Acute DVT Prophylaxis: Heparin 5000 subcutaneous - Time Spent with Patient Total time spent is greater than 50% in coordination of care (as documented) at patient's floor/unit and/or counseling patient: less than 15 minutes Internal Medicine: Result - Labs CBC & Chem 7: 10/11/17 04:00 10/11/17 04:00 - ABG Interpretation ABG results: ABG ABG pH 7.38 pH Units (7.32-7.45) 10/08/17 17:27 ABG pCO2 40 mmHg (35-45) 10/08/17 17:27 ABG pO2 115 mmHg (85-104) H 10/08/17 17:27 ABG O2 Saturation 98 % (95-98) 10/08/17 17:27 PT/INR, D-dimer PT 13.7 Seconds (9.4-12.1) H 10/09/17 02:55 D-Dimer 317 ng/mLFEU (0-500) 10/04/17 01:28 - VTE Documentation of Mechanical Device: Graduated compression elastic hosiery Consult Discharge Plan - Plan Referrals: Joseluis Sarmiento MD [Partnered Physician] - 11/08/17 1:00 pm Lotus Best CNP [Partnered Physician] - 11/28/17 9:30 am Mena Collazo CNP [Advanced Practice Nurse] - 10/18/17 9:45 am <Camila Miranda - Last Filed: 10/12/17 17:06> Hospitalist Progress Note - Encounter Date of Encounter: 10/12/17 - Exam Vitals: Temp Pulse Resp BP Pulse Ox 98.4 F 91 16 157/80 96 10/12/17 15:33 10/12/17 15:33 10/12/17 16:14 10/12/17 16:14 10/12/17 16:14 - Assessment and Plan (1) Hypertension Current Visit: Yes Status: Chronic (2) Diabetes mellitus Current Visit: Yes Status: Chronic (3) CAD (coronary artery disease) Current Visit: Yes Status: Acute (4) Tobacco dependence Current Visit: Yes Status: Acute - Summary of Assessment and Plan Summary of Assessment and Plan: I examined this patient and my medical decision-making was reviewed with the Resident Physician. I agree with the documented findings, disposition and treatment plan as described except to the extent set forth below. Patient likely okay for discharge tomorrow. Will need oral diabetic medication on discharge. She has no insurance currently and so will consider pricing for medication selection. - Time Spent with Patient Total time spent is greater than 50% in coordination of care (as documented) at patient's floor/unit and/or counseling patient: Internal Medicine: Result - Labs CBC & Chem 7: 10/11/17 04:00 10/11/17 04:00 - ABG Interpretation ABG results: ABG ABG pH 7.38 pH Units (7.32-7.45) 10/08/17 17:27 ABG pCO2 40 mmHg (35-45) 10/08/17 17:27 ABG pO2 115 mmHg (85-104) H 10/08/17 17:27 ABG O2 Saturation 98 % (95-98) 10/08/17 17:27 PT/INR, D-dimer PT 13.7 Seconds (9.4-12.1) H 10/09/17 02:55 D-Dimer 317 ng/mLFEU (0-500) 10/04/17 01:28 <Sha Rodriguez - Last Filed: 10/12/17 12:01> (1) CAD (coronary artery disease) Qualifiers: Coronary Disease-Associated Artery/Lesion type: [place] artery [place] vs. transplanted heart: [place] heart Associated angina: with unspecified angina Qualified Code(s): I25.119 - Atherosclerotic heart disease of [place] coronary artery with unspecified angina pectoris (2) Hypertension Qualifiers: Hypertension type: essential hypertension Qualified Code(s): I10 - Essential (primary) hypertension (3) Diabetes mellitus Qualifiers: Diabetes mellitus type: type 2 Diabetes mellitus complication status: with neurologic complications Diabetes mellitus complication detail: with unspecified neuropathy <Camila Miranda - Last Filed: 10/12/17 17:06> (1) Hypertension Qualifiers: Hypertension type: essential hypertension Qualified Code(s): I10 - Essential (primary) hypertension (2) Diabetes mellitus Qualifiers: Diabetes mellitus type: type 2 Diabetes mellitus complication status: with neurologic complications Diabetes mellitus complication detail: with unspecified neuropathy (3) CAD (coronary artery disease) Qualifiers: Coronary Disease-Associated Artery/Lesion type: [place] artery [place] vs. transplanted heart: [place] heart Associated angina: with unspecified angina Qualified Code(s): I25.119 - Atherosclerotic heart disease of [place] coronary artery with unspecified angina pectoris
[2017-10-12] MEDS: Aspirin Enteric Coated 81 MG Tablet PO SCH (08:24)
[2017-10-12] MEDS: Chlorhexidine Rinse 15 ML MOUTHWASH MM SCH ×2 (08:24→20:38)
[2017-10-12] MEDS: Insulin LISPRO 300 UNITS/3 ML VIAL SQ SCH ×4 (08:38→20:33)
[2017-10-12] MEDS ORDERED: Bisacodyl 10 MG RECTAL SUPPOSITORY RC STA (11:39)
--- NOTE | 2017-10-12 13:08 | Cardiothoracic Progress Note ---
Date of Encounter: 10/12/17 Time of Encounter: 13:09 - Subjective Interval history: Patient seen and examined. She is status post CABG 4 (postoperative day #4). Postoperatively she had no acute events. She is ambulating in the [place] and off oxygen. Her wounds are all clean and dry. She has not had a bowel movement and we discussed a suppository to facilitate BM. Emphasize importance of pulmonary toilet and plans for possible discharge home tomorrow. Vital Signs, Last 4 Hours Temp Pulse Resp BP Pulse Ox 10/12/17 12:15 98.0 F 68 16 117/72 97 10/12/17 11:41 16 97 10/12/17 11:08 98.0 F 68 16 117/72 95 Oxgyen Flow Rate Oxygen Flow Rate (LPM) 0 Clinical Data, last 8 Hours Output, Urine Amount 0 Output, Urine Amount 0 Output, Urine Amount 200 Weight 10/10/17 10/11/17 10/12/17 23:59 23:59 23:59 Weight 80.8 kg 81.2 kg 82.3 kg - Physical Examination Sternum: Stable Pacing Wires: In place - Labs 10/11/17 04:00 10/11/17 04:00 - VTE Documentation of Mechanical Device: Graduated compression elastic hosiery Consult Discharge Plan - Plan Referrals: Joseluis Sarmiento MD [Partnered Physician] - 11/08/17 1:00 pm Lotus Best CNP [Partnered Physician] - 11/28/17 9:30 am Mena Collazo CNP [Advanced Practice Nurse] - 10/18/17 9:45 am
[2017-10-13] MEDS: Ketorolac 15 MG/ML VIAL IVP SCH ×2 (00:07→05:48)
[2017-10-13] MEDS: *HR* Heparin 5,000 UNIT/ML VIAL SQ SCH (05:48)
[2017-10-13] MEDS: Aspirin Enteric Coated 81 MG Tablet PO SCH (07:02)
[2017-10-13] MEDS: *HR* OxyCODONE/APAP 5/325 TABLET PO PRN ×2 (07:02→12:36)
[2017-10-13] MEDS: Chlorhexidine Rinse 15 ML MOUTHWASH MM SCH (07:03)
[2017-10-13 07:24] VITALS: BP 132/74
--- NOTE | 2017-10-13 07:42 | Internal Med Progress Note ---
<Sha Rodriguez - Last Filed: 10/13/17 11:05> Hospitalist Progress Note - Encounter Date of Encounter: 10/13/17 Time of Encounter: 08:15 - Subjective Interval History: Patient seen and examined this morning; currently sitting at bedside chair. Patient reports that she is feeling well. Ambulating without difficulty. She denies chest pain, shortness of breath, palpitations, fever, chills, nausea, or vomiting. Patient denies having any pain or discomfort around her surgical incision site. Area is currently wrapped and dressed. She has no further complaints at this time. Likely discharge today. - Exam Vitals: Temp Pulse Resp BP Pulse Ox 97.5 F L 75 17 132/74 97 10/13/17 07:16 10/13/17 07:16 10/13/17 07:16 10/13/17 07:16 10/13/17 07:16 Exam: General: Conversant, No Apparent Distress Neck: No JVD, Normal carotid pulses Cardiac: Reg Rate and Rhythm, Normal S1 and S2, No Murmur Chest: Surgical site is currently dressed; no discharge from the area, no sign of infection, dry/intact dressing Lungs: Clear to auscultation bilaterally, No Wheeze, Rales, Rhonchi Neuro: Alert and responsive, No focal deficits noted Vascular: Normal capillary refill Extremities: No Clubbing, No Cyanosis, No Edema - Assessment and Plan (1) CAD (coronary artery disease) Status: Acute Assessment and Plan: Initially presented w/ CP; known hx of CAD s/p STEMI and PCI in 2014 - s/p CABG 4 on 10/08; Postop day 6 - Patient has been transferred from ICU to 2N stepdown unit - Vital signs have been stable in the last 24 hours - Cardiothoracic surgery is onboard; would appreciate further recommendations Plan: - Continue ASA 81 mg, Lipitor 40 mg, Lopressor 50 mg - Toradol and oxycodone as needed for pain control (2) Hypertension Status: Chronic Assessment and Plan: Known history of hypertension - Blood pressure stable in the last 24 hours; SBP 120-140 Plan: - Metoprolol 50 mg PO BID (3) Diabetes mellitus Status: Chronic Assessment and Plan: Hemoglobin A1c 8.8 - Continue SSI, high-dose corrective schedule (4) Tobacco dependence Status: Acute Assessment and Plan: Counseled regarding smoking cessation - Time Spent with Patient Total time spent is greater than 50% in coordination of care (as documented) at patient's floor/unit and/or counseling patient: less than 15 minutes Internal Medicine: Result - Labs CBC & Chem 7: 10/11/17 04:00 10/11/17 04:00 - ABG Interpretation ABG results: ABG ABG pH 7.38 pH Units (7.32-7.45) 10/08/17 17:27 ABG pCO2 40 mmHg (35-45) 10/08/17 17:27 ABG pO2 115 mmHg (85-104) H 10/08/17 17:27 ABG O2 Saturation 98 % (95-98) 10/08/17 17:27 PT/INR, D-dimer PT 13.7 Seconds (9.4-12.1) H 10/09/17 02:55 D-Dimer 317 ng/mLFEU (0-500) 10/04/17 01:28 - VTE Documentation of Mechanical Device: Graduated compression elastic hosiery Consult Discharge Plan - Plan Instructions: Metoprolol (By mouth), Hydrocodone/Acetaminophen (By mouth), Aspirin (By mouth), Glimepiride (By mouth), Atorvastatin (By mouth), Coronary Artery Bypass Graft (DC), Diabetes Mellitus Type 2 in Adults (DC), Coronary Artery Bypass Graft, Spray Gunner (GEN), Sternal Precautions (GEN), Sternal Precautions, Spray Gunner (GEN) Referrals: Joseluis Sarmiento MD [Partnered Physician] - 11/08/17 1:00 pm Lotus Best CNP [Partnered Physician] - 11/28/17 9:30 am Mena Collazo CNP [Advanced Practice Nurse] - 10/18/17 9:45 am Prescriptions: Aspirin Enteric Coated [Aspirin EC] 81 mg PO DAILY #30 tablet.dr Schwarz [Lipitor] 40 mg PO HS #30 tablet Glimepiride [Amaryl] 1 mg PO DAILY #30 tablet HYDROcodone/Acet 5/325 mg [[place] 5-325 mg] 1 tab PO Q6H PRN 7 Days #28 tab PRN Reason: Pain Metoprolol Tartrate 50 mg PO BID #60 tablet <Camila Miranda - Last Filed: 10/14/17 01:25> Hospitalist Progress Note - Encounter Date of Encounter: 10/14/17 - Exam Vitals: Temp Pulse Resp BP Pulse Ox 97.5 F L 75 16 132/74 97 10/13/17 07:16 10/13/17 07:16 10/13/17 08:08 10/13/17 08:08 10/13/17 08:08 - Assessment and Plan (1) Hypertension Status: Chronic (2) Diabetes mellitus Status: Chronic (3) CAD (coronary artery disease) Status: Acute (4) Tobacco dependence Status: Acute - Summary of Assessment and Plan Summary of Assessment and Plan: I examined this patient and my medical decision-making was reviewed with the Resident Physician. I agree with the documented findings, disposition and treatment plan as described except to the extent set forth below. - Time Spent with Patient Total time spent is greater than 50% in coordination of care (as documented) at patient's floor/unit and/or counseling patient: Internal Medicine: Result - Labs CBC & Chem 7: 10/11/17 04:00 10/11/17 04:00 - ABG Interpretation ABG results: ABG ABG pH 7.38 pH Units (7.32-7.45) 10/08/17 17:27 ABG pCO2 40 mmHg (35-45) 10/08/17 17:27 ABG pO2 115 mmHg (85-104) H 10/08/17 17:27 ABG O2 Saturation 98 % (95-98) 10/08/17 17:27 PT/INR, D-dimer PT 13.7 Seconds (9.4-12.1) H 10/09/17 02:55 D-Dimer 317 ng/mLFEU (0-500) 10/04/17 01:28 <Sha Rodriguez - Last Filed: 10/13/17 11:05> (1) CAD (coronary artery disease) Qualifiers: Coronary Disease-Associated Artery/Lesion type: [place] artery [place] vs. transplanted heart: [place] heart Associated angina: with unspecified angina Qualified Code(s): I25.119 - Atherosclerotic heart disease of [place] coronary artery with unspecified angina pectoris (2) Hypertension Qualifiers: Hypertension type: essential hypertension Qualified Code(s): I10 - Essential (primary) hypertension (3) Diabetes mellitus Qualifiers: Diabetes mellitus type: type 2 Diabetes mellitus complication status: with neurologic complications Diabetes mellitus complication detail: with unspecified neuropathy <Camila Miranda - Last Filed: 10/14/17 01:25> (1) Hypertension Qualifiers: Hypertension type: essential hypertension Qualified Code(s): I10 - Essential (primary) hypertension (2) Diabetes mellitus Qualifiers: Diabetes mellitus type: type 2 Diabetes mellitus complication status: with neurologic complications Diabetes mellitus complication detail: with unspecified neuropathy Qualified Code(s): E11.40 - Type 2 diabetes mellitus with diabetic neuropathy, unspecified; Z79.4 - snf (current) use of insulin (3) CAD (coronary artery disease) Qualifiers: Coronary Disease-Associated Artery/Lesion type: [place] artery [place] vs. transplanted heart: [place] heart Associated angina: with unspecified angina Qualified Code(s): I25.119 - Atherosclerotic heart disease of [place] coronary artery with unspecified angina pectoris
[2017-10-13] MEDS: Insulin LISPRO 300 UNITS/3 ML VIAL SQ SCH (08:14)
--- NOTE | 2017-10-13 11:03 | Cardiothoracic Progress Note ---
Date of Encounter: 10/13/17 Time of Encounter: 10:59 - Subjective Procedure(s) Performed: Patient seen and examined. She is postoperative day #5 CABG 4. Postoperatively she had no acute events. She has been ambulating in the [place] and off oxygen. Yesterday she stated she had not had a bowel movement and we discussed a suppository to facilitate BM. The patient reportedly had a bowel movement following her exam yesterday and has had an uneventful night. She is interested in going home today and has no new complaints. Her vital signs of all been stable she has no evidence of arrhythmias. The patient pacing wires and sternal dressing were removed at the bedside. Her sternal wound is clean dry and intact and showed no evidence of sternal instability. I am recommending she will go home on her current medications to include her Lopressor, statin and aspirin. She is also on hypoglycemic agent. The hospitalist has agreed to arrange for the discharge and provided prescriptions for medications. The plan was explained to the patient and nursing staff at bedside. The patient understands and agrees with the plan. She understands the importance of increased activity as tolerated and understands sternal precautions. Interval history: Patient seen and examined. She is status post CABG 4 (postoperative day #4). Postoperatively she had no acute events. She is ambulating in the [place] and off oxygen. Her wounds are all clean and dry. She has not had a bowel movement and we discussed a suppository to facilitate BM. Emphasize importance of pulmonary toilet and plans for possible discharge home tomorrow. Vital Signs, Last 4 Hours Temp Pulse Resp BP Pulse Ox 10/13/17 08:08 16 132/74 97 10/13/17 07:16 97.5 F L 75 17 132/74 97 10/13/17 07:15 97.5 F L 75 17 132/74 97 [place]gy[place] Flow Rate Oxygen Flow Rate (LPM) 0 Clinical Data, last 8 Hours Output, Urine Amount 0 Output, Urine Amount 500 Weight 10/11/17 10/12/17 10/13/17 23:59 23:59 23:59 Weight 81.2 kg 82.3 kg 81.2 kg - Physical Examination Incision: Open to air Sternum: Stable Pacing Wires: Removed - Labs 10/11/17 04:00 10/11/17 04:00 - VTE Documentation of Mechanical Device: Graduated compression elastic hosiery Consult Discharge Plan - Plan Instructions: Aspirin (By mouth), Glimepiride (By mouth), Atorvastatin (By mouth), Coronary Artery Bypass Graft (DC), Diabetes Mellitus Type 2 in Adults ( DC), Coronary Artery Bypass Graft, Emt Dispatcher (GEN), Sternal Precautions ( GEN), Sternal Precautions, Emt Dispatcher (GEN) Referrals: Joseluis Sarmiento MD [Partnered Physician] - 11/08/17 1:00 pm Lotus Best CNP [Partnered Physician] - 11/28/17 9:30 am Mena Collazo CNP [Advanced Practice Nurse] - 10/18/17 9:45 am Prescriptions: Aspirin Enteric Coated [Aspirin EC] 81 mg PO DAILY #30 tablet. Atorvastatin [Lipitor] 40 mg PO HS #30 tablet Glimepiride [Amaryl] 1 mg PO DAILY #30 tablet
--- NOTE | 2017-10-13 11:13 | Discharge Summary ---
<Sha Rodriguez - Last Filed: 10/13/17 11:14> Orders not resulted at time of discharge: Pending orders 10/07/17 08:08 Red Blood Cells [BBK] Routine Type and Screen [BBK] Routine Date of Encounter: 10/13/17 Time of Encounter: 08:30 - Discharge Diagnosis (1) CAD (coronary artery disease) Priority: Primary Status: Acute Qualifiers: Coronary Disease-Associated Artery/Lesion type: [place] artery [place] vs. transplanted heart: [place] heart Associated angina: with unspecified angina Qualified Code(s): I25.119 - Atherosclerotic heart disease of [place] coronary artery with unspecified angina pectoris (2) Hypertension Priority: Secondary Status: Chronic Qualifiers: Hypertension type: essential hypertension Qualified Code(s): I10 - Essential (primary) hypertension (3) Diabetes mellitus Priority: Secondary Status: Chronic Qualifiers: Diabetes mellitus type: type 2 Diabetes mellitus complication status: with neurologic complications Diabetes mellitus complication detail: with unspecified neuropathy Qualified Code(s): E11.40 - Type 2 diabetes mellitus with diabetic neuropathy, unspecified; 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 She described as shooting radiating pain that went to her left shoulder. She admitted having some nausea. She also stated that she had lightheadedness. Pain was mildly relieved with nitroglycerin emergency department. Initial labs demonstrated an elevated glucose of 297. Troponins 3 were negative. Chest x-ray was unremarkable. Cardiology was consulted, patient underwent cardiac catheterization via right sided femoral access. It demonstrated severe three-vessel coronary artery disease, including an occluded RCA which was previously stented with left to right collaterals. At this time, cardiothoracic surgery was consulted. On 10/08 , patient underwent CABG without any complications. Initially was transferred to the ICU for observation. There were no acute events. Patient was transferred to stepdown unit. She continued to recover well. She ambulated in the hallways, and did not complain of any chest pain postop. On date of discharge, patient was seen by cardiothoracic surgery. She has had no acute events since her operation. She has been ambulating well in the [place]. Cardiothoracic surgery recommends the patient be discharged on her current medications, and to include Lopressor, statin, aspirin and a hypoglycemic agent and her discharge medications. Sternal precautions were relayed to patient. She was seen and examined at bedside today; reports that she is feeling well. Denies having any chest pain. Surgical incision site is currently wrapped and dressed, and is without any discharge. Patient reports that she has not had any pain or discomfort at the site of her incision. - Time Spent with Patient Total time spent providing and/or coordinating discharge services: Greater than 30 minutes (41 minutes) - Discharge Medications Prescriptions: Aspirin Enteric Coated [Aspirin EC] 81 mg PO DAILY #30 tablet. Atorvastatin [Lipitor] 40 mg PO HS #30 tablet Glimepiride [Amaryl] 1 mg PO DAILY #30 tablet HYDROcodone/Acet 5/325 mg [[place] 5-325 mg] 1 tab PO Q6H PRN 7 Days #28 tab PRN Reason: Pain Metoprolol Tartrate 50 mg PO BID #60 tablet Home Medications: Aspirin 81 mg PO DAILY #30 tab.chew 01/12/15 [Rx] Aspirin Enteric Coated [Aspirin EC] 81 mg PO DAILY #30 tablet. 10/13/17 [Rx] Atorvastatin [Lipitor] 40 mg PO HS #30 tablet 10/13/17 [Rx] Glimepiride [Amaryl] 1 mg PO DAILY #30 tablet 10/13/17 [Rx] HYDROcodone/Acet 5/325 mg [[place] 5-325 mg] 1 tab PO Q6H PRN 7 Days #28 tab 10/13 [Rx] Metoprolol Tartrate 50 mg PO BID #60 tablet 10/13/17 [Rx] Allergies/Adverse Reactions: 3 Allergy/AdvReac Type Severity Reaction Status Date / Time aluminum hydroxide AdvReac Chest Pain Verified 09/12/15 06:13 [From Maalox Advanced] bismuth subsalicylate AdvReac Chest Pain Verified 09/12/15 06:13 [From Pepto-Bismol] calcium carbonate AdvReac Chest Pain Verified 09/12/15 06:13 [From Maalox Advanced] magnesium AdvReac Chest Pain Verified 09/12/15 06:13 [From Maalox Advanced] simethicone AdvReac Chest Pain Verified 09/12/15 06:13 [From Maalox Advanced] Date of admission: 10/06/17 08:43 Primary care physician: PCP NONE Consults: 10/08/17 11:48 Consult to Cardiac Rehabilitation-Phase1 [CONS] Routine Comment: Reason for Consult: Post open heart Call Completed: Yes Discharging clinician: Sha Rodriguez Anticipated date of discharge: 10/13/17 - Constitutional Vitals: Temp Pulse Resp BP Pulse Ox 97.5 F L 75 16 132/74 97 10/13/17 07:16 10/13/17 07:16 10/13/17 08:08 10/13/17 08:08 10/13/17 08:08 - Other Additional findings: General: Conversant, No Apparent Distress Neck: No JVD, Normal carotid pulses Cardiac: Reg Rate and Rhythm, Normal S1 and S2, No Murmur Chest: Surgical site is currently dressed; no discharge from the area, no sign of infection, dry/intact dressing Lungs: Clear to auscultation bilaterally, No Wheeze, Rales, Rhonchi Neuro: Alert and responsive, No focal deficits noted Vascular: Normal capillary refill Extremities: No Clubbing, No Cyanosis, No Edema - Patient Status Disposition: Home, Self-Care Condition: Good Overall status at discharge: patient is progressing back to baseline - Discharge Instructions Instructions: Metoprolol (By mouth), Hydrocodone/Acetaminophen (By mouth), Aspirin (By mouth), Glimepiride (By mouth), Atorvastatin (By mouth), Coronary Artery Bypass Graft (DC), Diabetes Mellitus Type 2 in Adults (DC), Coronary Artery Bypass Graft, Metal Drill 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 (GEN), Sternal Precautions (GEN), Sternal Precautions, Metal Drill 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 (GEN) Follow Up With: Joseluis Sarmiento MD [Partnered Physician] - 11/08/17 1:00 pm Lotus Best CNP [Partnered Physician] - 11/28/17 9:30 am Mena Collazo CNP [Advanced Practice Nurse] - 10/18/17 9:45 am - Diet and Activity Activity: increase activity as tolerated Diet: advance to your usual diet - VTE Documentation of Mechanical Device: Graduated compression elastic hosiery <Camila Miranda - Last Filed: 10/14/17 01:26> Orders not resulted at time of discharge: Pending orders 10/07/17 08:08 Red Blood Cells [BBK] Routine Type and Screen [BBK] Routine Date of Encounter: 10/14/17 - Discharge Diagnosis (1) Hypertension Status: Chronic Qualifiers: Hypertension type: essential hypertension Qualified Code(s): I10 - Essential (primary) hypertension (2) Diabetes mellitus Status: Chronic Qualifiers: Diabetes mellitus type: type 2 Diabetes mellitus complication status: with neurologic complications Diabetes mellitus complication detail: with unspecified neuropathy Qualified Code(s): E11.40 - Type 2 diabetes mellitus with diabetic neuropathy, unspecified; Z79.4 - 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 transplanted heart: [place] heart Associated angina: with unspecified angina Qualified Code(s): I25.119 - Atherosclerotic heart disease of [place] coronary artery with unspecified angina pectoris (4) Tobacco dependence Status: Acute Hospital course: Ms. Adame is a 46 year old female - Time Spent with Patient Total time spent providing and/or coordinating discharge services: Date of admission: 10/06/17 08:43 Primary care physician: PCP NONE Consults: 10/08/17 11:48 Consult to Cardiac Rehabilitation-Phase1 [CONS] Routine Comment: Reason for Consult: Post open heart Call Completed: Yes - Constitutional Vitals: Temp Pulse Resp BP Pulse Ox 97.5 F L 75 16 132/74 97 10/13/17 07:16 10/13/17 07:16 10/13/17 08:08 10/13/17 08:08 10/13/17 08:08 - Attending Attestation I examined this patient and my medical decision-making was reviewed with the Resident Physician. I agree with the documented findings, disposition and treatment plan as described except to the extent set forth below.
== END 2017-10-13 14:45 | disposition home or self-care (01) | DRG 234 ==
LOC: 3NENU 00:15 → EMEROO 00:15 → 3NENU 03:54 → 2NENU 10-06 15:23 → ICNU 10-08 08:57 → 2NNU 10-11 14:18
PROVIDERS: ADMIT Internal Medicine; ATTEND Family Medicine

== ENCOUNTER 2020-12-05 21:48 | Observation (INO) ==
[2020-12-05] MEDS ORDERED: Isovue-370 500 ML BOTTLE IVP ONE (23:50)
[2020-12-06 00:37] LABS: Basophils % 0.4 %; Eosinophils # 0.1 K/mcL (0.0-0.6); Eosinophils % 1.1 %; Hematocrit 47.9 % (35.3-44.9); Hemoglobin 16.5 g/dL (11.5-15.4); Immature Granulocytes % 0.2 % (0-4); Lymphocytes # 1.8 K/mcL (0.6-4.6); Lymphocytes % 19.9 %; Mean Corpuscular HGB Conc 34.4 g/dL (31.6-35.5); Mean Corpuscular Hemoglobin 29.9 pg (28.0-33.3); Mean Corpuscular Volume 86.8 fL (83.0-100.0); Mean Platelet Volume 10.8 fL (9.4-12.4); Monocytes # 0.6 K/mcL (0.0-1.3); Monocytes % 6.1 %; Neutrophils # 6.5 K/mcL (1.6-8.9); Platelet Count 203 K/mcL (140-400); Red Blood Count 5.52 M/mcL (3.82-4.97); Red Cell Distribution Width 11.9 % (11.5-14.5); Segmented Neutrophils % 72.3 %
[2020-12-06] MEDS ORDERED: lisinopriL 5 MG TABLET PO STA (00:53)
[2020-12-06 00:58] LABS: Alanine Aminotransferase 13 Units/L (7-52); Albumin/Globulin Ratio 1.3 (1.1-2.2); Alkaline Phosphatase 78 Units/L (34-104); Aspartate Amino Transferase 11 Units/L (13-39); BUN/Creatinine Ratio 25 (6-26); Bilirubin,Direct 0.1 mg/dL (0.0-0.2); Bilirubin,Indirect 0.5 mg/dL (0.0-1.0); Bilirubin,Total 0.6 mg/dL (0.3-1.0); Blood Urea Nitrogen 16 mg/dL (6-20); Calcium 8.9 mg/dL (8.6-10.3); Carbon Dioxide 28 mEq/L (23-29); Chloride 99 mEq/L (98-107); Glucose 305 mg/dL (70-105); Osmolality,Calculated 295 (280-300); Potassium 3.6 mEq/L (3.5-5.1); Sodium 136 mEq/L (136-145); Troponin I < 0.03 ng/mL (< 0.04); eGFR For African Americans > 60 (> 60); eGFR For Non-African Americans > 60 (> 60)
[2020-12-06 01:10] LABS: Influenza A PCR Negative (Negative); Influenza B PCR Negative (Negative); Resp. Syncytial Virus PCR Negative (Negative)
[2020-12-06 01:17] LABS: SARS-CoV-2 by PCR (In House) Negative (Negative)
[2020-12-06] MEDS ORDERED: *HR* Heparin 5,000 UNIT/ML VIAL IVP PRN ×2 (03:22)
[2020-12-06] MEDS ORDERED: *HR* Heparin 5,000 UNIT/ML VIAL IVP ONE (03:22)
[2020-12-06] MEDS: Heparin 25,000UNIT/250ML 1/2NS 25,000 UNIT/250 ML IV.SOLN IVC SCH ×2 (03:57→22:15)
[2020-12-06 04:34] LABS: Heparin anti-factor XA UFH < 0.04 IU/mL (0.30-0.70); Prothrombin Time 11.6 Seconds (9.4-12.1)
[2020-12-06 04:37] LABS: Activated Partial Thrombo Time 24.7 Seconds (26.0-36.0)
[2020-12-06] MEDS ORDERED: Naloxone 0.4 MG/ML INJ IVP PRN (05:13)
[2020-12-06] MEDS ORDERED: D5% in Water 1,000 ML IVC PRN (06:17)
[2020-12-06] MEDS ORDERED: *HR* Dextrose 50 % in Water (Syg) 50 ML SYRINGE IVP PRN (06:17)
[2020-12-06] MEDS ORDERED: Dextrose Gel 15 GM/37.5 ML TUBE PO PRN ×2 (06:17)
[2020-12-06] MEDS: Insulin LISPRO 300 UNITS/3 ML VIAL SUBQ SCH ×3 (07:16→21:01)
[2020-12-06] MEDS: Aspirin Enteric Coated 81 MG Tablet PO SCH (09:16)
[2020-12-06 09:18] LABS: Estimated Average Glucose 252 mg/dl; Hemoglobin A1C 10.4 %
[2020-12-06] MEDS ORDERED: Heparin 1,000 UNITS/500 mL 500 ML ONE (10:35)
[2020-12-06] MEDS ORDERED: *HR* Heparin 10,000 UNIT/10 ML VIAL ONE (10:35)
[2020-12-06] MEDS ORDERED: 0.9 % Sodium Chloride 1,000 ML ONE ×2 (10:35→12:02)
[2020-12-06] MEDS ORDERED: *HR* FentaNYL (PF) 100 MCG/2 ML VIAL ONE ×2 (10:52→13:09)
[2020-12-06] MEDS ORDERED: *HR* Midazolam HCl 2 MG/2 ML VIAL ONE ×2 (10:53→13:10)
[2020-12-06] MEDS ORDERED: Ondansetron 4 MG/2 ML VIAL IVP PRN (13:28)
[2020-12-06] MEDS: 0.9 % Sodium Chloride 1,000 ML IVC SCH ×2 (18:46→18:50)
[2020-12-07] MEDS: Insulin LISPRO 300 UNITS/3 ML VIAL SUBQ SCH ×3 (00:42→12:00)
[2020-12-07 04:33] LABS: Basophils % 0.4 %; Eosinophils # 0.2 K/mcL (0.0-0.6); Eosinophils % 1.9 %; Hematocrit 44.7 % (35.3-44.9); Hemoglobin 15.3 g/dL (11.5-15.4); Immature Granulocytes % 0.4 % (0-4); Lymphocytes # 2.1 K/mcL (0.6-4.6); Lymphocytes % 26.3 %; Mean Corpuscular HGB Conc 34.2 g/dL (31.6-35.5); Mean Corpuscular Hemoglobin 29.8 pg (28.0-33.3); Mean Platelet Volume 10.9 fL (9.4-12.4); Monocytes # 0.4 K/mcL (0.0-1.3); Monocytes % 5.2 %; Neutrophils # 5.2 K/mcL (1.6-8.9); Platelet Count 202 K/mcL (140-400); Red Blood Count 5.14 M/mcL (3.82-4.97); Red Cell Distribution Width 11.9 % (11.5-14.5); Segmented Neutrophils % 65.8 %
[2020-12-07 04:48] LABS: BUN/Creatinine Ratio 24 (6-26); Blood Urea Nitrogen 14 mg/dL (6-20); Calcium 8.5 mg/dL (8.6-10.3); Carbon Dioxide 25 mEq/L (23-29); Chloride 106 mEq/L (98-107); Glucose 123 mg/dL (70-105); Osmolality,Calculated 288 (280-300); Potassium 3.8 mEq/L (3.5-5.1); Sodium 138 mEq/L (136-145); eGFR For African Americans > 60 (> 60); eGFR For Non-African Americans > 60 (> 60)
[2020-12-07] MEDS: Acetaminophen 325 MG TABLET PO PRN ×2 (06:04→12:00)
[2020-12-07] MEDS: 0.9 % Sodium Chloride 1,000 ML IVC SCH (06:08)
[2020-12-07] MEDS: Aspirin Enteric Coated 81 MG Tablet PO SCH (09:43)
[2020-12-07 11:47] VITALS: BP 154/84; PULSE 66; TEMP 98.3; O2SAT 98
== END 2020-12-07 16:15 | disposition home or self-care (01) ==
LOC: 3ANU 21:48 → EMEROOARM 21:48 → SUATTDRO 12-06 04:07 → 3ANU 12-06 05:15
PROVIDERS: ADMIT Internal Medicine; ATTEND Internal Medicine